=== PATIENT | male | born 1960 | race Caucasian/White ===

== ENCOUNTER 2016-11-22 19:51 | Emergency (ER) | payer MEDICAID ==
[~2016-11-22] VITALS: Ht 182.9 cm; Wt 104.6 kg
[~2016-11-22 19:51] MED LIST: ABILIFY; APIX5TAB PO; TRAMADOL
[2016-11-22 21:09] VITALS: BP 118/76
[2016-11-22] MEDS ORDERED: SODIUM CHLORIDE FLUSH 10ML SYR IVF ONE (22:00)
[2016-11-22 22:17] LABS: ASPARTATE AMINO TRANSFERASE 21 U/L (15-37); BLOOD UREA NITROGEN 23 mg/dL (7-18)
[2016-11-22 22:18] LABS: HEMOGLOBIN 14.5 g/dL (13.7-18.0)
== END 2016-11-23 01:05 | disposition home or self-care (01) ==
LOC: ED 22:05
DX: R60.0 Localized edema (principal); I82.532 Chronic embolism and thrombosis of left popliteal vein; I10 Essential (primary) hypertension; J44.9 Chronic obstructive pulmonary disease, unspecified; F17.210 Nicotine dependence, cigarettes, uncomplicated
CPT/HCPCS: 36415; 71020; 80053; 85025; 93005

== ENCOUNTER 2017-01-23 04:18 | Emergency (ER) | payer MEDICAID ==
[~2017-01-23] VITALS: Ht 182.9 cm; Wt 99.8 kg
[2017-01-23] MEDS ORDERED: HYDROcodone/APAP 5/325 TABLET ONE (05:20)
[2017-01-23] MEDS ORDERED: HYDROcodone/APAP 5/325 TABLET PO ONE (05:30)
[2017-01-23 05:50] LABS: BLOOD UREA NITROGEN 17 mg/dL (7-18)
[2017-01-23 07:17] VITALS: BP 124/80
== END 2017-01-23 07:20 | disposition home or self-care (01) ==
LOC: ED 05:44
DX: M79.661 Pain in right lower leg (principal); M79.662 Pain in left lower leg; I10 Essential (primary) hypertension; J44.9 Chronic obstructive pulmonary disease, unspecified; Z79.01 Long term (current) use of anticoagulants; Z86.718 Personal history of other venous thrombosis and embolism
CPT/HCPCS: 36415; 80048; 82040; 85025; 93970; 99284

== ENCOUNTER 2017-02-09 09:25 | Emergency (ER) | payer MEDICAID ==
[~2017-02-09] VITALS: Ht 182.9 cm; Wt 98.7 kg
[2017-02-09 09:32] VITALS: BP 136/91
== END 2017-02-09 10:32 | disposition home or self-care (01) ==
LOC: ED 10:29
DX: Z76.0 Encounter for issue of repeat prescription (principal); J44.9 Chronic obstructive pulmonary disease, unspecified; I10 Essential (primary) hypertension; Z86.718 Personal history of other venous thrombosis and embolism; Z86.73 Personal history of transient ischemic attack (TIA), and cerebral infarction without residual deficits; Z86.711 Personal history of pulmonary embolism; F17.210 Nicotine dependence, cigarettes, uncomplicated
CPT/HCPCS: 99283

== ENCOUNTER 2017-04-06 13:41 | Emergency (ER) | payer MEDICAID ==
[~2017-04-06] VITALS: Ht 182.9 cm; Wt 101.7 kg
[2017-04-06 13:55] VITALS: BP 131/68
== END 2017-04-06 16:34 | disposition home or self-care (01) ==
LOC: ED 16:15
DX: G89.29 Other chronic pain (principal); Z76.0 Encounter for issue of repeat prescription; M79.672 Pain in left foot; I10 Essential (primary) hypertension; I25.2 Old myocardial infarction; J44.9 Chronic obstructive pulmonary disease, unspecified; Z86.73 Personal history of transient ischemic attack (TIA), and cerebral infarction without residual deficits; Z86.711 Personal history of pulmonary embolism

== ENCOUNTER 2017-05-27 12:28 | Emergency (ER) | payer MEDICAID ==
[~2017-05-27] VITALS: Ht 182.9 cm; Wt 100.0 kg
[2017-05-27] MEDS ORDERED: SODIUM CHLORIDE FLUSH 10ML SYR IVF ONE (14:00)
[2017-05-27] MEDS ORDERED: ONDANSETRON 2MG/ML, 2ML IVPush ONE (14:00)
[2017-05-27] MEDS ORDERED: FAMOTIDINE 20 MG/2 ML IVP ONE (14:00)
[2017-05-27] MEDS ORDERED: SODIUM CHLORIDE 0.9% 1,000ML IVBOLUS ONE (14:00)
[2017-05-27 14:25] LABS: HEMATOCRIT 47.9 % (39.2-51.8); HEMOGLOBIN 16.2 g/dL (13.7-18.0); WHITE BLOOD COUNT 7.1 x10^3/uL (3.4-10)
[2017-05-27 14:37] LABS: ASPARTATE AMINO TRANSFERASE 13 U/L (15-37); BLOOD UREA NITROGEN 20 mg/dL (7-18)
[2017-05-27 14:43] LABS: IS PT STATUS REG ER OR PRE ER? YES
[2017-05-27] MEDS ORDERED: FAMOTIDINE 20 MG/2 ML ONE (15:24)
[2017-05-27] MEDS ORDERED: ONDANSETRON 2MG/ML, 2ML ONE (15:24)
[2017-05-27 18:16] VITALS: BP 117/60
== END 2017-05-27 18:22 | disposition home or self-care (01) ==
LOC: ED 17:50
DX: R19.7 Diarrhea, unspecified (principal); R11.2 Nausea with vomiting, unspecified; I10 Essential (primary) hypertension; I25.2 Old myocardial infarction; Z86.718 Personal history of other venous thrombosis and embolism; Z86.73 Personal history of transient ischemic attack (TIA), and cerebral infarction without residual deficits
CPT/HCPCS: 36415; 71010; 80053; 83690; 84484; 85025; 93005; 96361; 96374; 96375; 99285; J2405; J7030; S0028

== ENCOUNTER 2017-09-04 18:33 | Emergency (ER) | payer MEDICAID ==
[~2017-09-04] VITALS: Ht 182.9 cm; Wt 102.7 kg
[2017-09-04 18:55] VITALS: BP 144/84
== END 2017-09-04 19:54 | disposition home or self-care (01) ==
LOC: ED 19:43
DX: S62.626A Displaced fracture of middle phalanx of right little finger, initial encounter for closed fracture (principal); I10 Essential (primary) hypertension; F17.200 Nicotine dependence, unspecified, uncomplicated; J44.9 Chronic obstructive pulmonary disease, unspecified; I25.2 Old myocardial infarction; X58.XXXA Exposure to other specified factors, initial encounter; Y93.89 Activity, other specified; Y92.89 Other specified places as the place of occurrence of the external cause; Y99.8 Other external cause status
CPT/HCPCS: 99281

== ENCOUNTER 2017-09-21 00:11 | Inpatient (IN) | payer MEDICAID ==
[~2017-09-21] VITALS: Ht 182.9 cm; Wt 103.5 kg
[~2017-09-21 00:11] MED LIST changes: +AZIT500T2 PO; +CYCL25PO20 PO; +CYCL5TAB PO; +LEVO25TA2 PO
[2017-09-21] MEDS ORDERED: SODIUM CHLORIDE FLUSH 10ML SYR IVF ONE (01:00)
[2017-09-21] MEDS ORDERED: ALBUTEROL SULFATE 2.5 MG/3 ML NPPB ONE ×2 (01:00→02:30)
[2017-09-21 01:01] LABS: BASOPHILS # (AUTO) 0.03 x10^3/uL (0-0.1); BASOPHILS % (AUTO) 0 % (0-1); EOSINOPHILS % (AUTO) 0 % (1-7); LYMPHOCYTES # (AUTO) 1.59 x10^3/uL (1-3.4); LYMPHOCYTES % (AUTO) 13 % (22-44); MD NO; MEAN CORPUSCULAR HEMOGLOBIN 30.8 pg (27.5-34.5); MEAN CORPUSCULAR HGB CONC 32.6 g/dL (33.2-36.2); MEAN CORPUSCULAR VOLUME 94.5 fL (81-97); MEAN PLATELET VOLUME 7.3 fL (7.4-10.4); MONOCYTES # (AUTO) 1.42 x10^3/uL (0.2-0.8); MONOCYTES % (AUTO) 12 % (2-9); NEUTROPHILS # (AUTO) 9.26 x10^3/uL (1.8-6.8); NEUTROPHILS % (AUTO) 75 % (42-75); PLATELET COUNT 191 x10^3/uL (130-400); RED BLOOD COUNT 4.46 x10^6/uL (4.38-5.82); RED CELL DISTRIBUTION WIDTH 15.4 % (9.4-14.8)
[2017-09-21] MEDS ORDERED: ALBUTEROL SULFATE 2.5 MG/3 ML ONE (01:03)
[2017-09-21 01:13] LABS: ALBUMIN 3.2 g/dL (3.4-5.0); ANION GAP 8 mmol/L (5-15); CHLORIDE 113 mmol/L (98-107); CREATININE 1.03 mg/dL (0.7-1.3)
[2017-09-21] MEDS ORDERED: DILTIAZEM 125 MG in DEXTROSE 5% 100 ML IV SCH (02:21)
[2017-09-21] MEDS ORDERED: DILTIAZEM 5 MG/ML, 5ML IVPush STA (02:21)
[2017-09-21] MEDS ORDERED: DILTIAZEM 5 MG/ML, 5ML ONE (02:29)
[2017-09-21] MEDS ORDERED: ALBUTEROL/IPRATROPIUM 2.5MG/0.5MG, 3 ML NPPB ONE (02:30)
[2017-09-21] MEDS ORDERED: ALBUTEROL/IPRATROPIUM 2.5MG/0.5MG, 3 ML ONE (02:30)
[2017-09-21 04:13] VITALS: BP 134/89
[2017-09-21] MEDS ORDERED: NICOTINE 21 MG/24 HR PATCH.TD24 ONE (04:25)
[2017-09-21] MEDS: NICOTINE 21 MG/24 HR PATCH.TD24 TD SCH (04:30)
[2017-09-21] MEDS ORDERED: LABETALOL 5MG/ML, 20ML IVPush PRN (06:00)
[2017-09-21] MEDS ORDERED: TRAZODONE 50MG TABLET PO PRN (06:00)
[2017-09-21] MEDS ORDERED: GUAIFENESIN/DM 200-20MG, 10ML UDC PO PRN (06:00)
[2017-09-21] MEDS ORDERED: NITROGLYCERIN 0.4 MG BOTTLE (25 TABS) SL PRN (06:00)
[2017-09-21] MEDS ORDERED: ACETAMINOPHEN 325 MG TABLET PO PRN (06:00)
[2017-09-21] MEDS ORDERED: ALBUTEROL/IPRATROPIUM 2.5MG/0.5MG, 3 ML NPPB PRN (06:00)
[2017-09-21] MEDS: DILTIAZEM 30 MG TABLET PO SCH ×3 (06:07→17:16)
[2017-09-21 06:58] LABS: TROPONIN I 0.034 ng/mL (0.000-0.045)
[2017-09-21] MEDS: ALBUTEROL/IPRATROPIUM 2.5MG/0.5MG, 3 ML NPPB SCH ×4 (07:00→18:43)
[2017-09-21 07:38] VITALS: BP 148/93
[2017-09-21] MEDS: APIXABAN 5 MG TABLET PO SCH ×2 (08:23→19:37)
[2017-09-21] MEDS: AZITHROMYCIN 250 MG TABLET PO SCH (08:23)
[2017-09-21] MEDS: LISINOPRIL 10 MG TABLET PO SCH (09:58)
[2017-09-21] MEDS: CARVEDILOL 6.25 MG TABLET PO SCH ×2 (09:58→17:16)
[2017-09-21] MEDS: FUROSEMIDE 20 MG TABLET PO SCH (09:58)
[2017-09-21] MEDS ORDERED: FUROSEMIDE 20 MG TABLET PO ONE (10:00)
[2017-09-21 12:57] VITALS: BP 133/83
[2017-09-21 13:09] LABS: TROPONIN I 0.029 ng/mL (0.000-0.045)
[2017-09-21 13:39] LABS: HEMOGLOBIN A1C 6.5 % (4.2-6.3)
[2017-09-21] MEDS: LORazepam 2 MG/ML, 1ML IVPush PRN ×2 (16:24→20:28)
[2017-09-21 18:35] VITALS: BP 150/83
[2017-09-22] MEDS: DILTIAZEM 30 MG TABLET PO SCH ×3 (00:09→09:58)
[2017-09-22 00:12] VITALS: BP 109/65
[2017-09-22] MEDS: LORazepam 2 MG/ML, 1ML IVPush PRN ×3 (02:15→20:17)
[2017-09-22] MEDS ORDERED: DILTIAZEM 125 MG in DEXTROSE 5% 100 ML IV SCH (02:21)
[2017-09-22 05:45] LABS: BASOPHILS # (AUTO) 0.05 x10^3/uL (0-0.1); BASOPHILS % (AUTO) 0 % (0-1); EOSINOPHILS % (AUTO) 0 % (1-7); LYMPHOCYTES # (AUTO) 1.44 x10^3/uL (1-3.4); LYMPHOCYTES % (AUTO) 11 % (22-44); MD NO; MEAN CORPUSCULAR HGB CONC 32.8 g/dL (33.2-36.2); MEAN CORPUSCULAR VOLUME 94.5 fL (81-97); MEAN PLATELET VOLUME 7.5 fL (7.4-10.4); MONOCYTES # (AUTO) 1.12 x10^3/uL (0.2-0.8); MONOCYTES % (AUTO) 8 % (2-9); NEUTROPHILS # (AUTO) 10.73 x10^3/uL (1.8-6.8); NEUTROPHILS % (AUTO) 80 % (42-75); PLATELET COUNT 191 x10^3/uL (130-400); RED BLOOD COUNT 4.74 x10^6/uL (4.38-5.82)
[2017-09-22 05:56] LABS: ANION GAP 6 mmol/L (5-15); CALCIUM 8.5 mg/dL (8.5-10.1); CHLORIDE 103 mmol/L (98-107); CREATININE 1.09 mg/dL (0.7-1.3)
[2017-09-22] MEDS: CARVEDILOL 6.25 MG TABLET PO SCH (06:08)
[2017-09-22] MEDS: ALBUTEROL/IPRATROPIUM 2.5MG/0.5MG, 3 ML NPPB SCH (07:00)
[2017-09-22 07:40] VITALS: BP 130/78
[2017-09-22] MEDS: APIXABAN 5 MG TABLET PO SCH ×2 (08:20→20:15)
[2017-09-22] MEDS: NICOTINE 21 MG/24 HR PATCH.TD24 TD SCH (08:20)
[2017-09-22] MEDS: AZITHROMYCIN 250 MG TABLET PO SCH (08:21)
[2017-09-22] MEDS: LISINOPRIL 10 MG TABLET PO SCH (08:21)
[2017-09-22] MEDS: FUROSEMIDE 20 MG TABLET PO SCH (08:21)
[2017-09-22] MEDS: MULTIVITAMIN 1 TABLET PO SCH (09:58)
[2017-09-22] MEDS ORDERED: ERGOCALCIFEROL 50,000 UNIT CAPSULE PO SCH (10:00)
[2017-09-22 12:31] VITALS: BP 121/80
[2017-09-22] MEDS: METOPROLOL SUCCINATE 25 MG TAB.ER.24H PO SCH (12:44)
[2017-09-22] MEDS: DILTIAZEM 60 MG TABLET PO SCH ×2 (16:32→21:24)
[2017-09-22 18:29] VITALS: BP 106/71
[2017-09-22] MEDS ORDERED: DILTIAZEM 30 MG TABLET ONE (20:11)
[2017-09-22] MEDS: DOXYCYCLINE 100MG TABLET PO SCH (20:15)
[2017-09-23 02:43] VITALS: BP 117/80
[2017-09-23] MEDS: DILTIAZEM 60 MG TABLET PO SCH ×2 (04:00→09:55)
[2017-09-23] MEDS ORDERED: DILTIAZEM 30 MG TABLET ONE ×2 (04:08→09:53)
[2017-09-23] MEDS: METOPROLOL SUCCINATE 25 MG TAB.ER.24H PO SCH (05:45)
[2017-09-23] MEDS: LORazepam 2 MG/ML, 1ML IVPush PRN (05:49)
[2017-09-23 08:25] VITALS: BP 119/87
[2017-09-23] MEDS: LISINOPRIL 10 MG TABLET PO SCH (08:39)
[2017-09-23] MEDS: DOXYCYCLINE 100MG TABLET PO SCH (08:39)
[2017-09-23] MEDS: APIXABAN 5 MG TABLET PO SCH (08:39)
[2017-09-23] MEDS: MULTIVITAMIN 1 TABLET PO SCH (08:39)
[2017-09-23] MEDS: FUROSEMIDE 20 MG TABLET PO SCH (08:40)
[2017-09-23] MEDS: NICOTINE 21 MG/24 HR PATCH.TD24 TD SCH (08:40)
[2017-09-23] MEDS ORDERED: FLUT1AER INH (09:58)
[2017-09-23] MEDS ORDERED: DOXY100T PO (09:58)
[2017-09-23] MEDS ORDERED: MULT1TAB60 PO (09:58)
[2017-09-23] MEDS ORDERED: PRED5TAB PO (09:58)
[2017-09-23] MEDS ORDERED: METO25TA91 PO (09:58)
[2017-09-23] MEDS ORDERED: FURO20TA3 PO (09:58)
[2017-09-23] MEDS ORDERED: ERGO500017 PO (09:58)
[2017-09-23] MEDS ORDERED: DILT180C PO (09:58)
[2017-09-23] MEDS ORDERED: LISI-167 PO (09:58)
== END 2017-09-23 11:20 | disposition home or self-care (01) | DRG 308 ==
LOC: ED 00:24 → EDIP 02:29 → 5SO 04:04 → DCLOUNGE 09-23 11:02
PROVIDERS: ADMIT Hospitalist; ATTEND Hospitalist
DX: I48.0 Paroxysmal atrial fibrillation (principal); I50.23 Acute on chronic systolic (congestive) heart failure; D68.59 Other primary thrombophilia; E87.2 Acidosis; E44.0 Moderate protein-calorie malnutrition; J44.1 Chronic obstructive pulmonary disease with (acute) exacerbation; E03.9 Hypothyroidism, unspecified; I11.0 Hypertensive heart disease with heart failure; E55.9 Vitamin D deficiency, unspecified; F15.10 Other stimulant abuse, uncomplicated; F17.210 Nicotine dependence, cigarettes, uncomplicated; S62.606A Fracture of unspecified phalanx of right little finger, initial encounter for closed fracture; I25.10 Atherosclerotic heart disease of native coronary artery without angina pectoris; I25.2 Old myocardial infarction; Z79.01 Long term (current) use of anticoagulants; Z59.0 Homelessness; Z86.711 Personal history of pulmonary embolism; Z86.718 Personal history of other venous thrombosis and embolism; Z86.73 Personal history of transient ischemic attack (TIA), and cerebral infarction without residual deficits; Z91.14 Patient's other noncompliance with medication regimen
CPT/HCPCS: 36415; 71045; 80048; 82040; 82306; 82607; 83036; 83735; 84484; 85025; 93005; 94640; 96374; J7613; J7620; J2060; J7512

== ENCOUNTER 2017-10-04 01:14 | Emergency (ER) | payer MEDICAID ==
[~2017-10-04] VITALS: Ht 182.9 cm; Wt 101.9 kg
[~2017-10-04 01:14] MED LIST changes: +DILT180C PO; +DOXY100T PO; +ERGO500017 PO; +FLUT1AER INH; +FURO20TA3 PO; +LISI-167 PO; +METO25TA91 PO; +MULT1TAB60 PO; +PRED5TAB PO
[2017-10-04 01:17] VITALS: BP 121/82
== END 2017-10-04 03:09 | disposition home or self-care (01) ==
LOC: ED 01:55
DX: F41.1 Generalized anxiety disorder (principal); F15.10 Other stimulant abuse, uncomplicated; J44.9 Chronic obstructive pulmonary disease, unspecified; I10 Essential (primary) hypertension; I48.91 Unspecified atrial fibrillation; I25.2 Old myocardial infarction
CPT/HCPCS: 93005; 99284

== ENCOUNTER 2017-10-07 11:00 | Inpatient (IN) | payer MEDICAID ==
[~2017-10-07] VITALS: Ht 182.9 cm; Wt 92.9 kg
[2017-10-07 13:12] LABS: BASOPHILS # (AUTO) 0.02 x10^3/uL (0-0.1); BASOPHILS % (AUTO) 0 % (0-1); EOSINOPHILS # (AUTO) 0.13 x10^3/uL (0-0.4); EOSINOPHILS % (AUTO) 2 % (1-7); LYMPHOCYTES # (AUTO) 1.59 x10^3/uL (1-3.4); LYMPHOCYTES % (AUTO) 26 % (22-44); MD NO; MEAN CORPUSCULAR HEMOGLOBIN 30.9 pg (27.5-34.5); MEAN CORPUSCULAR HGB CONC 33.2 g/dL (33.2-36.2); MEAN CORPUSCULAR VOLUME 92.9 fL (81-97); MEAN PLATELET VOLUME 7.6 fL (7.4-10.4); MONOCYTES # (AUTO) 0.48 x10^3/uL (0.2-0.8); MONOCYTES % (AUTO) 8 % (2-9); NEUTROPHILS # (AUTO) 3.85 x10^3/uL (1.8-6.8); NEUTROPHILS % (AUTO) 63 % (42-75); PLATELET COUNT 161 x10^3/uL (130-400); RED BLOOD COUNT 4.64 x10^6/uL (4.38-5.82); RED CELL DISTRIBUTION WIDTH 14.7 % (9.4-14.8)
[2017-10-07 13:24] LABS: ALBUMIN 3.4 g/dL (3.4-5.0); CALCIUM 8.4 mg/dL (8.5-10.1); CHLORIDE 109 mmol/L (98-107); CREATININE 1.11 mg/dL (0.7-1.3)
[2017-10-07 13:26] LABS: ANION GAP 8 mmol/L (5-15); TROPONIN I 0.026 ng/mL (0.000-0.045)
[2017-10-07 14:36] LABS: MICROSCOPIC NOT IND
[2017-10-07 14:40] LABS: CULTURE INDICATED? NO
[2017-10-07] MEDS ORDERED: METOPROLOL TARTRATE 25 MG TABLET ONE (15:28)
[2017-10-07] MEDS ORDERED: METOPROLOL TARTRATE 50 MG TABLET PO ONE (15:30)
[2017-10-07] MEDS ORDERED: LORazepam 2 MG/ML, 1ML IM ONE (15:30)
[2017-10-07] MEDS ORDERED: LORazepam 2 MG/ML, 1ML ONE (15:34)
[2017-10-07] MEDS ORDERED: DILTIAZEM 5 MG/ML, 5ML IV ONE (16:30)
[2017-10-07] MEDS ORDERED: DILTIAZEM 5 MG/ML, 5ML ONE (16:41)
[2017-10-07] MEDS ORDERED: ERGOCALCIFEROL 50,000 UNIT CAPSULE PO SCH (20:00)
[2017-10-07] MEDS ORDERED: ONDANSETRON 2MG/ML, 2ML IVPush PRN (20:00)
[2017-10-07] MEDS ORDERED: CYCLOBENZAPRINE 10 MG TABLET PO PRN (20:00)
[2017-10-07] MEDS ORDERED: POLYETHYLENE GLYCOL 17 GM PACKET PO PRN (20:00)
[2017-10-07] MEDS ORDERED: hydrALAzine 20 MG/ML, 1ML IVPush PRN (20:00)
[2017-10-07] MEDS ORDERED: BISACODYL 10 MG SUPP PR PRN (20:00)
[2017-10-07] MEDS ORDERED: DOCUSATE 100 MG CAPSULE PO PRN (20:00)
[2017-10-07] MEDS ORDERED: ENALAPRILAT 1.25 MG/ML, 2ML IVPush PRN (20:00)
[2017-10-07] MEDS ORDERED: ACETAMINOPHEN 325 MG TABLET PO PRN (20:00)
[2017-10-07 20:27] LABS: FREE T4 (FREE THYROXINE) 0.86 ng/dL (0.76-1.46); THYROID STIMULATING HORMONE 3.28 mIU/L (0.358-3.740)
[2017-10-07 20:37] VITALS: BP 117/79
[2017-10-07 20:43] LABS: HEMOGLOBIN A1C 6.9 % (4.2-6.3)
[2017-10-07] MEDS ORDERED: HEPARIN 5,000 UNITS/ML, 1ML SQ SCH (21:00)
[2017-10-07] MEDS: NICOTINE 14MG/24 HR PATCH.TD24 TD SCH (21:45)
[2017-10-07] MEDS: APIXABAN 5 MG TABLET PO SCH (21:45)
[2017-10-07 23:03] LABS: AMPHETAMINE SCREEN, URINE Negative (Negative); BARBITURATE SCREEN, URINE Negative (Negative); BENZODIAZEPINE SCREEN, URINE Negative (Negative); CANNABINOID SCREEN, URINE Negative (Negative); COCAINE SCREEN, URINE Negative (Negative); METHADONE SCREEN, URINE Negative (Negative); OPIATE SCREEN, URINE Negative (Negative)
[2017-10-08 00:26] LABS: TROPONIN I 0.042 ng/mL (0.000-0.045)
[2017-10-08] MEDS ORDERED: ALBUTEROL/IPRATROPIUM 2.5MG/0.5MG, 3 ML NPPB PRN (00:30)
[2017-10-08 00:56] VITALS: BP 129/80
[2017-10-08 06:17] LABS: BASOPHILS # (AUTO) 0.02 x10^3/uL (0-0.1); BASOPHILS % (AUTO) 0 % (0-1); EOSINOPHILS # (AUTO) 0.15 x10^3/uL (0-0.4); EOSINOPHILS % (AUTO) 2 % (1-7); LYMPHOCYTES # (AUTO) 1.43 x10^3/uL (1-3.4); LYMPHOCYTES % (AUTO) 21 % (22-44); MD NO; MEAN CORPUSCULAR HEMOGLOBIN 31.1 pg (27.5-34.5); MEAN CORPUSCULAR HGB CONC 33.4 g/dL (33.2-36.2); MEAN CORPUSCULAR VOLUME 93.1 fL (81-97); MEAN PLATELET VOLUME 7.5 fL (7.4-10.4); MONOCYTES # (AUTO) 0.52 x10^3/uL (0.2-0.8); MONOCYTES % (AUTO) 8 % (2-9); NEUTROPHILS # (AUTO) 4.64 x10^3/uL (1.8-6.8); NEUTROPHILS % (AUTO) 69 % (42-75); PLATELET COUNT 155 x10^3/uL (130-400); RED BLOOD COUNT 4.85 x10^6/uL (4.38-5.82); RED CELL DISTRIBUTION WIDTH 14.8 % (9.4-14.8)
[2017-10-08] MEDS: LEVOTHYROXINE 25 MCG TABLET PO SCH (06:23)
[2017-10-08] MEDS: METOPROLOL TARTRATE 50 MG TABLET PO SCH ×2 (06:23→16:32)
[2017-10-08 06:30] LABS: ALBUMIN 3.2 g/dL (3.4-5.0); ANION GAP 8 mmol/L (5-15); CALCIUM 8.8 mg/dL (8.5-10.1); CHLORIDE 110 mmol/L (98-107)
[2017-10-08 06:33] LABS: ALANINE AMINOTRANSFERASE 28 U/L (12-78); ALKALINE PHOSPHATASE 53 U/L (45-117); BILIRUBIN,TOTAL 0.3 mg/dL (0.2-1.0); CHOL/HDL RATIO 3.6; CHOLESTEROL, TOTAL 160 mg/dL (140-239); CREATININE 1.16 mg/dL (0.7-1.3); HDL CHOL % 28 % (26-37); HDL CHOLESTEROL (DIRECT) 45 mg/dL (40-60); LDL CHOLESTEROL,CALCULATED 97 mg/dL (54-169); LDL/HDL RATIO 2.2 (0.5-3.0); TOTAL PROTEIN 5.9 g/dL (6.4-8.2); TRIGLYCERIDES 91 mg/dL (50-200); TROPONIN I 0.044 ng/mL (0.000-0.045); VLDL CHOLESTEROL 18 mg/dL (0-25)
[2017-10-08 06:45] VITALS: BP 128/88
[2017-10-08] MEDS ORDERED: REGADENOSON 0.4 MG/5 ML SYRINGE ONE (08:15)
[2017-10-08] MEDS: LISINOPRIL 10 MG TABLET PO SCH (11:26)
[2017-10-08] MEDS: APIXABAN 5 MG TABLET PO SCH ×2 (11:26→21:05)
[2017-10-08] MEDS: FUROSEMIDE 20 MG TABLET PO SCH (11:27)
[2017-10-08] MEDS: MULTIVITAMIN 1 TABLET PO SCH (11:27)
[2017-10-08] MEDS: FLUTICASONE/VILANTEROL 100-25MCG/INH INH SCH (11:29)
[2017-10-08 12:34] VITALS: BP 128/75
[2017-10-08 18:33] VITALS: BP 117/77
[2017-10-08] MEDS: NICOTINE 14MG/24 HR PATCH.TD24 TD SCH (21:05)
[2017-10-09 01:35] VITALS: BP 127/90
[2017-10-09] MEDS: METOPROLOL TARTRATE 50 MG TABLET PO SCH (05:38)
[2017-10-09] MEDS: LEVOTHYROXINE 25 MCG TABLET PO SCH (05:38)
[2017-10-09 07:36] VITALS: BP 123/86
[2017-10-09] MEDS: MULTIVITAMIN 1 TABLET PO SCH (09:07)
[2017-10-09] MEDS: APIXABAN 5 MG TABLET PO SCH ×2 (09:07→20:11)
[2017-10-09] MEDS: FUROSEMIDE 20 MG TABLET PO SCH (09:07)
[2017-10-09] MEDS: LISINOPRIL 10 MG TABLET PO SCH (09:07)
[2017-10-09] MEDS: FLUTICASONE/VILANTEROL 100-25MCG/INH INH SCH (09:27)
[2017-10-09] MEDS ORDERED: METO50TA82 PO (09:48)
[2017-10-09] MEDS ORDERED: DIGO125T PO (09:48)
[2017-10-09] MEDS: DIGOXIN 0.125 MG TABLET PO SCH (10:41)
[2017-10-09] MEDS ORDERED: METO-264 PO (10:57)
[2017-10-09] MEDS ORDERED: DIGOXIN 0.25 MG/ML, 2ML ONE (14:35)
[2017-10-09] MEDS ORDERED: DIGOXIN 0.25 MG/ML, 2ML IVPush SCH (15:00)
[2017-10-09] MEDS ORDERED: DIGOXIN 0.25 MG/ML, 2ML IVPush ONE (15:00)
[2017-10-09] MEDS ORDERED: DIPHENHYDRAMINE 25 MG CAPSULE PO PRN (15:00)
[2017-10-09] MEDS ORDERED: METOPROLOL SUCCINATE 50 MG TAB.ER.24H ONE (17:57)
[2017-10-09 17:59] VITALS: BP 118/75
[2017-10-09 18:00] VITALS: BP 118/75
[2017-10-09] MEDS: METOPROLOL SUCCINATE 50 MG TAB.ER.24H PO SCH (18:01)
[2017-10-09 19:17] VITALS: BP 107/65
[2017-10-09] MEDS: NICOTINE 14MG/24 HR PATCH.TD24 TD SCH (20:11)
[2017-10-10 01:11] VITALS: BP 102/74
[2017-10-10 07:17] VITALS: BP 115/82
[2017-10-10] MEDS: DIGOXIN 0.125 MG TABLET PO SCH (08:50)
[2017-10-10] MEDS: FUROSEMIDE 20 MG TABLET PO SCH (08:50)
[2017-10-10] MEDS: LEVOTHYROXINE 25 MCG TABLET PO SCH (08:50)
[2017-10-10] MEDS: LISINOPRIL 10 MG TABLET PO SCH (08:51)
[2017-10-10] MEDS: MULTIVITAMIN 1 TABLET PO SCH (08:51)
[2017-10-10] MEDS: APIXABAN 5 MG TABLET PO SCH (08:51)
[2017-10-10] MEDS: METOPROLOL SUCCINATE 50 MG TAB.ER.24H PO SCH (08:53)
[2017-10-10] MEDS: FLUTICASONE/VILANTEROL 100-25MCG/INH INH SCH (08:53)
[2017-10-10] MEDS ORDERED: LISI-167 PO (12:36)
[2017-10-10 13:15] VITALS: BP 102/68
== END 2017-10-10 15:52 | disposition home or self-care (01) | DRG 309 ==
LOC: ED 12:12 → EDIP 16:19 → 5SO 19:45
PROVIDERS: ADMIT Internal Medicine; ATTEND Internal Medicine
DX: I48.91 Unspecified atrial fibrillation (principal); D68.59 Other primary thrombophilia; I42.9 Cardiomyopathy, unspecified; E44.0 Moderate protein-calorie malnutrition; I11.0 Hypertensive heart disease with heart failure; I50.22 Chronic systolic (congestive) heart failure; E03.9 Hypothyroidism, unspecified; E55.9 Vitamin D deficiency, unspecified; F15.10 Other stimulant abuse, uncomplicated; F17.210 Nicotine dependence, cigarettes, uncomplicated; F41.1 Generalized anxiety disorder; I25.10 Atherosclerotic heart disease of native coronary artery without angina pectoris; I25.2 Old myocardial infarction; L30.9 Dermatitis, unspecified; Z79.01 Long term (current) use of anticoagulants; Z79.899 Other long term (current) drug therapy; Z86.711 Personal history of pulmonary embolism; Z86.718 Personal history of other venous thrombosis and embolism; Z86.73 Personal history of transient ischemic attack (TIA), and cerebral infarction without residual deficits; J44.9 Chronic obstructive pulmonary disease, unspecified; Z68.27 Body mass index [BMI] 27.0-27.9, adult
CPT/HCPCS: 36415; 71045; 78452; 80048; 80053; 80061; 80307; 81003; 82040; 83036; 83735; 83880; 84439; 84443; 84484; 85025; 93005; 93017; 96372; 96374; J2785; A9502; C9898; J1160; J2060; Q0163

== ENCOUNTER 2017-10-11 06:44 | Emergency (ER) | payer MEDICAID ==
[~2017-10-11] VITALS: Ht 182.9 cm; Wt 98.0 kg
[~2017-10-11 06:44] MED LIST changes: +DIGO125T PO; +METO-264 PO; +METO50TA82 PO
[2017-10-11] MEDS ORDERED: SODIUM CHLORIDE 0.9% 1,000ML IVBOLUS ONE (07:30)
[2017-10-11] MEDS ORDERED: METOPROLOL 1 MG/ML, 5ML IVPush PRN (07:30)
[2017-10-11 07:55] LABS: BASOPHILS # (AUTO) 0.02 x10^3/uL (0-0.1); BASOPHILS % (AUTO) 0 % (0-1); EOSINOPHILS # (AUTO) 0.13 x10^3/uL (0-0.4); EOSINOPHILS % (AUTO) 2 % (1-7); LYMPHOCYTES # (AUTO) 1.87 x10^3/uL (1-3.4); LYMPHOCYTES % (AUTO) 24 % (22-44); MD NO; MEAN CORPUSCULAR HEMOGLOBIN 30.9 pg (27.5-34.5); MEAN CORPUSCULAR HGB CONC 33.6 g/dL (33.2-36.2); MEAN PLATELET VOLUME 7.1 fL (7.4-10.4); MONOCYTES # (AUTO) 1.01 x10^3/uL (0.2-0.8); MONOCYTES % (AUTO) 13 % (2-9); NEUTROPHILS # (AUTO) 4.86 x10^3/uL (1.8-6.8); NEUTROPHILS % (AUTO) 62 % (42-75); PLATELET COUNT 187 x10^3/uL (130-400); RED BLOOD COUNT 5.44 x10^6/uL (4.38-5.82); RED CELL DISTRIBUTION WIDTH 14.4 % (9.4-14.8)
[2017-10-11 07:56] LABS: ALANINE AMINOTRANSFERASE 27 U/L (12-78); ALBUMIN 3.5 g/dL (3.4-5.0); ANION GAP 7 mmol/L (5-15); CALCIUM 9.3 mg/dL (8.5-10.1); CHLORIDE 107 mmol/L (98-107)
[2017-10-11 08:07] VITALS: BP 109/81
[2017-10-11 08:14] LABS: ALKALINE PHOSPHATASE 59 U/L (45-117); BILIRUBIN,TOTAL 0.4 mg/dL (0.2-1.0); CREATININE 1.32 mg/dL (0.7-1.3); TOTAL PROTEIN 6.6 g/dL (6.4-8.2)
[2017-10-11] MEDS ORDERED: DIGOXIN 0.125 MG TABLET PO SCH (08:30)
[2017-10-11] MEDS ORDERED: APIXABAN 5 MG TABLET PO ONE (09:00)
[2017-10-11] MEDS ORDERED: LORazepam 1MG TABLET ONE (09:41)
[2017-10-11] MEDS ORDERED: LORazepam 1MG TABLET PO ONE (10:00)
== END 2017-10-11 10:53 | disposition home or self-care (01) ==
LOC: ED 08:02
DX: I48.2 Chronic atrial fibrillation (principal); Z72.89 Other problems related to lifestyle; J44.9 Chronic obstructive pulmonary disease, unspecified; I11.0 Hypertensive heart disease with heart failure; I50.9 Heart failure, unspecified; E03.9 Hypothyroidism, unspecified; Z86.718 Personal history of other venous thrombosis and embolism; Z86.73 Personal history of transient ischemic attack (TIA), and cerebral infarction without residual deficits; Z86.711 Personal history of pulmonary embolism; Z79.899 Other long term (current) drug therapy
CPT/HCPCS: 36415; 71045; 80053; 80162; 80307; 85025; 93005; 96361; 96374; 99285; J7030

== ENCOUNTER 2017-10-16 22:29 | Emergency (ER) | payer MEDICAID ==
[~2017-10-16] VITALS: Ht 182.9 cm; Wt 100.1 kg
[2017-10-16 22:31] VITALS: BP 127/88
[2017-10-17] MEDS ORDERED: INDOMETHACIN 50 MG CAPSULE PO ONE
[2017-10-17] MEDS ORDERED: INDOMETHACIN 50 MG CAPSULE ONE (00:03)
== END 2017-10-17 00:13 | disposition home or self-care (01) ==
LOC: ED 23:58
DX: M1A.9XX1 Chronic gout, unspecified, with tophus (tophi) (principal); M10.00 Idiopathic gout, unspecified site; M79.672 Pain in left foot; E03.9 Hypothyroidism, unspecified; J44.9 Chronic obstructive pulmonary disease, unspecified; I25.2 Old myocardial infarction; Z86.718 Personal history of other venous thrombosis and embolism; Z59.0 Homelessness
CPT/HCPCS: 99283

== ENCOUNTER 2017-10-22 03:15 | Inpatient (IN) | payer MEDICAID ==
[~2017-10-22] VITALS: Ht 182.9 cm; Wt 95.0 kg
[2017-10-22] MEDS ORDERED: SODIUM CHLORIDE 0.9% 1,000ML IVBOLUS ONE (04:00)
[2017-10-22] MEDS ORDERED: DILTIAZEM 5 MG/ML, 5ML IVPush ONE (04:00)
[2017-10-22 04:19] LABS: BASOPHILS # (AUTO) 0.02 x10^3/uL (0-0.1); BASOPHILS % (AUTO) 0 % (0-1); EOSINOPHILS # (AUTO) 0.04 x10^3/uL (0-0.4); EOSINOPHILS % (AUTO) 0 % (1-7); LYMPHOCYTES # (AUTO) 1.84 x10^3/uL (1-3.4); LYMPHOCYTES % (AUTO) 19 % (22-44); MD NO; MEAN CORPUSCULAR HEMOGLOBIN 30.7 pg (27.5-34.5); MEAN CORPUSCULAR VOLUME 93.3 fL (81-97); MEAN PLATELET VOLUME 7.7 fL (7.4-10.4); MONOCYTES # (AUTO) 1.07 x10^3/uL (0.2-0.8); MONOCYTES % (AUTO) 11 % (2-9); NEUTROPHILS # (AUTO) 6.74 x10^3/uL (1.8-6.8); NEUTROPHILS % (AUTO) 69 % (42-75); PLATELET COUNT 212 x10^3/uL (130-400); RED BLOOD COUNT 4.66 x10^6/uL (4.38-5.82); RED CELL DISTRIBUTION WIDTH 14.8 % (9.4-14.8)
[2017-10-22 04:29] LABS: ALANINE AMINOTRANSFERASE 22 U/L (12-78); ALBUMIN 3.2 g/dL (3.4-5.0); ANION GAP 4 mmol/L (5-15); CALCIUM 8.6 mg/dL (8.5-10.1); CHLORIDE 112 mmol/L (98-107); CREATININE 1.12 mg/dL (0.7-1.3)
[2017-10-22 04:31] LABS: ALKALINE PHOSPHATASE 59 U/L (45-117); BILIRUBIN,TOTAL 0.3 mg/dL (0.2-1.0); TOTAL PROTEIN 6.3 g/dL (6.4-8.2)
[2017-10-22] MEDS ORDERED: DILTIAZEM 5 MG/ML, 5ML ONE (04:45)
[2017-10-22 06:09] VITALS: BP 142/97
[2017-10-22 06:20] LABS: TROPONIN I 0.043 ng/mL (0.000-0.045)
[2017-10-22] MEDS ORDERED: hydrALAzine 20 MG/ML, 1ML IVPush PRN (07:00)
[2017-10-22] MEDS ORDERED: ONDANSETRON 2MG/ML, 2ML IVPush PRN (07:00)
[2017-10-22] MEDS ORDERED: FUROSEMIDE 20 MG/2 ML IV ONE (07:00)
[2017-10-22] MEDS ORDERED: ERGOCALCIFEROL 50,000 UNIT CAPSULE PO SCH (07:00)
[2017-10-22] MEDS ORDERED: ENALAPRILAT 1.25 MG/ML, 2ML IVPush PRN (07:00)
[2017-10-22] MEDS ORDERED: ACETAMINOPHEN 325 MG TABLET PO PRN (07:00)
[2017-10-22] MEDS ORDERED: morphine SULFATE 10 MG/ML, 1ML IVPush PRN (07:00)
[2017-10-22] MEDS ORDERED: BISACODYL 10 MG SUPP PR PRN (07:00)
[2017-10-22] MEDS ORDERED: OXYcodone IR 5MG TABLET PO PRN (07:00)
[2017-10-22] MEDS ORDERED: CYCLOBENZAPRINE 10 MG TABLET PO PRN (07:00)
[2017-10-22] MEDS ORDERED: POLYETHYLENE GLYCOL 17 GM PACKET PO PRN (07:00)
[2017-10-22 07:23] VITALS: BP 149/95
[2017-10-22 07:32] LABS: FREE T4 (FREE THYROXINE) 0.97 ng/dL (0.76-1.46); THYROID STIMULATING HORMONE 3.46 mIU/L (0.358-3.740)
[2017-10-22] MEDS: ALBUTEROL/IPRATROPIUM 2.5MG/0.5MG, 3 ML NPPB SCH ×4 (07:34→21:00)
[2017-10-22] MEDS: FUROSEMIDE 20 MG/2 ML IV SCH (09:30)
[2017-10-22] MEDS: SENNA/DOCUSATE TABLET PO SCH (09:30)
[2017-10-22] MEDS: MULTIVITAMIN 1 TABLET PO SCH (09:31)
[2017-10-22] MEDS: LISINOPRIL 5 MG TABLET PO SCH (09:31)
[2017-10-22] MEDS: APIXABAN 5 MG TABLET PO SCH ×2 (09:31→21:59)
[2017-10-22] MEDS: NICOTINE 7 MG/24 HR PATCH.TD24 TD SCH (09:32)
[2017-10-22] MEDS: FLUTICASONE/VILANTEROL 100-25MCG/INH INH SCH (10:20)
[2017-10-22] MEDS: DILTIAZEM 125 MG in SODIUM CHLORIDE 0.9% 100 ML IV PRN (10:21)
[2017-10-22 11:11] LABS: AMPHETAMINE SCREEN, URINE Positive (Negative); BARBITURATE SCREEN, URINE Negative (Negative); BENZODIAZEPINE SCREEN, URINE Negative (Negative); CANNABINOID SCREEN, URINE Negative (Negative); COCAINE SCREEN, URINE Negative (Negative); METHADONE SCREEN, URINE Negative (Negative); OPIATE SCREEN, URINE Negative (Negative)
[2017-10-22 14:22] VITALS: BP 131/74
[2017-10-22 19:10] VITALS: BP 101/67
[2017-10-23 01:09] VITALS: BP 127/83
[2017-10-23 05:46] LABS: ALBUMIN 2.9 g/dL (3.4-5.0); ANION GAP 6 mmol/L (5-15); CALCIUM 8.9 mg/dL (8.5-10.1); CHLORIDE 108 mmol/L (98-107)
[2017-10-23 05:49] LABS: ALANINE AMINOTRANSFERASE 22 U/L (12-78); ALKALINE PHOSPHATASE 60 U/L (45-117); BILIRUBIN,TOTAL 0.3 mg/dL (0.2-1.0); CREATININE 1.11 mg/dL (0.7-1.3); TOTAL PROTEIN 5.8 g/dL (6.4-8.2)
[2017-10-23 05:53] LABS: BASOPHILS # (AUTO) 0.02 x10^3/uL (0-0.1); BASOPHILS % (AUTO) 0 % (0-1); EOSINOPHILS # (AUTO) 0.07 x10^3/uL (0-0.4); EOSINOPHILS % (AUTO) 1 % (1-7); LYMPHOCYTES # (AUTO) 1.77 x10^3/uL (1-3.4); LYMPHOCYTES % (AUTO) 25 % (22-44); MD NO; MEAN CORPUSCULAR HEMOGLOBIN 31.3 pg (27.5-34.5); MEAN CORPUSCULAR HGB CONC 33.6 g/dL (33.2-36.2); MEAN CORPUSCULAR VOLUME 93.1 fL (81-97); MEAN PLATELET VOLUME 7.1 fL (7.4-10.4); MONOCYTES # (AUTO) 0.82 x10^3/uL (0.2-0.8); MONOCYTES % (AUTO) 11 % (2-9); NEUTROPHILS # (AUTO) 4.52 x10^3/uL (1.8-6.8); NEUTROPHILS % (AUTO) 63 % (42-75); PLATELET COUNT 224 x10^3/uL (130-400); RED BLOOD COUNT 4.48 x10^6/uL (4.38-5.82); RED CELL DISTRIBUTION WIDTH 14.4 % (9.4-14.8)
[2017-10-23] MEDS: ALBUTEROL/IPRATROPIUM 2.5MG/0.5MG, 3 ML NPPB SCH ×4 (06:00→19:17)
[2017-10-23] MEDS ORDERED: ALBUTEROL SULFATE 2.5 MG/3 ML NPPB PRN (06:00)
[2017-10-23] MEDS: DILTIAZEM 125 MG in SODIUM CHLORIDE 0.9% 100 ML IV PRN (06:20)
[2017-10-23 07:16] VITALS: BP 109/58
[2017-10-23] MEDS: APIXABAN 5 MG TABLET PO SCH ×2 (08:33→21:17)
[2017-10-23] MEDS: MULTIVITAMIN 1 TABLET PO SCH (08:34)
[2017-10-23] MEDS: LISINOPRIL 5 MG TABLET PO SCH (08:34)
[2017-10-23] MEDS: NICOTINE 7 MG/24 HR PATCH.TD24 TD SCH (08:34)
[2017-10-23] MEDS: SENNA/DOCUSATE TABLET PO SCH (08:34)
[2017-10-23] MEDS: FUROSEMIDE 20 MG/2 ML IV SCH (08:36)
[2017-10-23] MEDS: FLUTICASONE/VILANTEROL 100-25MCG/INH INH SCH (08:40)
[2017-10-23 14:36] VITALS: BP 112/72
[2017-10-23] MEDS: DILTIAZEM 240 MG CAP.ER.24H PO SCH (17:39)
[2017-10-23 19:39] VITALS: BP 102/54
[2017-10-24 02:02] VITALS: BP 108/64
[2017-10-24 06:53] VITALS: BP 122/79
[2017-10-24] MEDS: ALBUTEROL/IPRATROPIUM 2.5MG/0.5MG, 3 ML NPPB SCH (07:15)
[2017-10-24] MEDS: FLUTICASONE/VILANTEROL 100-25MCG/INH INH SCH (08:29)
[2017-10-24] MEDS: NICOTINE 7 MG/24 HR PATCH.TD24 TD SCH (08:30)
[2017-10-24] MEDS: MULTIVITAMIN 1 TABLET PO SCH (08:30)
[2017-10-24] MEDS: LISINOPRIL 5 MG TABLET PO SCH (08:30)
[2017-10-24] MEDS: SENNA/DOCUSATE TABLET PO SCH (08:30)
[2017-10-24] MEDS: APIXABAN 5 MG TABLET PO SCH (08:30)
[2017-10-24] MEDS: DILTIAZEM 240 MG CAP.ER.24H PO SCH (08:30)
[2017-10-24] MEDS ORDERED: BUSP10TA PO (08:43)
[2017-10-24] MEDS ORDERED: ALLO300T PO (08:43)
[2017-10-24] MEDS ORDERED: INDO25CA PO (08:43)
[2017-10-24] MEDS ORDERED: FUROSEMIDE 20 MG TABLET PO SCH (09:00)
[2017-10-24 13:17] VITALS: BP 108/68
[2017-10-24] MEDS ORDERED: DILT240C55 PO (15:16)
[2017-10-24] MEDS ORDERED: METO25TA91 PO (15:17)
== END 2017-10-24 17:50 | disposition home or self-care (01) | DRG 308 ==
LOC: ED 04:59 → EDIP 05:29 → 5SO 06:05
PROVIDERS: ADMIT Internal Medicine; ATTEND Internal Medicine
DX: I48.91 Unspecified atrial fibrillation (principal); I50.23 Acute on chronic systolic (congestive) heart failure; E44.0 Moderate protein-calorie malnutrition; D68.69 Other thrombophilia; I11.0 Hypertensive heart disease with heart failure; I48.2 Chronic atrial fibrillation; E03.9 Hypothyroidism, unspecified; E55.9 Vitamin D deficiency, unspecified; F41.1 Generalized anxiety disorder; F17.210 Nicotine dependence, cigarettes, uncomplicated; F41.9 Anxiety disorder, unspecified; F15.10 Other stimulant abuse, uncomplicated; J44.9 Chronic obstructive pulmonary disease, unspecified; Z86.718 Personal history of other venous thrombosis and embolism; Z86.73 Personal history of transient ischemic attack (TIA), and cerebral infarction without residual deficits; Z86.711 Personal history of pulmonary embolism; I25.2 Old myocardial infarction; Z91.14 Patient's other noncompliance with medication regimen; Z68.28 Body mass index [BMI] 28.0-28.9, adult; Z59.0 Homelessness
CPT/HCPCS: 36415; 71045; 80053; 80307; 83735; 83880; 84439; 84443; 84484; 85025; 93005; 94640; 96361; 96374; J7613; J7620; J1940; J7030

== ENCOUNTER 2017-11-11 08:15 | Inpatient (IN) | payer MEDICAID ==
[~2017-11-11] VITALS: Ht 182.9 cm; Wt 96.8 kg
[~2017-11-11 08:15] MED LIST changes: +ALLO300T PO; +BUSP10TA PO; +DILT240C55 PO; +INDO25CA PO
[2017-11-11] MEDS ORDERED: SODIUM CHLORIDE FLUSH 10ML SYR IVF ONE (09:00)
[2017-11-11] MEDS ORDERED: morphine SULFATE 10 MG/ML, 1ML IVPush ONE (09:00)
[2017-11-11] MEDS ORDERED: ESMOLOL/NS PMX 250 ML IV PRN (09:00)
[2017-11-11 09:04] LABS: BASOPHILS # (AUTO) 0.03 x10^3/uL (0-0.1); BASOPHILS % (AUTO) 0 % (0-1); EOSINOPHILS # (AUTO) 0.16 x10^3/uL (0-0.4); EOSINOPHILS % (AUTO) 2 % (1-7); LYMPHOCYTES # (AUTO) 1.55 x10^3/uL (1-3.4); LYMPHOCYTES % (AUTO) 23 % (22-44); MD NO; MEAN CORPUSCULAR HEMOGLOBIN 30.2 pg (27.5-34.5); MEAN CORPUSCULAR HGB CONC 32.3 g/dL (33.2-36.2); MEAN CORPUSCULAR VOLUME 93.4 fL (81-97); MEAN PLATELET VOLUME 6.8 fL (7.4-10.4); MONOCYTES # (AUTO) 0.79 x10^3/uL (0.2-0.8); MONOCYTES % (AUTO) 12 % (2-9); NEUTROPHILS # (AUTO) 4.22 x10^3/uL (1.8-6.8); NEUTROPHILS % (AUTO) 63 % (42-75); PLATELET COUNT 209 x10^3/uL (130-400); RED BLOOD COUNT 4.35 x10^6/uL (4.38-5.82); RED CELL DISTRIBUTION WIDTH 15.3 % (9.4-14.8)
[2017-11-11] MEDS ORDERED: MORPHINE SULFATE 4 MG/ML, 1ML ONE (09:05)
[2017-11-11] MEDS ORDERED: morphine SULFATE 10 MG/ML, 1ML ONE (09:12)
[2017-11-11 09:16] LABS: ALANINE AMINOTRANSFERASE 41 U/L (12-78); ALBUMIN 3.2 g/dL (3.4-5.0); ANION GAP 9 mmol/L (5-15); CALCIUM 8.4 mg/dL (8.5-10.1); CHLORIDE 109 mmol/L (98-107); CREATININE 1.18 mg/dL (0.7-1.3)
[2017-11-11 09:20] LABS: ALKALINE PHOSPHATASE 63 U/L (45-117); BILIRUBIN,TOTAL 0.5 mg/dL (0.2-1.0); INTERNATIONAL NORMALIZED RATIO 1.03 (0.93-1.1); PROTHROMBIN TIME 10.6 Seconds (9.6-11.5); TOTAL PROTEIN 6.2 g/dL (6.4-8.2)
[2017-11-11] MEDS: LISINOPRIL 5 MG TABLET PO SCH (13:00)
[2017-11-11] MEDS ORDERED: ACETAMINOPHEN 325 MG TABLET PO PRN (13:00)
[2017-11-11] MEDS ORDERED: DILTIAZEM 5 MG/ML, 5ML IVPush PRN (13:00)
[2017-11-11] MEDS ORDERED: ONDANSETRON ODT 4 MG PO PRN (13:00)
[2017-11-11] MEDS ORDERED: VERAPAMIL 2.5 MG/ML, 4ML IVPush PRN (13:00)
[2017-11-11 13:29] VITALS: BP 118/78
[2017-11-11] MEDS: METOPROLOL TARTRATE 25 MG TABLET PO SCH ×2 (13:32→22:20)
[2017-11-11] MEDS: DILTIAZEM 60 MG TABLET PO SCH ×3 (13:32→19:49)
[2017-11-11] MEDS: NICOTINE 14MG/24 HR PATCH.TD24 TD SCH (13:43)
[2017-11-11 16:21] LABS: TROPONIN I 0.061 ng/mL (0.000-0.045)
[2017-11-11] MEDS: POTASSIUM CHLORIDE 20 MEQ TAB.ER.PRT PO SCH (16:38)
[2017-11-11] MEDS: FUROSEMIDE 40 MG/4 ML IV SCH (16:38)
[2017-11-11 17:09] LABS: MICROSCOPIC NOT IND
[2017-11-11 17:13] LABS: CULTURE INDICATED? NO
[2017-11-11 17:22] LABS: AMPHETAMINE SCREEN, URINE Positive (Negative); BARBITURATE SCREEN, URINE Negative (Negative); BENZODIAZEPINE SCREEN, URINE Negative (Negative); CANNABINOID SCREEN, URINE Negative (Negative); COCAINE SCREEN, URINE Negative (Negative); METHADONE SCREEN, URINE Negative (Negative); OPIATE SCREEN, URINE Positive (Negative)
[2017-11-11] MEDS ORDERED: LORazepam 1MG TABLET ONE (17:36)
[2017-11-11] MEDS ORDERED: LORazepam 1MG TABLET PO ONE (18:00)
[2017-11-11 19:43] VITALS: BP 104/74
[2017-11-11] MEDS: BUPROPION 100 MG TABLET PO SCH (19:48)
[2017-11-11] MEDS: APIXABAN 5 MG TABLET PO SCH (19:49)
[2017-11-11 22:18] VITALS: BP 101/70
[2017-11-11 22:35] LABS: TROPONIN I 0.052 ng/mL (0.000-0.045)
[2017-11-12 00:46] VITALS: BP 109/74
[2017-11-12] MEDS ORDERED: LORazepam 1MG TABLET ONE (02:20)
[2017-11-12] MEDS ORDERED: LORazepam 1MG TABLET PO ONE (02:30)
[2017-11-12 05:01] LABS: BASOPHILS # (AUTO) 0.03 x10^3/uL (0-0.1); BASOPHILS % (AUTO) 0 % (0-1); EOSINOPHILS # (AUTO) 0.19 x10^3/uL (0-0.4); EOSINOPHILS % (AUTO) 2 % (1-7); LYMPHOCYTES # (AUTO) 1.49 x10^3/uL (1-3.4); LYMPHOCYTES % (AUTO) 19 % (22-44); MD NO; MEAN CORPUSCULAR HEMOGLOBIN 30.8 pg (27.5-34.5); MEAN CORPUSCULAR HGB CONC 32.7 g/dL (33.2-36.2); MEAN PLATELET VOLUME 7.6 fL (7.4-10.4); MONOCYTES # (AUTO) 0.76 x10^3/uL (0.2-0.8); MONOCYTES % (AUTO) 10 % (2-9); NEUTROPHILS # (AUTO) 5.44 x10^3/uL (1.8-6.8); NEUTROPHILS % (AUTO) 69 % (42-75); PLATELET COUNT 195 x10^3/uL (130-400); RED BLOOD COUNT 4.42 x10^6/uL (4.38-5.82); RED CELL DISTRIBUTION WIDTH 15.3 % (9.4-14.8)
[2017-11-12 05:10] LABS: ALBUMIN 3.2 g/dL (3.4-5.0); ANION GAP 6 mmol/L (5-15); CALCIUM 8.5 mg/dL (8.5-10.1); CHLORIDE 108 mmol/L (98-107)
[2017-11-12 05:13] LABS: ALANINE AMINOTRANSFERASE 36 U/L (12-78); ALKALINE PHOSPHATASE 60 U/L (45-117); BILIRUBIN,TOTAL 0.7 mg/dL (0.2-1.0); CREATININE 1.18 mg/dL (0.7-1.3); TOTAL PROTEIN 6.1 g/dL (6.4-8.2)
[2017-11-12] MEDS: ASPIRIN 81 MG TABLET EC PO SCH (05:46)
[2017-11-12] MEDS: METOPROLOL TARTRATE 25 MG TABLET PO SCH (05:47)
[2017-11-12] MEDS: DILTIAZEM 60 MG TABLET PO SCH ×4 (05:47→21:09)
[2017-11-12 08:14] VITALS: BP 102/71
[2017-11-12] MEDS: APIXABAN 5 MG TABLET PO SCH ×2 (08:22→21:09)
[2017-11-12] MEDS: POTASSIUM CHLORIDE 20 MEQ TAB.ER.PRT PO SCH ×2 (08:22→16:36)
[2017-11-12] MEDS: FUROSEMIDE 40 MG/4 ML IV SCH ×2 (08:23→16:37)
[2017-11-12] MEDS: BUPROPION 100 MG TABLET PO SCH ×2 (08:23→21:09)
[2017-11-12] MEDS: LISINOPRIL 5 MG TABLET PO SCH ×2 (08:27→21:14)
[2017-11-12] MEDS: NICOTINE 14MG/24 HR PATCH.TD24 TD SCH (12:39)
[2017-11-12 14:42] VITALS: BP 97/66
[2017-11-12 19:35] VITALS: BP 100/62
[2017-11-12] MEDS ORDERED: LISINOPRIL 5 MG TABLET PO SCH (21:00)
[2017-11-12] MEDS: DOXYCYCLINE 100MG TABLET PO SCH (21:09)
[2017-11-13 02:07] VITALS: BP 112/66
[2017-11-13 04:55] LABS: ANION GAP 10 mmol/L (5-15); CALCIUM 8.8 mg/dL (8.5-10.1); CHLORIDE 102 mmol/L (98-107); CREATININE 1.29 mg/dL (0.7-1.3)
[2017-11-13] MEDS: ASPIRIN 81 MG TABLET EC PO SCH (06:02)
[2017-11-13] MEDS: DILTIAZEM 60 MG TABLET PO SCH ×2 (06:02→11:41)
[2017-11-13 06:03] VITALS: BP 100/64
[2017-11-13] MEDS: DOXYCYCLINE 100MG TABLET PO SCH ×2 (08:11→19:45)
[2017-11-13] MEDS: METOPROLOL SUCCINATE 25 MG TAB.ER.24H PO SCH (08:11)
[2017-11-13] MEDS: POTASSIUM CHLORIDE 20 MEQ TAB.ER.PRT PO SCH ×2 (08:11→17:02)
[2017-11-13] MEDS: BUPROPION 100 MG TABLET PO SCH ×2 (08:11→19:45)
[2017-11-13] MEDS: LISINOPRIL 5 MG TABLET PO SCH (08:13)
[2017-11-13] MEDS: FUROSEMIDE 40 MG/4 ML IV SCH ×2 (08:13→17:03)
[2017-11-13] MEDS: APIXABAN 5 MG TABLET PO SCH ×2 (08:13→19:45)
[2017-11-13 08:19] VITALS: BP 104/69
[2017-11-13] MEDS: NICOTINE 14MG/24 HR PATCH.TD24 TD SCH (11:41)
[2017-11-13 11:42] VITALS: BP 105/63
[2017-11-13 14:00] VITALS: BP 97/62
[2017-11-13] MEDS ORDERED: DILTIAZEM 60 MG TABLET PO SCH (16:00)
[2017-11-13 19:43] VITALS: BP 105/67
[2017-11-13] MEDS ORDERED: TEMAZEPAM 15 MG CAPSULE PO ONE (20:30)
[2017-11-14 04:31] VITALS: BP 106/72
[2017-11-14] MEDS: METOPROLOL SUCCINATE 25 MG TAB.ER.24H PO SCH (04:35)
[2017-11-14] MEDS: ASPIRIN 81 MG TABLET EC PO SCH (04:36)
[2017-11-14 05:35] LABS: ANION GAP 8 mmol/L (5-15); CALCIUM 9.2 mg/dL (8.5-10.1); CHLORIDE 101 mmol/L (98-107); CREATININE 1.26 mg/dL (0.7-1.3)
[2017-11-14 07:32] VITALS: BP 108/74
[2017-11-14] MEDS: NICOTINE 14MG/24 HR PATCH.TD24 TD SCH (08:38)
[2017-11-14] MEDS: APIXABAN 5 MG TABLET PO SCH ×2 (08:38→22:08)
[2017-11-14] MEDS: DOXYCYCLINE 100MG TABLET PO SCH ×2 (08:39→22:08)
[2017-11-14] MEDS: POTASSIUM CHLORIDE 20 MEQ TAB.ER.PRT PO SCH ×2 (08:39→17:27)
[2017-11-14] MEDS: LISINOPRIL 5 MG TABLET PO SCH (08:39)
[2017-11-14] MEDS: BUPROPION 100 MG TABLET PO SCH ×2 (08:39→22:08)
[2017-11-14] MEDS: FUROSEMIDE 40 MG/4 ML IV SCH ×2 (08:40→17:27)
[2017-11-14] MEDS: DILTIAZEM 240 MG CAP.ER.24H PO SCH (09:02)
[2017-11-14 13:06] VITALS: BP 105/73
[2017-11-14 13:24] VITALS: BP 130/82
[2017-11-14] MEDS: ALPRazolam 1MG TABLET PO PRN (16:07)
[2017-11-14 17:24] VITALS: BP 108/72
[2017-11-14 19:00] VITALS: BP 100/66
[2017-11-15 00:13] VITALS: BP 108/68
[2017-11-15] MEDS: ALPRazolam 1MG TABLET PO PRN (00:16)
[2017-11-15] MEDS: ASPIRIN 81 MG TABLET EC PO SCH (05:34)
[2017-11-15] MEDS ORDERED: METOPROLOL SUCCINATE 50 MG TAB.ER.24H PO SCH (06:00)
[2017-11-15 07:31] VITALS: BP 114/76
[2017-11-15] MEDS ORDERED: LISI5TAB7 PO (08:08)
[2017-11-15] MEDS ORDERED: DILT240C55 PO (08:08)
[2017-11-15] MEDS ORDERED: FURO20TA3 PO (08:08)
[2017-11-15] MEDS ORDERED: METO-93 PO (08:08)
[2017-11-15] MEDS ORDERED: ASPI-621 PO (08:08)
[2017-11-15] MEDS ORDERED: POTA20TA6 PO (08:08)
[2017-11-15] MEDS: LISINOPRIL 5 MG TABLET PO SCH (08:39)
[2017-11-15] MEDS: DOXYCYCLINE 100MG TABLET PO SCH (08:39)
[2017-11-15] MEDS: APIXABAN 5 MG TABLET PO SCH (08:44)
[2017-11-15] MEDS: BUPROPION 100 MG TABLET PO SCH (08:44)
[2017-11-15] MEDS ORDERED: FUROSEMIDE 20 MG TABLET PO SCH (09:00)
[2017-11-15] MEDS ORDERED: POTASSIUM CHLORIDE 10 MEQ TABLET.ER PO SCH (09:00)
[2017-11-15] MEDS: DILTIAZEM 240 MG CAP.ER.24H PO SCH (09:50)
[2017-11-15 12:04] VITALS: BP 97/60
== END 2017-11-15 12:28 | disposition home or self-care (01) | DRG 308 ==
LOC: ED 08:57 → EDIP 11:33 → 5SO 12:51
PROVIDERS: ADMIT Hospitalist; ATTEND Hospitalist
DX: I48.91 Unspecified atrial fibrillation (principal); I50.43 Acute on chronic combined systolic (congestive) and diastolic (congestive) heart failure; I24.8 Other forms of acute ischemic heart disease; D68.59 Other primary thrombophilia; I11.0 Hypertensive heart disease with heart failure; F15.10 Other stimulant abuse, uncomplicated; F17.210 Nicotine dependence, cigarettes, uncomplicated; Z59.0 Homelessness; Z79.01 Long term (current) use of anticoagulants; Z79.899 Other long term (current) drug therapy; Z86.711 Personal history of pulmonary embolism; Z86.718 Personal history of other venous thrombosis and embolism; Z86.73 Personal history of transient ischemic attack (TIA), and cerebral infarction without residual deficits; Z91.14 Patient's other noncompliance with medication regimen; Z91.19 Patient's noncompliance with other medical treatment and regimen
CPT/HCPCS: 36415; 71045; 80048; 80053; 80307; 81003; 83880; 84484; 85025; 85610; 87070; 87205; 93005; 93970; 96374; J1940; J2270; J7512

== ENCOUNTER 2017-11-28 00:26 | Inpatient (IN) | payer MEDICAID ==
[~2017-11-28] VITALS: Ht 182.9 cm; Wt 86.9 kg
[~2017-11-28 00:26] MED LIST changes: +ASPI-621 PO; +LISI5TAB7 PO; +METO-93 PO; +POTA20TA6 PO
[2017-11-28] MEDS ORDERED: METOPROLOL 1 MG/ML, 5ML ONE (00:58)
[2017-11-28] MEDS: METOPROLOL 1 MG/ML, 5ML IVPush PRN ×2 (01:10→01:15)
[2017-11-28 01:12] LABS: BASOPHILS # (AUTO) 0.03 x10^3/uL (0-0.1); BASOPHILS % (AUTO) 0 % (0-1); EOSINOPHILS # (AUTO) 0.13 x10^3/uL (0-0.4); EOSINOPHILS % (AUTO) 1 % (1-7); LYMPHOCYTES % (AUTO) 20 % (22-44); MD NO; MEAN CORPUSCULAR HEMOGLOBIN 30.5 pg (27.5-34.5); MEAN CORPUSCULAR HGB CONC 32.7 g/dL (33.2-36.2); MEAN CORPUSCULAR VOLUME 93.3 fL (81-97); MONOCYTES # (AUTO) 0.72 x10^3/uL (0.2-0.8); MONOCYTES % (AUTO) 7 % (2-9); NEUTROPHILS # (AUTO) 7.76 x10^3/uL (1.8-6.8); NEUTROPHILS % (AUTO) 72 % (42-75); PLATELET COUNT 200 x10^3/uL (130-400); RED CELL DISTRIBUTION WIDTH 15.5 % (9.4-14.8)
[2017-11-28 01:25] LABS: ALBUMIN 3.4 g/dL (3.4-5.0); ANION GAP 6 mmol/L (5-15); CHLORIDE 114 mmol/L (98-107); CREATININE 1.36 mg/dL (0.7-1.3)
[2017-11-28 01:28] LABS: TROPONIN I 0.073 ng/mL (0.000-0.045)
[2017-11-28] MEDS ORDERED: ASPIRIN 81 MG TABLET CHEW ONE (01:35)
[2017-11-28] MEDS ORDERED: MORPHINE SULFATE 4 MG/ML, 1ML ONE (01:51)
[2017-11-28] MEDS ORDERED: ONDANSETRON 2MG/ML, 2ML IVPush PRN ×2 (02:00→02:30)
[2017-11-28] MEDS ORDERED: ASPIRIN 81 MG TABLET CHEW PO ONE (02:00)
[2017-11-28] MEDS ORDERED: MORPHINE SULFATE 4 MG/ML, 1ML IVPush PRN (02:00)
[2017-11-28] MEDS ORDERED: ENALAPRILAT 1.25 MG/ML, 2ML IVPush PRN (02:30)
[2017-11-28] MEDS ORDERED: BISACODYL 10 MG SUPP PR PRN (02:30)
[2017-11-28] MEDS ORDERED: POLYETHYLENE GLYCOL 17 GM PACKET PO PRN (02:30)
[2017-11-28] MEDS ORDERED: morphine SULFATE 10 MG/ML, 1ML IVPush PRN (02:30)
[2017-11-28] MEDS ORDERED: OXYcodone IR 5MG TABLET PO PRN (02:30)
[2017-11-28] MEDS ORDERED: hydrALAzine 20 MG/ML, 1ML IVPush PRN (02:30)
[2017-11-28] MEDS ORDERED: DOCUSATE 100 MG CAPSULE PO PRN (02:30)
[2017-11-28] MEDS ORDERED: LABETALOL 5MG/ML, 20ML IVPush PRN (02:30)
[2017-11-28] MEDS ORDERED: ACETAMINOPHEN 325 MG TABLET PO PRN (02:30)
[2017-11-28 02:58] VITALS: BP 130/99
[2017-11-28] MEDS: METOPROLOL SUCCINATE 50 MG TAB.ER.24H PO SCH (06:24)
[2017-11-28] MEDS: ASPIRIN 81 MG TABLET EC PO SCH (06:25)
[2017-11-28 06:44] VITALS: BP 124/86
[2017-11-28 07:32] LABS: TROPONIN I 0.063 ng/mL (0.000-0.045)
[2017-11-28] MEDS ORDERED: AMOXICILLIN/CLAV 875-125MG TABLET PO SCH (09:00)
[2017-11-28] MEDS: FUROSEMIDE 20 MG TABLET PO SCH (10:23)
[2017-11-28] MEDS: APIXABAN 5 MG TABLET PO SCH ×2 (10:23→20:48)
[2017-11-28] MEDS: LISINOPRIL 5 MG TABLET PO SCH (10:23)
[2017-11-28] MEDS: POTASSIUM CHLORIDE 20 MEQ TAB.ER.PRT PO SCH (10:24)
[2017-11-28] MEDS: DILTIAZEM 240 MG CAP.ER.24H PO SCH (10:28)
[2017-11-28 12:35] VITALS: BP 125/84
[2017-11-28 13:07] LABS: TROPONIN I 0.056 ng/mL (0.000-0.045)
[2017-11-28 14:52] LABS: AMPHETAMINE SCREEN, URINE Positive (Negative); BARBITURATE SCREEN, URINE Negative (Negative); BENZODIAZEPINE SCREEN, URINE Negative (Negative); CANNABINOID SCREEN, URINE Negative (Negative); COCAINE SCREEN, URINE Negative (Negative); METHADONE SCREEN, URINE Negative (Negative); OPIATE SCREEN, URINE Negative (Negative)
[2017-11-28 18:40] VITALS: BP 127/84
[2017-11-29 01:21] VITALS: BP 95/59
[2017-11-29] MEDS: ASPIRIN 81 MG TABLET EC PO SCH (05:45)
[2017-11-29] MEDS: METOPROLOL SUCCINATE 50 MG TAB.ER.24H PO SCH (05:45)
[2017-11-29 05:46] VITALS: BP 116/84
[2017-11-29 05:49] LABS: BASOPHILS # (AUTO) 0.03 x10^3/uL (0-0.1); BASOPHILS % (AUTO) 0 % (0-1); EOSINOPHILS # (AUTO) 0.18 x10^3/uL (0-0.4); EOSINOPHILS % (AUTO) 2 % (1-7); LYMPHOCYTES # (AUTO) 1.45 x10^3/uL (1-3.4); LYMPHOCYTES % (AUTO) 14 % (22-44); MD NO; MEAN CORPUSCULAR HEMOGLOBIN 30.6 pg (27.5-34.5); MEAN CORPUSCULAR HGB CONC 33.1 g/dL (33.2-36.2); MEAN CORPUSCULAR VOLUME 92.7 fL (81-97); MEAN PLATELET VOLUME 7.9 fL (7.4-10.4); MONOCYTES # (AUTO) 0.71 x10^3/uL (0.2-0.8); MONOCYTES % (AUTO) 7 % (2-9); NEUTROPHILS # (AUTO) 8.17 x10^3/uL (1.8-6.8); NEUTROPHILS % (AUTO) 78 % (42-75); PLATELET COUNT 170 x10^3/uL (130-400); RED BLOOD COUNT 4.46 x10^6/uL (4.38-5.82); RED CELL DISTRIBUTION WIDTH 14.7 % (9.4-14.8)
[2017-11-29 05:59] LABS: CHLORIDE 112 mmol/L (98-107)
[2017-11-29 06:19] LABS: ALANINE AMINOTRANSFERASE 46 U/L (12-78); ALBUMIN 3.1 g/dL (3.4-5.0); ALKALINE PHOSPHATASE 54 U/L (45-117); ANION GAP 9 mmol/L (5-15); BILIRUBIN,TOTAL 0.8 mg/dL (0.2-1.0); CALCIUM 8.6 mg/dL (8.5-10.1); TOTAL PROTEIN 5.6 g/dL (6.4-8.2)
[2017-11-29 06:50] VITALS: BP 118/77
[2017-11-29] MEDS: POTASSIUM CHLORIDE 20 MEQ TAB.ER.PRT PO SCH (08:42)
[2017-11-29] MEDS: FUROSEMIDE 20 MG TABLET PO SCH (08:43)
[2017-11-29] MEDS: LISINOPRIL 5 MG TABLET PO SCH (08:43)
[2017-11-29] MEDS: DILTIAZEM 240 MG CAP.ER.24H PO SCH (08:43)
[2017-11-29] MEDS: APIXABAN 5 MG TABLET PO SCH (08:44)
== END 2017-11-29 13:02 | disposition home or self-care (01) | DRG 280 ==
LOC: ED 00:53 → EDIP 02:06 → 4WST 03:00
PROVIDERS: ADMIT Internal Medicine; ATTEND Internal Medicine
DX: I21.4 Non-ST elevation (NSTEMI) myocardial infarction (principal); I50.43 Acute on chronic combined systolic (congestive) and diastolic (congestive) heart failure; D68.69 Other thrombophilia; J44.1 Chronic obstructive pulmonary disease with (acute) exacerbation; I48.91 Unspecified atrial fibrillation; I24.8 Other forms of acute ischemic heart disease; I48.2 Chronic atrial fibrillation; I11.0 Hypertensive heart disease with heart failure; E03.9 Hypothyroidism, unspecified; M10.9 Gout, unspecified; F17.210 Nicotine dependence, cigarettes, uncomplicated; I25.10 Atherosclerotic heart disease of native coronary artery without angina pectoris; I34.0 Nonrheumatic mitral (valve) insufficiency; E55.9 Vitamin D deficiency, unspecified; F15.10 Other stimulant abuse, uncomplicated; Z91.14 Patient's other noncompliance with medication regimen; Z71.6 Tobacco abuse counseling; I25.2 Old myocardial infarction; Z59.0 Homelessness; Z79.82 Long term (current) use of aspirin; Z79.899 Other long term (current) drug therapy; Z86.711 Personal history of pulmonary embolism; Z86.718 Personal history of other venous thrombosis and embolism; Z86.73 Personal history of transient ischemic attack (TIA), and cerebral infarction without residual deficits; Z71.51 Drug abuse counseling and surveillance of drug abuser
CPT/HCPCS: 36415; 80048; 80053; 80307; 82040; 83735; 83880; 84484; 85025; 93005; 96374; 96375

== ENCOUNTER 2018-01-14 07:05 | Inpatient (IN) | payer MEDICAID ==
[~2018-01-14] VITALS: Ht 182.9 cm; Wt 94.0 kg
[2018-01-14] MEDS ORDERED: LEVO25TA2 PO (07:27)
[2018-01-14] MEDS ORDERED: ZOLP5TAB6 PO (07:27)
[2018-01-14] MEDS ORDERED: ALLO300T PO (07:27)
[2018-01-14] MEDS ORDERED: TRAZ100T15 PO (07:27)
[2018-01-14] MEDS ORDERED: SODIUM CHLORIDE FLUSH 10ML SYR IVF ONE (07:30)
[2018-01-14] MEDS ORDERED: DILTIAZEM 5 MG/ML, 5ML IV ONE (07:30)
[2018-01-14 08:02] LABS: BASOPHILS # (AUTO) 0.05 x10^3/uL (0-0.1); BASOPHILS % (AUTO) 1 % (0-1); EOSINOPHILS # (AUTO) 0.12 x10^3/uL (0-0.4); EOSINOPHILS % (AUTO) 2 % (1-7); LYMPHOCYTES # (AUTO) 1.42 x10^3/uL (1-3.4); LYMPHOCYTES % (AUTO) 18 % (22-44); MD NO; MEAN CORPUSCULAR HEMOGLOBIN 30.6 pg (27.5-34.5); MEAN CORPUSCULAR HGB CONC 32.9 g/dL (33.2-36.2); MEAN CORPUSCULAR VOLUME 93.1 fL (81-97); MEAN PLATELET VOLUME 7.5 fL (7.4-10.4); MONOCYTES # (AUTO) 0.69 x10^3/uL (0.2-0.8); MONOCYTES % (AUTO) 9 % (2-9); NEUTROPHILS # (AUTO) 5.73 x10^3/uL (1.8-6.8); NEUTROPHILS % (AUTO) 72 % (42-75); PLATELET COUNT 219 x10^3/uL (130-400); RED BLOOD COUNT 4.45 x10^6/uL (4.38-5.82); RED CELL DISTRIBUTION WIDTH 15.4 % (9.4-14.8)
[2018-01-14] MEDS ORDERED: METOPROLOL TARTRATE 25 MG TABLET ONE (08:05)
[2018-01-14 08:16] LABS: ALBUMIN 3.6 g/dL (3.4-5.0); ANION GAP 6 mmol/L (5-15); CALCIUM 8.7 mg/dL (8.5-10.1); CHLORIDE 113 mmol/L (98-107)
[2018-01-14 08:22] LABS: CREATININE 1.31 mg/dL (0.7-1.3); TROPONIN I 0.032 ng/mL (0.000-0.045)
[2018-01-14] MEDS ORDERED: METOPROLOL TARTRATE 50 MG TABLET PO ONE (08:30)
[2018-01-14] MEDS ORDERED: FUROSEMIDE 40 MG/4 ML ONE (09:28)
[2018-01-14] MEDS ORDERED: FUROSEMIDE 40 MG/4 ML IVPush ONE (09:30)
[2018-01-14] MEDS ORDERED: POTASSIUM CHLORIDE 20 MEQ TAB.ER.PRT PO SCH (10:30)
[2018-01-14] MEDS ORDERED: HYDROcodone/APAP 5/325 TABLET PO PRN (11:00)
[2018-01-14] MEDS ORDERED: hydrALAzine 20 MG/ML, 1ML IVPush PRN (11:00)
[2018-01-14] MEDS ORDERED: morphine SULFATE 10 MG/ML, 1ML IVPush PRN (11:00)
[2018-01-14] MEDS ORDERED: ACETAMINOPHEN 325 MG TABLET PO PRN (11:00)
[2018-01-14] MEDS ORDERED: ONDANSETRON 2MG/ML, 2ML IVPush PRN (11:00)
[2018-01-14 11:31] LABS: FREE T4 (FREE THYROXINE) 1.04 ng/dL (0.76-1.46); THYROID STIMULATING HORMONE 2.19 mIU/L (0.358-3.740)
[2018-01-14] MEDS: DILTIAZEM 90 MG TABLET PO SCH ×3 (11:41→21:32)
[2018-01-14] MEDS: ALLOPURINOL 300 MG TABLET PO SCH (11:41)
[2018-01-14] MEDS: APIXABAN 5 MG TABLET PO SCH ×2 (11:42→21:32)
[2018-01-14] MEDS: LISINOPRIL 5 MG TABLET PO SCH (11:42)
[2018-01-14] MEDS: NICOTINE 21 MG/24 HR PATCH.TD24 TD SCH (11:42)
[2018-01-14 11:46] LABS: MICROSCOPIC NOT IND
[2018-01-14 11:54] LABS: CULTURE INDICATED? NO
[2018-01-14 11:58] LABS: AMPHETAMINE SCREEN, URINE Negative (Negative); BARBITURATE SCREEN, URINE Negative (Negative); BENZODIAZEPINE SCREEN, URINE Negative (Negative); CANNABINOID SCREEN, URINE Negative (Negative); COCAINE SCREEN, URINE Negative (Negative); METHADONE SCREEN, URINE Negative (Negative); OPIATE SCREEN, URINE Negative (Negative)
[2018-01-14] MEDS ORDERED: ALBUTEROL/IPRATROPIUM 2.5MG/0.5MG, 3 ML ONE (12:14)
[2018-01-14] MEDS ORDERED: MELA5TAB19 PO (15:53)
[2018-01-14] MEDS ORDERED: TRAZ150T62 PO (15:53)
[2018-01-14] MEDS ORDERED: SERT50TA PO (15:53)
[2018-01-14] MEDS ORDERED: ARIP20TA5 PO (15:53)
[2018-01-14 16:43] VITALS: BP 105/60
[2018-01-14] MEDS ORDERED: FUROSEMIDE 20 MG/2 ML IV SCH (17:00)
[2018-01-14] MEDS ORDERED: ALBUTEROL/IPRATROPIUM 2.5MG/0.5MG, 3 ML NPPB PRN (18:30)
[2018-01-14 20:38] VITALS: BP 115/83
[2018-01-14] MEDS ORDERED: DILTIAZEM 30 MG TABLET ONE (21:25)
[2018-01-14] MEDS: TRAZODONE 100MG TABLET PO SCH (21:32)
[2018-01-15] VITALS (8 sets, daily range): BP systolic 88–114; BP diastolic 57–79
[2018-01-15] MEDS ORDERED: DILTIAZEM 30 MG TABLET ONE ×2 (05:05→11:53)
[2018-01-15] MEDS: DILTIAZEM 90 MG TABLET PO SCH ×4 (05:14→20:32)
[2018-01-15] MEDS: LEVOTHYROXINE 25 MCG TABLET PO SCH (05:14)
[2018-01-15] MEDS: ASPIRIN 81 MG TABLET EC PO SCH (05:14)
[2018-01-15] MEDS: METOPROLOL SUCCINATE 50 MG TAB.ER.24H PO SCH (05:15)
[2018-01-15 05:38] LABS: BASOPHILS # (AUTO) 0.02 x10^3/uL (0-0.1); BASOPHILS % (AUTO) 0 % (0-1); EOSINOPHILS # (AUTO) 0.15 x10^3/uL (0-0.4); EOSINOPHILS % (AUTO) 2 % (1-7); LYMPHOCYTES # (AUTO) 1.66 x10^3/uL (1-3.4); LYMPHOCYTES % (AUTO) 22 % (22-44); MD NO; MEAN CORPUSCULAR HEMOGLOBIN 30.9 pg (27.5-34.5); MEAN CORPUSCULAR HGB CONC 33.2 g/dL (33.2-36.2); MEAN CORPUSCULAR VOLUME 93.2 fL (81-97); MEAN PLATELET VOLUME 7.6 fL (7.4-10.4); MONOCYTES % (AUTO) 10 % (2-9); NEUTROPHILS # (AUTO) 5.11 x10^3/uL (1.8-6.8); NEUTROPHILS % (AUTO) 66 % (42-75); PLATELET COUNT 210 x10^3/uL (130-400); RED BLOOD COUNT 4.66 x10^6/uL (4.38-5.82); RED CELL DISTRIBUTION WIDTH 15.5 % (9.4-14.8)
[2018-01-15 05:50] LABS: CHLORIDE 107 mmol/L (98-107)
[2018-01-15 06:30] LABS: ALANINE AMINOTRANSFERASE 25 U/L (12-78); ALBUMIN 3.4 g/dL (3.4-5.0); ALKALINE PHOSPHATASE 52 U/L (45-117); ANION GAP 10 mmol/L (5-15); BILIRUBIN,TOTAL 0.4 mg/dL (0.2-1.0); CREATININE 1.22 mg/dL (0.7-1.3); TOTAL PROTEIN 6.2 g/dL (6.4-8.2)
[2018-01-15] MEDS: ALLOPURINOL 300 MG TABLET PO SCH (09:27)
[2018-01-15] MEDS: APIXABAN 5 MG TABLET PO SCH ×2 (09:27→20:31)
[2018-01-15] MEDS: LISINOPRIL 5 MG TABLET PO SCH (09:27)
[2018-01-15] MEDS: POTASSIUM CHLORIDE 20 MEQ TAB.ER.PRT PO SCH (09:27)
[2018-01-15] MEDS: FUROSEMIDE 40 MG TABLET PO SCH (09:27)
[2018-01-15] MEDS: NICOTINE 21 MG/24 HR PATCH.TD24 TD SCH (12:05)
[2018-01-15] MEDS: TRAZODONE 100MG TABLET PO SCH (20:32)
[2018-01-15] MEDS ORDERED: TRAZODONE 150MG TABLET PO SCH (21:00)
[2018-01-15] MEDS ORDERED: MAGNESIUM SULFATE PMX 2GM/50ML 50 ML IV ONE (21:30)
[2018-01-16 00:28] VITALS: BP 106/58
[2018-01-16] MEDS: LEVOTHYROXINE 25 MCG TABLET PO SCH (05:21)
[2018-01-16] MEDS: ASPIRIN 81 MG TABLET EC PO SCH (05:21)
[2018-01-16] MEDS: DILTIAZEM 90 MG TABLET PO SCH (05:34)
[2018-01-16 05:43] LABS: CHLORIDE 105 mmol/L (98-107)
[2018-01-16 05:49] LABS: ANION GAP 7 mmol/L (5-15); CALCIUM 9.4 mg/dL (8.5-10.1); CHOL/HDL RATIO 3.6; CHOLESTEROL, TOTAL 140 mg/dL (140-239); CREATININE 1.22 mg/dL (0.7-1.3); HDL CHOL % 28 % (26-37); HDL CHOLESTEROL (DIRECT) 39 mg/dL (40-60); TRIGLYCERIDES 141 mg/dL (50-200); VLDL CHOLESTEROL 28 mg/dL (0-25)
[2018-01-16 05:50] LABS: LDL CHOLESTEROL,CALCULATED 73 mg/dL (54-169); LDL/HDL RATIO 1.9 (0.5-3.0)
[2018-01-16] MEDS: METOPROLOL SUCCINATE 50 MG TAB.ER.24H PO SCH (06:58)
[2018-01-16 07:00] VITALS: BP 119/62
[2018-01-16] MEDS ORDERED: ARIPIPRAZOLE 20 MG PO SCH (09:00)
[2018-01-16] MEDS ORDERED: SERTRALINE 50MG TABLET PO SCH (09:00)
[2018-01-16] MEDS: LISINOPRIL 5 MG TABLET PO SCH (09:01)
[2018-01-16] MEDS: POTASSIUM CHLORIDE 20 MEQ TAB.ER.PRT PO SCH (09:02)
[2018-01-16] MEDS: APIXABAN 5 MG TABLET PO SCH (09:03)
[2018-01-16] MEDS: ALLOPURINOL 300 MG TABLET PO SCH (09:03)
[2018-01-16] MEDS: FUROSEMIDE 40 MG TABLET PO SCH (09:03)
[2018-01-16] MEDS ORDERED: DIGOXIN 0.125 MG TABLET PO SCH (09:30)
[2018-01-16] MEDS ORDERED: DILT60TA27 PO (20:30)
[2018-01-16] MEDS ORDERED: SIMV5TAB5 PO (20:30)
[2018-01-16] MEDS ORDERED: DIGO125T PO (20:30)
[2018-01-16] MEDS ORDERED: SIMVASTATIN 10 MG TABLET PO SCH (21:00)
== END 2018-01-16 10:07 | disposition left against medical advice (07) | DRG 291 ==
LOC: ED 09:00 → EDIP 09:14 → 5SO 11:05
PROVIDERS: ADMIT Hospitalist; ATTEND Internal Medicine
DX: I13.0 Hypertensive heart and chronic kidney disease with heart failure and stage 1 through stage 4 chronic kidney disease, or unspecified chronic kidney disease (principal); I50.21 Acute systolic (congestive) heart failure; N17.9 Acute kidney failure, unspecified; D68.69 Other thrombophilia; Z53.21 Procedure and treatment not carried out due to patient leaving prior to being seen by health care provider; E03.9 Hypothyroidism, unspecified; I48.2 Chronic atrial fibrillation; M10.9 Gout, unspecified; N18.9 Chronic kidney disease, unspecified; E11.22 Type 2 diabetes mellitus with diabetic chronic kidney disease; E78.5 Hyperlipidemia, unspecified; F17.210 Nicotine dependence, cigarettes, uncomplicated; J44.9 Chronic obstructive pulmonary disease, unspecified; Z79.01 Long term (current) use of anticoagulants; Z86.711 Personal history of pulmonary embolism; Z86.718 Personal history of other venous thrombosis and embolism; Z86.73 Personal history of transient ischemic attack (TIA), and cerebral infarction without residual deficits; Z79.899 Other long term (current) drug therapy
CPT/HCPCS: 36415; 71045; 80048; 80053; 80061; 80307; 81003; 82040; 83735; 83880; 84100; 84439; 84443; 84484; 85025; 93005; 94640; 96374; J1940; J3475

== ENCOUNTER 2018-01-16 19:43 | Emergency (ER) | payer MEDICAID ==
[~2018-01-16] VITALS: Ht 182.9 cm; Wt 99.0 kg
[~2018-01-16 19:43] MED LIST changes: +ARIP20TA5 PO; +MELA5TAB19 PO; +SERT50TA PO; +TRAZ100T15 PO; +TRAZ150T62 PO; +ZOLP5TAB6 PO
[2018-01-16] MEDS ORDERED: DIGO125T PO (20:30)
[2018-01-16] MEDS ORDERED: SIMV5TAB5 PO (20:30)
[2018-01-16] MEDS ORDERED: DILT60TA27 PO (20:30)
[2018-01-16] MEDS ORDERED: DIGOXIN 0.25 MG/ML, 2ML IVPush ONE (21:00)
[2018-01-16] MEDS ORDERED: DIGOXIN 0.25 MG TABLET PO ONE (21:30)
[2018-01-16 21:53] VITALS: BP 90/56
== END 2018-01-16 21:57 | disposition home or self-care (01) ==
LOC: ED 20:29
DX: J43.9 Emphysema, unspecified (principal); I48.2 Chronic atrial fibrillation; I11.0 Hypertensive heart disease with heart failure; I50.9 Heart failure, unspecified; E11.9 Type 2 diabetes mellitus without complications; I48.91 Unspecified atrial fibrillation; E03.9 Hypothyroidism, unspecified; Z86.718 Personal history of other venous thrombosis and embolism; Z86.73 Personal history of transient ischemic attack (TIA), and cerebral infarction without residual deficits; F17.200 Nicotine dependence, unspecified, uncomplicated
CPT/HCPCS: 93005; 99283

== ENCOUNTER 2019-07-13 11:57 | Inpatient (IN) | payer MEDICAID, MEDICARE ==
[~2019-07-13] VITALS: Ht 182.9 cm; Wt 114.6 kg
[~2019-07-13 11:57] MED LIST changes: -ASPI-621 PO; +ASPI81TA45 PO; -DILT180C PO; +DILT180C76 PO; +DILT60TA27 PO; -INDO25CA PO; +INDO25CA22 PO; +MELA5TAB14 PO; -MELA5TAB19 PO; +SIMV5TAB14 PO; +TRAZ-137 PO; -TRAZ100T15 PO
--- NOTE | 2019-07-13 12:10 | NUR ---
TASK RN: ELFEGO FLORES FOR C/O SOB STARTED AT 0600 TODAY. PT WAS DC'D FROM [facility] YESTERDAY FOR SAME SX. WAS THERE FOR 2 DAYS. HX COPD. PT NOTED TO BE 86-87% RA. PLACED ON 2L NC NOW SATING 95%. PT RESTING ON GURNEY. NADN. MONITORS APPLIED.
[2019-07-13] MEDS ORDERED: methylPREDNISolone SOD SUCC 125 MG/2 ML ONE (12:16)
--- NOTE | 2019-07-13 12:20 | NUR ---
requested records from [facility]. rt called for treatment.
[2019-07-13] MEDS ORDERED: SODIUM CHLORIDE FLUSH 10ML SYR IVF ONE ×2 (12:30)
[2019-07-13] MEDS ORDERED: methylPREDNISolone SOD SUCC 125 MG/2 ML IV ONE (12:30)
[2019-07-13 12:34] LABS: BASOPHILS # (AUTO) 0.02 x10^3/uL (0-0.1); BASOPHILS % (AUTO) 0 % (0-1); EOSINOPHILS # (AUTO) 0.04 x10^3/uL (0-0.4); EOSINOPHILS % (AUTO) 1 % (1-7); LYMPHOCYTES # (AUTO) 1.83 x10^3/uL (1-3.4); LYMPHOCYTES % (AUTO) 20 % (22-44); MD NO; MEAN CORPUSCULAR HEMOGLOBIN 30.7 pg (27.5-34.5); MEAN CORPUSCULAR HGB CONC 33.2 g/dL (33.2-36.2); MEAN CORPUSCULAR VOLUME 92.7 fL (81-97); MEAN PLATELET VOLUME 8.6 fL (7.4-10.4); MONOCYTES # (AUTO) 0.61 x10^3/uL (0.2-0.8); MONOCYTES % (AUTO) 7 % (2-9); NEUTROPHILS # (AUTO) 6.52 x10^3/uL (1.8-6.8); NEUTROPHILS % (AUTO) 72 % (42-75); PLATELET COUNT 152 x10^3/uL (130-400)
--- NOTE | 2019-07-13 12:36 | NUR ---
TASK RN: REPORT GIVEN TO LEIGH CRAVEN.
[2019-07-13] MEDS ORDERED: ALBUTEROL/IPRATROPIUM 2.5MG/0.5MG, 3 ML ONE (12:40)
[2019-07-13] MEDS: ALBUTEROL/IPRATROPIUM 2.5MG/0.5MG, 3 ML NPPB SCH ×2 (12:44→20:32)
[2019-07-13 12:46] LABS: ALANINE AMINOTRANSFERASE 41 U/L (12-78); ALBUMIN 3.5 g/dL (3.4-5.0); ANION GAP 6 mmol/L (5-15); CHLORIDE 108 mmol/L (98-107); CREATININE 1.06 mg/dL (0.7-1.3); INTERNATIONAL NORMALIZED RATIO 1.02 (0.93-1.1); PROTHROMBIN TIME 10.7 Seconds (9.6-11.5)
[2019-07-13 12:50] LABS: ALKALINE PHOSPHATASE 70 U/L (45-117); BILIRUBIN,TOTAL 0.4 mg/dL (0.2-1.0); TOTAL PROTEIN 6.3 g/dL (6.4-8.2); TROPONIN I < 0.015 ng/mL (0.000-0.045)
--- NOTE | 2019-07-13 12:58 | NUR ---
PT RESTING ON GURBENJAMIN, VSS, NAD NOTED AT THIS TIME
--- NOTE | 2019-07-13 13:14 | NUR ---
PT TO IMAGING
--- NOTE | 2019-07-13 13:23 | NUR ---
2nd request to [facility] for records
--- NOTE | 2019-07-13 14:20 | NUR ---
ADMITTING MD IN TO EVAL PT. VSS AT THIS TIME, AWAITING BED PLACEMENT
[2019-07-13] MEDS ORDERED: FLUT1DIS3 INH (14:24)
[2019-07-13] MEDS ORDERED: DIVA250T PO (14:24)
[2019-07-13] MEDS ORDERED: HYDR-826 PO (14:24)
--- NOTE | 2019-07-13 14:29 | NUR ---
REPORT TO RECIEVING RN
[2019-07-13] MEDS ORDERED: ACETAMINOPHEN 325 MG TABLET PO PRN (14:30)
[2019-07-13] MEDS ORDERED: morphine SULFATE 10 MG/ML, 1ML IVPush PRN (14:30)
[2019-07-13] MEDS ORDERED: ONDANSETRON 2MG/ML, 2ML IVPush PRN (14:30)
[2019-07-13] MEDS ORDERED: ONDANSETRON ODT 4 MG PO PRN (14:30)
[2019-07-13] MEDS ORDERED: hydrALAzine 20 MG/ML, 1ML IVPush PRN (14:30)
[2019-07-13] MEDS ORDERED: SODIUM CHLORIDE FLUSH 10ML SYR IVF PRN (14:30)
[2019-07-13] MEDS: NICOTINE 14MG/24 HR PATCH.TD24 TD SCH (15:15)
[2019-07-13 15:17] VITALS: BP 116/88
[2019-07-13] MEDS ORDERED: OMNIPAQUE 350 MG/ML, 100ML BOTTLE ONE (15:18)
[2019-07-13] MEDS ORDERED: HEPARIN 5,000 UNITS/ML, 1ML IV ONE (16:00)
[2019-07-13] MEDS ORDERED: HEPARIN 5,000 UNITS/ML, 1ML IV PRN (16:00)
[2019-07-13] MEDS: CARVEDILOL 3.125 MG TABLET PO SCH (17:06)
[2019-07-13 18:31] VITALS: BP 97/61
[2019-07-13] MEDS: methylPREDNISolone SOD SUCC 125 MG/2 ML IVPush SCH (18:36)
[2019-07-13] MEDS: BUDESONIDE 0.5 MG/2 ML INHA INH SCH (20:33)
[2019-07-13] MEDS ORDERED: APIXABAN 5 MG TABLET PO SCH (21:00)
[2019-07-13] MEDS: ATORVASTATIN 20 MG TABLET PO SCH (22:17)
[2019-07-13] MEDS: DIVALPROEX 250 MG TABLET.DR PO SCH (22:17)
[2019-07-13] MEDS: HEPARIN 25,000 UNITS/500ML PMX 500 ML IV PRN (22:52)
[2019-07-14 00:30] VITALS: BP 92/60
[2019-07-14] MEDS: ALBUTEROL/IPRATROPIUM 2.5MG/0.5MG, 3 ML NPPB SCH ×4 (02:29→21:11)
[2019-07-14] MEDS: methylPREDNISolone SOD SUCC 125 MG/2 ML IVPush SCH ×2 (03:14→11:31)
[2019-07-14 05:13] LABS: ANION GAP 9 mmol/L (5-15); CALCIUM 8.8 mg/dL (8.5-10.1); CHLORIDE 103 mmol/L (98-107); CREATININE 1.39 mg/dL (0.7-1.3)
[2019-07-14 05:14] LABS: BASOPHILS # (AUTO) 0.01 x10^3/uL (0-0.1); BASOPHILS % (AUTO) 0 % (0-1); EOSINOPHILS % (AUTO) 0 % (1-7); LYMPHOCYTES # (AUTO) 0.85 x10^3/uL (1-3.4); LYMPHOCYTES % (AUTO) 8 % (22-44); MD NO; MEAN CORPUSCULAR HEMOGLOBIN 30.9 pg (27.5-34.5); MEAN CORPUSCULAR HGB CONC 32.6 g/dL (33.2-36.2); MEAN CORPUSCULAR VOLUME 94.8 fL (81-97); MEAN PLATELET VOLUME 8.9 fL (7.4-10.4); MONOCYTES # (AUTO) 0.06 x10^3/uL (0.2-0.8); MONOCYTES % (AUTO) 1 % (2-9); NEUTROPHILS # (AUTO) 9.84 x10^3/uL (1.8-6.8); NEUTROPHILS % (AUTO) 92 % (42-75); PLATELET COUNT 168 x10^3/uL (130-400); RED BLOOD COUNT 4.54 x10^6/uL (4.38-5.82); RED CELL DISTRIBUTION WIDTH 14.2 % (9.4-14.8)
[2019-07-14 05:46] VITALS: BP 116/80
[2019-07-14] MEDS: CARVEDILOL 3.125 MG TABLET PO SCH ×2 (05:47→17:25)
[2019-07-14 08:45] VITALS: BP 112/76
[2019-07-14] MEDS: BUDESONIDE 0.5 MG/2 ML INHA INH SCH ×2 (09:00→21:11)
[2019-07-14 10:05] VITALS: BP 114/78
[2019-07-14] MEDS: DIVALPROEX 250 MG TABLET.DR PO SCH ×2 (10:08→19:54)
[2019-07-14] MEDS: SERTRALINE 50MG TABLET PO SCH (10:08)
[2019-07-14] MEDS: ALLOPURINOL 100 MG TABLET PO SCH (10:08)
[2019-07-14] MEDS: ARIPIPRAZOLE 10 MG TABLET PO SCH (10:08)
[2019-07-14 17:00] VITALS: BP 118/73
[2019-07-14] MEDS: NICOTINE 14MG/24 HR PATCH.TD24 TD SCH (17:25)
[2019-07-14 19:14] LABS: AMPHETAMINE SCREEN, URINE Negative (Negative); BARBITURATE SCREEN, URINE Negative (Negative); BENZODIAZEPINE SCREEN, URINE Negative (Negative); CANNABINOID SCREEN, URINE Negative (Negative); COCAINE SCREEN, URINE Negative (Negative); METHADONE SCREEN, URINE Negative (Negative); OPIATE SCREEN, URINE Negative (Negative)
[2019-07-14] MEDS: ATORVASTATIN 20 MG TABLET PO SCH (19:54)
[2019-07-14] MEDS ORDERED: LORazepam 0.5MG TABLET PO ONE (20:00)
[2019-07-14 20:12] VITALS: BP 111/71
[2019-07-14] MEDS: HEPARIN 25,000 UNITS/500ML PMX 500 ML IV PRN (23:38)
[2019-07-14] MEDS: methylPREDNISolone SOD SUCC 40 MG/ML IVPush SCH (23:44)
[2019-07-15] VITALS (7 sets, daily range): BP systolic 98–141; BP diastolic 62–93
[2019-07-15] MEDS: ALBUTEROL/IPRATROPIUM 2.5MG/0.5MG, 3 ML NPPB SCH ×4 (02:40→21:00)
[2019-07-15 05:46] LABS: MEAN CORPUSCULAR HEMOGLOBIN 30.5 pg (27.5-34.5); MEAN CORPUSCULAR HGB CONC 32.4 g/dL (33.2-36.2); MEAN CORPUSCULAR VOLUME 94.1 fL (81-97); MEAN PLATELET VOLUME 8.5 fL (7.4-10.4); PLATELET COUNT 144 x10^3/uL (130-400); RED BLOOD COUNT 4.08 x10^6/uL (4.38-5.82); RED CELL DISTRIBUTION WIDTH 14.3 % (9.4-14.8)
[2019-07-15] MEDS: CARVEDILOL 3.125 MG TABLET PO SCH ×2 (05:50→17:09)
[2019-07-15 05:56] LABS: ANION GAP 6 mmol/L (5-15); CALCIUM 8.7 mg/dL (8.5-10.1); CHLORIDE 105 mmol/L (98-107); CREATININE 1.04 mg/dL (0.7-1.3)
[2019-07-15 06:04] LABS: BASOPHILS # (AUTO) 0.01 x10^3/uL (0-0.1); BASOPHILS % (AUTO) 0 % (0-1); EOSINOPHILS % (AUTO) 0 % (1-7); LYMPHOCYTES # (AUTO) 0.77 x10^3/uL (1-3.4); LYMPHOCYTES % (AUTO) 6 % (22-44); MD SCAN; MONOCYTES # (AUTO) 0.21 x10^3/uL (0.2-0.8); MONOCYTES % (AUTO) 2 % (2-9); NEUTROPHILS # (AUTO) 13.18 x10^3/uL (1.8-6.8); NEUTROPHILS % (AUTO) 93 % (42-75)
[2019-07-15] MEDS: ARIPIPRAZOLE 10 MG TABLET PO SCH (08:57)
[2019-07-15] MEDS: SERTRALINE 50MG TABLET PO SCH (08:57)
[2019-07-15] MEDS: ALLOPURINOL 100 MG TABLET PO SCH (08:58)
[2019-07-15] MEDS: DIVALPROEX 250 MG TABLET.DR PO SCH ×2 (08:58→21:51)
[2019-07-15] MEDS ORDERED: DILTIAZEM 90 MG TABLET PO SCH (09:00)
[2019-07-15] MEDS ORDERED: LISINOPRIL 5 MG TABLET PO SCH (09:00)
[2019-07-15] MEDS ORDERED: METOPROLOL SUCCINATE 50 MG TAB.ER.24H PO SCH (09:00)
[2019-07-15] MEDS: BUDESONIDE 0.5 MG/2 ML INHA INH SCH ×2 (09:00→21:00)
[2019-07-15] MEDS ORDERED: DIGOXIN 0.125 MG TABLET PO SCH (09:00)
[2019-07-15] MEDS: methylPREDNISolone SOD SUCC 40 MG/ML IVPush SCH ×2 (11:50→23:54)
[2019-07-15] MEDS: NICOTINE 14MG/24 HR PATCH.TD24 TD SCH (17:09)
[2019-07-15] MEDS: ATORVASTATIN 20 MG TABLET PO SCH (21:50)
[2019-07-15] MEDS: DILTIAZEM 90 MG TABLET PO SCH (21:51)
[2019-07-16] VITALS (9 sets, daily range): BP systolic 89–129; BP diastolic 54–88
[2019-07-16] MEDS: HEPARIN 25,000 UNITS/500ML PMX 500 ML IV PRN (01:23)
[2019-07-16] MEDS: ALBUTEROL/IPRATROPIUM 2.5MG/0.5MG, 3 ML NPPB SCH ×4 (03:00→20:34)
[2019-07-16] MEDS: DILTIAZEM 90 MG TABLET PO SCH ×3 (04:00→08:01)
[2019-07-16 05:57] LABS: BASOPHILS # (AUTO) 0.06 x10^3/uL (0-0.1); BASOPHILS % (AUTO) 1 % (0-1); EOSINOPHILS # (AUTO) 0.13 x10^3/uL (0-0.4); EOSINOPHILS % (AUTO) 1 % (1-7); LYMPHOCYTES # (AUTO) 0.74 x10^3/uL (1-3.4); LYMPHOCYTES % (AUTO) 6 % (22-44); MD NO; MEAN CORPUSCULAR HGB CONC 32.3 g/dL (33.2-36.2); MEAN CORPUSCULAR VOLUME 96.1 fL (81-97); MEAN PLATELET VOLUME 8.7 fL (7.4-10.4); MONOCYTES # (AUTO) 0.34 x10^3/uL (0.2-0.8); MONOCYTES % (AUTO) 3 % (2-9); NEUTROPHILS # (AUTO) 10.45 x10^3/uL (1.8-6.8); NEUTROPHILS % (AUTO) 89 % (42-75); PLATELET COUNT 139 x10^3/uL (130-400); RED BLOOD COUNT 4.08 x10^6/uL (4.38-5.82); RED CELL DISTRIBUTION WIDTH 14.5 % (9.4-14.8)
[2019-07-16] MEDS: CARVEDILOL 3.125 MG TABLET PO SCH ×2 (06:00→08:00)
[2019-07-16 06:09] LABS: ANION GAP 8 mmol/L (5-15); CALCIUM 8.6 mg/dL (8.5-10.1); CHLORIDE 104 mmol/L (98-107); CREATININE 1.07 mg/dL (0.7-1.3)
[2019-07-16] MEDS: LEVOTHYROXINE 25 MCG TABLET PO SCH (06:22)
[2019-07-16] MEDS: LISINOPRIL 5 MG TABLET PO SCH (07:59)
[2019-07-16] MEDS ORDERED: SODIUM CHLORIDE 0.9% 1,000ML IVBOLUS ONE (08:30)
[2019-07-16] MEDS: ARIPIPRAZOLE 10 MG TABLET PO SCH (09:35)
[2019-07-16] MEDS: ALLOPURINOL 100 MG TABLET PO SCH (09:35)
[2019-07-16] MEDS: SERTRALINE 50MG TABLET PO SCH (09:35)
[2019-07-16] MEDS: DIVALPROEX 250 MG TABLET.DR PO SCH ×2 (09:35→20:51)
[2019-07-16] MEDS: BUDESONIDE 0.5 MG/2 ML INHA INH SCH ×2 (09:45→20:34)
[2019-07-16 11:05] LABS: TROPONIN I < 0.015 ng/mL (0.000-0.045)
[2019-07-16] MEDS: methylPREDNISolone SOD SUCC 40 MG/ML IVPush SCH (13:24)
[2019-07-16] MEDS: NICOTINE 14MG/24 HR PATCH.TD24 TD SCH (16:46)
[2019-07-16 18:32] LABS: TROPONIN I < 0.015 ng/mL (0.000-0.045)
[2019-07-16] MEDS: ATORVASTATIN 20 MG TABLET PO SCH (20:51)
[2019-07-17] MEDS: HEPARIN 25,000 UNITS/500ML PMX 500 ML IV PRN ×2 (00:38→22:03)
[2019-07-17] MEDS: methylPREDNISolone SOD SUCC 40 MG/ML IVPush SCH (01:19)
[2019-07-17 02:41] VITALS: BP 121/79
[2019-07-17] MEDS: ALBUTEROL/IPRATROPIUM 2.5MG/0.5MG, 3 ML NPPB SCH ×4 (03:00→20:27)
[2019-07-17] MEDS: LEVOTHYROXINE 25 MCG TABLET PO SCH (05:33)
[2019-07-17 06:48] LABS: BASOPHILS % (AUTO) 0 % (0-1); EOSINOPHILS # (AUTO) 0.08 x10^3/uL (0-0.4); EOSINOPHILS % (AUTO) 1 % (1-7); LYMPHOCYTES # (AUTO) 0.73 x10^3/uL (1-3.4); LYMPHOCYTES % (AUTO) 7 % (22-44); MD NO; MEAN CORPUSCULAR HGB CONC 32.5 g/dL (33.2-36.2); MEAN CORPUSCULAR VOLUME 95.3 fL (81-97); MEAN PLATELET VOLUME 9.2 fL (7.4-10.4); MONOCYTES # (AUTO) 0.38 x10^3/uL (0.2-0.8); MONOCYTES % (AUTO) 4 % (2-9); NEUTROPHILS # (AUTO) 9.16 x10^3/uL (1.8-6.8); NEUTROPHILS % (AUTO) 89 % (42-75); PLATELET COUNT 135 x10^3/uL (130-400); RED BLOOD COUNT 4.23 x10^6/uL (4.38-5.82); RED CELL DISTRIBUTION WIDTH 14.4 % (9.4-14.8)
[2019-07-17 07:02] LABS: ANION GAP 5 mmol/L (5-15); CHLORIDE 103 mmol/L (98-107)
[2019-07-17 07:05] LABS: CREATININE 0.91 mg/dL (0.7-1.3)
[2019-07-17 07:31] VITALS: BP 135/89
[2019-07-17] MEDS: SERTRALINE 50MG TABLET PO SCH (08:34)
[2019-07-17] MEDS: DIVALPROEX 250 MG TABLET.DR PO SCH ×2 (08:34→21:07)
[2019-07-17] MEDS: LISINOPRIL 5 MG TABLET PO SCH (08:34)
[2019-07-17] MEDS: ALLOPURINOL 100 MG TABLET PO SCH (08:34)
[2019-07-17] MEDS: ARIPIPRAZOLE 10 MG TABLET PO SCH (08:35)
[2019-07-17] MEDS ORDERED: ACETAMINOPHEN 325 MG TABLET PO PRN (09:00)
[2019-07-17] MEDS ORDERED: SODIUM CHLORIDE 0.9% 1,000 ML IV SCH (09:00)
[2019-07-17] MEDS: BUDESONIDE 0.5 MG/2 ML INHA INH SCH ×2 (09:30→20:27)
[2019-07-17] MEDS: CARVEDILOL 3.125 MG TABLET PO SCH ×2 (09:44→17:59)
[2019-07-17] MEDS: INSULIN LISPRO 100 UNITS/ML, PEN SQ-INSULIN SCH ×3 (11:48→21:08)
[2019-07-17 15:32] VITALS: BP 98/66
[2019-07-17] MEDS: metFORMIN 850 MG TABLET PO SCH (16:24)
[2019-07-17] MEDS: NICOTINE 14MG/24 HR PATCH.TD24 TD SCH (17:59)
[2019-07-17 19:27] VITALS: BP 115/76
[2019-07-17] MEDS: ATORVASTATIN 20 MG TABLET PO SCH (21:07)
[2019-07-18 02:21] VITALS: BP 114/78
[2019-07-18] MEDS: ALBUTEROL/IPRATROPIUM 2.5MG/0.5MG, 3 ML NPPB SCH ×4 (03:00→21:00)
[2019-07-18] MEDS: CARVEDILOL 3.125 MG TABLET PO SCH ×2 (06:02→17:42)
[2019-07-18] MEDS: LEVOTHYROXINE 25 MCG TABLET PO SCH (06:02)
[2019-07-18 06:37] LABS: ANION GAP 5 mmol/L (5-15); CHLORIDE 105 mmol/L (98-107); CREATININE 0.99 mg/dL (0.7-1.3)
[2019-07-18] MEDS: INSULIN LISPRO 100 UNITS/ML, PEN SQ-INSULIN SCH ×4 (07:00→20:10)
[2019-07-18 07:42] VITALS: BP 147/98
[2019-07-18] MEDS: BUDESONIDE 0.5 MG/2 ML INHA INH SCH ×2 (07:50→21:00)
[2019-07-18] MEDS: APIXABAN 5 MG TABLET PO SCH ×2 (08:50→20:32)
[2019-07-18] MEDS: SERTRALINE 50MG TABLET PO SCH (08:50)
[2019-07-18] MEDS: ALLOPURINOL 100 MG TABLET PO SCH (08:51)
[2019-07-18] MEDS: LISINOPRIL 5 MG TABLET PO SCH (08:51)
[2019-07-18] MEDS: ARIPIPRAZOLE 10 MG TABLET PO SCH (08:51)
[2019-07-18] MEDS: DIVALPROEX 250 MG TABLET.DR PO SCH ×2 (08:51→20:32)
[2019-07-18] MEDS: metFORMIN 850 MG TABLET PO SCH ×2 (08:51→16:21)
[2019-07-18] MEDS: SODIUM CHLORIDE 0.9% 1,000 ML IV SCH ×2 (08:52→14:00)
[2019-07-18 12:24] VITALS: BP 129/87
[2019-07-18] MEDS: NICOTINE 14MG/24 HR PATCH.TD24 TD SCH (17:42)
[2019-07-18] MEDS: ATORVASTATIN 20 MG TABLET PO SCH (20:32)
[2019-07-18 20:54] VITALS: BP 99/65
[2019-07-19 02:22] VITALS: BP 120/87
[2019-07-19] MEDS: CARVEDILOL 3.125 MG TABLET PO SCH ×2 (05:38→19:36)
[2019-07-19] MEDS: LEVOTHYROXINE 25 MCG TABLET PO SCH (05:38)
[2019-07-19 06:54] VITALS: BP 100/64
[2019-07-19] MEDS: BUDESONIDE 0.5 MG/2 ML INHA INH SCH ×2 (09:00→14:40)
[2019-07-19] MEDS: LACTOBACILLUS CHEW TABLET PO SCH ×3 (09:14→21:18)
[2019-07-19] MEDS: ALLOPURINOL 100 MG TABLET PO SCH (09:14)
[2019-07-19] MEDS: ARIPIPRAZOLE 10 MG TABLET PO SCH (09:14)
[2019-07-19] MEDS: DIVALPROEX 250 MG TABLET.DR PO SCH ×2 (09:15→21:18)
[2019-07-19] MEDS: APIXABAN 5 MG TABLET PO SCH ×2 (09:15→21:18)
[2019-07-19] MEDS: metFORMIN 850 MG TABLET PO SCH (09:15)
[2019-07-19] MEDS: SERTRALINE 50MG TABLET PO SCH (09:15)
[2019-07-19] MEDS: INSULIN LISPRO 100 UNITS/ML, PEN SQ-INSULIN SCH ×4 (09:15→21:00)
[2019-07-19] MEDS: LISINOPRIL 5 MG TABLET PO SCH (09:16)
[2019-07-19] MEDS: SODIUM CHLORIDE 0.9% 1,000 ML IV SCH ×2 (09:30→22:06)
[2019-07-19] MEDS: ALBUTEROL/IPRATROPIUM 2.5MG/0.5MG, 3 ML NPPB SCH ×4 (10:00→20:40)
[2019-07-19 12:27] VITALS: BP 115/84
[2019-07-19 18:53] VITALS: BP 107/71
[2019-07-19] MEDS: NICOTINE 14MG/24 HR PATCH.TD24 TD SCH (19:36)
[2019-07-19] MEDS: ATORVASTATIN 20 MG TABLET PO SCH (21:18)
[2019-07-20 00:24] VITALS: BP 134/86
[2019-07-20 01:21] VITALS: BP 118/80
[2019-07-20] MEDS: ALBUTEROL/IPRATROPIUM 2.5MG/0.5MG, 3 ML NPPB SCH (02:50)
[2019-07-20 06:00] VITALS: BP 107/69
[2019-07-20] MEDS: LEVOTHYROXINE 25 MCG TABLET PO SCH (06:09)
[2019-07-20] MEDS: CARVEDILOL 3.125 MG TABLET PO SCH ×2 (06:09→18:44)
[2019-07-20 06:38] LABS: BASOPHILS # (AUTO) 0.01 x10^3/uL (0-0.1); BASOPHILS % (AUTO) 0 % (0-1); EOSINOPHILS # (AUTO) 0.09 x10^3/uL (0-0.4); EOSINOPHILS % (AUTO) 1 % (1-7); LYMPHOCYTES # (AUTO) 2.17 x10^3/uL (1-3.4); LYMPHOCYTES % (AUTO) 26 % (22-44); MD NO; MEAN CORPUSCULAR HEMOGLOBIN 31.1 pg (27.5-34.5); MEAN CORPUSCULAR HGB CONC 32.7 g/dL (33.2-36.2); MEAN CORPUSCULAR VOLUME 95.1 fL (81-97); MEAN PLATELET VOLUME 8.7 fL (7.4-10.4); MONOCYTES % (AUTO) 6 % (2-9); NEUTROPHILS # (AUTO) 5.53 x10^3/uL (1.8-6.8); NEUTROPHILS % (AUTO) 67 % (42-75); PLATELET COUNT 107 x10^3/uL (130-400); RED BLOOD COUNT 4.51 x10^6/uL (4.38-5.82); RED CELL DISTRIBUTION WIDTH 14.2 % (9.4-14.8)
[2019-07-20 06:43] LABS: ANION GAP 4 mmol/L (5-15); CALCIUM 8.4 mg/dL (8.5-10.1); CHLORIDE 107 mmol/L (98-107); CREATININE 0.98 mg/dL (0.7-1.3)
[2019-07-20 06:57] VITALS: BP 115/76
[2019-07-20] MEDS ORDERED: ALBUTEROL/IPRATROPIUM 2.5MG/0.5MG, 3 ML NPPB SCH (08:00)
[2019-07-20] MEDS ORDERED: BUDESONIDE 0.5 MG/2 ML INHA INH PRN (08:00)
[2019-07-20] MEDS: INSULIN LISPRO 100 UNITS/ML, PEN SQ-INSULIN SCH ×4 (08:06→20:59)
[2019-07-20] MEDS ORDERED: POTASSIUM CHLORIDE 20 MEQ TAB.ER.PRT PO ONE (08:30)
[2019-07-20] MEDS: SERTRALINE 50MG TABLET PO SCH (08:48)
[2019-07-20] MEDS: LACTOBACILLUS CHEW TABLET PO SCH ×3 (08:48→20:58)
[2019-07-20] MEDS: DIVALPROEX 250 MG TABLET.DR PO SCH ×2 (08:48→20:58)
[2019-07-20] MEDS: ARIPIPRAZOLE 10 MG TABLET PO SCH (08:48)
[2019-07-20] MEDS: ALLOPURINOL 100 MG TABLET PO SCH (08:48)
[2019-07-20] MEDS: APIXABAN 5 MG TABLET PO SCH ×2 (08:48→20:59)
[2019-07-20] MEDS: LISINOPRIL 5 MG TABLET PO SCH (08:51)
[2019-07-20] MEDS ORDERED: metFORMIN 850 MG TABLET PO SCH (09:00)
[2019-07-20] MEDS: SODIUM CHLORIDE 0.9% 1,000 ML IV SCH (11:09)
[2019-07-20 12:09] VITALS: BP 119/75
[2019-07-20 18:34] VITALS: BP 106/76
[2019-07-20] MEDS: NICOTINE 14MG/24 HR PATCH.TD24 TD SCH (18:44)
[2019-07-20] MEDS: ATORVASTATIN 20 MG TABLET PO SCH (20:58)
[2019-07-21] MEDS: SODIUM CHLORIDE 0.9% 1,000 ML IV SCH (00:32)
[2019-07-21 00:40] VITALS: BP 115/81
[2019-07-21 05:44] VITALS: BP 101/75
[2019-07-21] MEDS: LEVOTHYROXINE 25 MCG TABLET PO SCH (05:45)
[2019-07-21] MEDS: CARVEDILOL 3.125 MG TABLET PO SCH (05:45)
[2019-07-21 06:44] LABS: ANION GAP 5 mmol/L (5-15); CALCIUM 8.9 mg/dL (8.5-10.1); CHLORIDE 106 mmol/L (98-107)
[2019-07-21 06:45] LABS: CREATININE 0.96 mg/dL (0.7-1.3)
[2019-07-21 07:41] VITALS: BP 95/71
[2019-07-21] MEDS: ARIPIPRAZOLE 10 MG TABLET PO SCH (09:22)
[2019-07-21] MEDS: APIXABAN 5 MG TABLET PO SCH (09:22)
[2019-07-21] MEDS: SERTRALINE 50MG TABLET PO SCH (09:22)
[2019-07-21] MEDS: DIVALPROEX 250 MG TABLET.DR PO SCH (09:23)
[2019-07-21] MEDS: ALLOPURINOL 100 MG TABLET PO SCH (09:23)
[2019-07-21] MEDS: LISINOPRIL 5 MG TABLET PO SCH (09:23)
[2019-07-21] MEDS: LACTOBACILLUS CHEW TABLET PO SCH (09:23)
[2019-07-21] MEDS: INSULIN LISPRO 100 UNITS/ML, PEN SQ-INSULIN SCH ×2 (09:23→11:56)
[2019-07-21] MEDS ORDERED: NICO-486 TD (10:36)
[2019-07-21] MEDS ORDERED: ACID1TAB7 PO (10:36)
[2019-07-21] MEDS ORDERED: CARV3.1212 PO (10:36)
[2019-07-21 13:23] VITALS: BP 121/78
[2019-07-25] MEDS ORDERED: APIXABAN 5 MG TABLET PO SCH (09:00)
== END 2019-07-21 16:03 | disposition home health service (06) | DRG 720 ==
LOC: ED 14:29 → 3N 14:47 → 4EST 21:02 → DCLOUNGE 07-21 15:20
PROVIDERS: ADMIT Hospitalist; ATTEND Internal Medicine
DX: A41.9 Sepsis, unspecified organism (principal); J96.01 Acute respiratory failure with hypoxia; I26.99 Other pulmonary embolism without acute cor pulmonale; N17.9 Acute kidney failure, unspecified; D68.69 Other thrombophilia; E11.65 Type 2 diabetes mellitus with hyperglycemia; I50.22 Chronic systolic (congestive) heart failure; I11.0 Hypertensive heart disease with heart failure; I27.20 Pulmonary hypertension, unspecified; I48.91 Unspecified atrial fibrillation; E03.9 Hypothyroidism, unspecified; E66.9 Obesity, unspecified; Z68.34 Body mass index [BMI] 34.0-34.9, adult; G47.33 Obstructive sleep apnea (adult) (pediatric); J43.9 Emphysema, unspecified; J98.11 Atelectasis; M10.9 Gout, unspecified; F17.210 Nicotine dependence, cigarettes, uncomplicated; Z79.01 Long term (current) use of anticoagulants; Z86.718 Personal history of other venous thrombosis and embolism; Z86.73 Personal history of transient ischemic attack (TIA), and cerebral infarction without residual deficits; Z91.14 Patient's other noncompliance with medication regimen
CPT/HCPCS: 36415; 36600; 71045; 71046; 71275; 80048; 80053; 80162; 80307; 82803; 82962; 83036; 83605; 83735; 83880; 84484; 85025; 85520; 85610; 85730; 87040; 93005; 93306; 93970; 94640; 99291; G0378; J1644; J2405; J7620; J7626; Q0162; Q9967; 92523-GN; J1815; J2270; J2920; J2930; J7030; Q0177

== ENCOUNTER 2019-07-22 12:10 | Inpatient (IN) | payer MEDICAID ==
[~2019-07-22] VITALS: Ht 182.9 cm; Wt 115.2 kg
[~2019-07-22 12:10] MED LIST changes: +ACID1TAB7 PO; +CARV3.1212 PO; +DIVA250T PO; +FLUT1DIS3 INH; +HYDR-826 PO; +NICO-486 TD
--- NOTE | 2019-07-22 12:29 | NUR ---
PT PLACED ON ALL ROOM MONITORING. WARM BLANKET PROVIDED, CALL LIGHT WITHIN REACH. PT STATES SOB RESOLVED AT THIS TIME FOLLOWING NEB TX AND MEDS GIVEN BY EMS.
[2019-07-22 12:49] LABS: BASOPHILS # (AUTO) 0.02 x10^3/uL (0-0.1); BASOPHILS % (AUTO) 0 % (0-1); EOSINOPHILS # (AUTO) 0.09 x10^3/uL (0-0.4); EOSINOPHILS % (AUTO) 1 % (1-7); LYMPHOCYTES # (AUTO) 1.56 x10^3/uL (1-3.4); LYMPHOCYTES % (AUTO) 22 % (22-44); MD NO; MEAN CORPUSCULAR HEMOGLOBIN 30.9 pg (27.5-34.5); MEAN CORPUSCULAR HGB CONC 32.9 g/dL (33.2-36.2); MEAN PLATELET VOLUME 8.8 fL (7.4-10.4); MONOCYTES # (AUTO) 0.38 x10^3/uL (0.2-0.8); MONOCYTES % (AUTO) 6 % (2-9); NEUTROPHILS # (AUTO) 4.96 x10^3/uL (1.8-6.8); NEUTROPHILS % (AUTO) 71 % (42-75); PLATELET COUNT 111 x10^3/uL (130-400); RED BLOOD COUNT 4.67 x10^6/uL (4.38-5.82); RED CELL DISTRIBUTION WIDTH 14.4 % (9.4-14.8)
[2019-07-22 13:01] LABS: ALBUMIN 3.1 g/dL (3.4-5.0); ANION GAP 4 mmol/L (5-15); CALCIUM 8.8 mg/dL (8.5-10.1); CHLORIDE 107 mmol/L (98-107); CREATININE 0.94 mg/dL (0.7-1.3)
[2019-07-22 13:04] LABS: TROPONIN I < 0.015 ng/mL (0.000-0.045)
--- NOTE | 2019-07-22 13:12 | NUR ---
TASK RN: EKG OBTAINED. PT RESTING ON GURNEY CONNECTED TO NIBP CUFF, CONTINOUS PULSE OX, AND DEPILATORY PAINTER. BEDRAILS UP X 2 AND CALL LIGHT WITHIN REACH. NADN. NO NEEDS EXPRESSED.
--- NOTE | 2019-07-22 13:52 | NUR ---
PT SLEEPING, NAD, VSS/UPDATED IN COMPUTER.
--- NOTE | 2019-07-22 15:21 | NUR ---
ATTEMPT TO AMBULATE PT UNSUCCESSFUL. PT DIZZY AND NEAR SYNCOPE WHILE STANDING. ORTHOSTATIC VS OBTAINED AND REPORTED TO ERP. 500 CC NS BOLUS INFUSING. CALL LIGHT WITHIN REACH.
[2019-07-22] MEDS ORDERED: SODIUM CHLORIDE 0.9%, 500ML IVBOLUS ONE ×2 (15:30→17:00)
--- NOTE | 2019-07-22 15:34 | NUR ---
NS BOLUS INFUSING, MEAL TRAY ORDERED FOR PT AFTER VERIFICATION FROM ERP THAT IT'S OK. CALL LIGHT WITHIN REACH.
--- NOTE | 2019-07-22 16:29 | NUR ---
MEAL TRAY PROVIDED. IVF BOLUS INFUSING SLOWLY, IV FLUSHED AND BAG HUNG HIGHER. PT STATES NO DIZZINESS WHILE SITTING ON GURNEY.
--- NOTE | 2019-07-22 18:24 | NUR ---
MED REQUEST FOR [facility] GTT SENT TO PHARMACY. HOSPITAL BED ORDERED.
--- NOTE | 2019-07-22 18:50 | NUR ---
IV RETAPED. [facility] IN TO SEE PT. HOSPITAL BED AT ROOM DOOR.
--- NOTE | 2019-07-22 19:12 | NUR ---
REPORT TO NORA ABRAHAM.
[2019-07-22] MEDS: DILTIAZEM 125 MG in SODIUM CHLORIDE 0.9% 100 ML IV SCH ×2 (19:13→19:30)
[2019-07-22] MEDS ORDERED: ONDANSETRON 2MG/ML, 2ML IVPush PRN (19:30)
[2019-07-22] MEDS ORDERED: ZOLPIDEM 5MG TABLET PO SCH (19:30)
[2019-07-22] MEDS ORDERED: ENALAPRILAT 1.25 MG/ML, 2ML IVPush PRN (19:30)
[2019-07-22] MEDS: NICOTINE 14MG/24 HR PATCH.TD24 TD SCH (19:30)
[2019-07-22] MEDS ORDERED: ALBUTEROL SULFATE 2.5 MG/3 ML ONE (19:56)
[2019-07-22] MEDS ORDERED: BUDESONIDE 0.5 MG/2 ML INHA ONE (19:56)
--- NOTE | 2019-07-22 20:00 | NUR ---
PT GIVEN SNACK. NO OTHER NEEDS.
[2019-07-22 20:05] LABS: FREE T4 (FREE THYROXINE) 1.24 ng/dL (0.76-1.46)
[2019-07-22] MEDS: ALBUTEROL SULFATE 2.5 MG/3 ML NPPB SCH (20:13)
[2019-07-22] MEDS: BUDESONIDE 0.5 MG/2 ML INHA NPPB SCH (20:13)
--- NOTE | 2019-07-22 20:30 | NUR ---
STETCHER REMOVED AND HOSPITAL BED PLACED.
[2019-07-22] MEDS ORDERED: APIXABAN 5 MG TABLET PO SCH (21:00)
--- NOTE | 2019-07-22 22:00 | NUR ---
PT RESTING WITH EYES CLOSED. MONITOR IN PLACE.
--- NOTE | 2019-07-22 23:00 | NUR ---
PT RESTING WITH EYES CLOSED. MONITOR IN PLACE.
[2019-07-22] MEDS ORDERED: MAGNESIUM SULFATE 1 GM in SODIUM CHLORIDE 0.9% 50 ML IV ONE (23:30)
[2019-07-23] MEDS: SIMVASTATIN 10 MG TABLET PO SCH ×2 (00:35→21:04)
[2019-07-23] MEDS: DIVALPROEX 250 MG TAB.ER.24H PO SCH ×3 (00:35→21:04)
[2019-07-23] MEDS: TRAZODONE 150MG TABLET PO SCH ×2 (00:35→21:03)
--- NOTE | 2019-07-23 02:08 | NUR ---
DR. GUADARRAMA NOTIFIED OF LOW BP. ORDERS TO STOP CARDIZEM DRIP AND NOTIFY IN 1 HOUR IF BP STILL LOW. PATIENT PLACED ON 2L O2 SATS 87-89%.
[2019-07-23] MEDS: DILTIAZEM 125 MG in SODIUM CHLORIDE 0.9% 100 ML IV SCH ×2 (02:10→19:18)
[2019-07-23] MEDS: ALBUTEROL SULFATE 2.5 MG/3 ML NPPB SCH ×5 (02:30→19:40)
[2019-07-23] MEDS ORDERED: ALBUTEROL SULFATE 2.5 MG/3 ML ONE ×2 (02:36→10:01)
--- NOTE | 2019-07-23 04:00 | NUR ---
PT RESTING WITH EYES CLOSED. VITALS WNL.
[2019-07-23] MEDS: LEVOTHYROXINE 25 MCG TABLET PO SCH (05:15)
--- NOTE | 2019-07-23 06:15 | NUR ---
PT RESTING WITH EYES CLOSED. MONITOR IN PLACE.
[2019-07-23] MEDS: INSULIN LISPRO 100 UNITS/ML, PEN SQ-INSULIN SCH ×4 (07:53→23:04)
--- NOTE | 2019-07-23 07:54 | NUR ---
Insulin not provided per [facility] performed with hospital glucometer per [facility] sliding scale. Please see charting.
--- NOTE | 2019-07-23 07:57 | NUR ---
Pt's daily weight obtained from built in bed scale of 116.6 kg.
[2019-07-23] MEDS ORDERED: LISINOPRIL 5 MG TABLET ONE (08:00)
[2019-07-23] MEDS ORDERED: ARIPIPRAZOLE 10 MG TABLET ONE (08:00)
[2019-07-23] MEDS ORDERED: SERTRALINE 50MG TABLET ONE (08:01)
[2019-07-23] MEDS ORDERED: APIXABAN 5 MG TABLET ONE (08:01)
[2019-07-23] MEDS: ARIPIPRAZOLE 10 MG TABLET PO SCH (08:10)
[2019-07-23] MEDS: SERTRALINE 50MG TABLET PO SCH (08:11)
[2019-07-23] MEDS: LISINOPRIL 5 MG TABLET PO SCH (08:12)
[2019-07-23] MEDS: POTASSIUM CHLORIDE 10 MEQ TABLET.ER PO SCH (08:40)
[2019-07-23] MEDS: APIXABAN 5 MG TABLET PO SCH ×2 (08:40→21:04)
[2019-07-23] MEDS: BUDESONIDE 0.5 MG/2 ML INHA NPPB SCH ×2 (09:00→19:40)
[2019-07-23 09:27] LABS: AMPHETAMINE SCREEN, URINE Negative (Negative); BARBITURATE SCREEN, URINE Negative (Negative); BENZODIAZEPINE SCREEN, URINE Negative (Negative); CANNABINOID SCREEN, URINE Negative (Negative); COCAINE SCREEN, URINE Negative (Negative); METHADONE SCREEN, URINE Negative (Negative); OPIATE SCREEN, URINE Negative (Negative)
[2019-07-23] MEDS ORDERED: BUDESONIDE 0.5 MG/2 ML INHA ONE (10:01)
--- NOTE | 2019-07-23 10:13 | NUR ---
Pt sleeping with eyes shut on hospital bed with unlabored respirations with even chest rise and fall. NADN. No needs expressed. Lunch tray ordered for pt.
--- NOTE | 2019-07-23 11:43 | NUR ---
Pt resting on hospital bed on right lateral side with eyes closed. Pt has unlabored respirations with even chest rise and fall. NADN. No needs expressed at this time.
--- NOTE | 2019-07-23 11:49 | NUR ---
Per pt's sliding scale, pt does not require insulin for [facility] on hospital glucometer of 140. Please see EMAR.
--- NOTE | 2019-07-23 11:57 | NUR ---
Pt provided lunch tray. Pt appreciative. NADN. No other needs expressed.
--- NOTE | 2019-07-23 12:27 | NUR ---
IS provided. Pt educated on use. Pt states verbal understanding. Pt states, "I have used one before".
--- NOTE | 2019-07-23 13:03 | NUR ---
RECEIVED REPORT FROM YOHAN. PT SLEEPING ON BED COMFORTABLEY, RESPONDS APPROP TO STAFF, NAD, NO NEEDS AT THIS TIME, CALL LIGHT WITHIN REACH.
--- NOTE | 2019-07-23 13:04 | NUR ---
Provided report to LEIGH Leary. All questions answered. LEIGH Leary to assume care of pt at this time. NADN. No needs expressed at this time.
--- NOTE | 2019-07-23 14:00 | NUR ---
PT CONTINUES SLEEPING ON BED COMFORTABLEY, RESPONDS APPROP TO STAFF, NAD, NO NEEDS AT THIS TIME, CALL LIGHT WITHIN REACH.
--- NOTE | 2019-07-23 15:02 | NUR ---
PT SLEEPING ON BED COMFORTABLEY, RESPONDS APPROP TO STAFF, NAD, NO NEEDS AT THIS TIME, CALL LIGHT WITHIN REACH.
--- NOTE | 2019-07-23 15:11 | NUR ---
Pt to be admitted to card-tele, room 504. Report called to Katya.
[2019-07-23 16:13] VITALS: BP 103/70
[2019-07-23] MEDS ORDERED: CARVEDILOL 3.125 MG TABLET PO SCH (18:00)
[2019-07-23 18:04] VITALS: BP 103/70
[2019-07-23] MEDS: LACTOBACILLUS CHEW TABLET PO SCH ×2 (18:22→21:03)
[2019-07-23] MEDS: BUDESONIDE 0.5 MG/2 ML INHA INH SCH (19:41)
[2019-07-23 20:58] VITALS: BP 103/68
[2019-07-23] MEDS: NICOTINE 14MG/24 HR PATCH.TD24 TD SCH (21:03)
[2019-07-24 02:14] VITALS: BP 103/68
[2019-07-24] MEDS: ALBUTEROL SULFATE 2.5 MG/3 ML NPPB SCH ×5 (02:30→20:57)
[2019-07-24 05:23] LABS: BASOPHILS # (AUTO) 0.02 x10^3/uL (0-0.1); BASOPHILS % (AUTO) 0 % (0-1); EOSINOPHILS % (AUTO) 1 % (1-7); LYMPHOCYTES % (AUTO) 28 % (22-44); MD NO; MEAN CORPUSCULAR HEMOGLOBIN 31.2 pg (27.5-34.5); MEAN CORPUSCULAR VOLUME 94.5 fL (81-97); MEAN PLATELET VOLUME 9.3 fL (7.4-10.4); MONOCYTES # (AUTO) 0.66 x10^3/uL (0.2-0.8); MONOCYTES % (AUTO) 7 % (2-9); NEUTROPHILS # (AUTO) 5.59 x10^3/uL (1.8-6.8); NEUTROPHILS % (AUTO) 63 % (42-75); PLATELET COUNT 111 x10^3/uL (130-400); RED BLOOD COUNT 4.18 x10^6/uL (4.38-5.82); RED CELL DISTRIBUTION WIDTH 14.4 % (9.4-14.8)
[2019-07-24 05:33] LABS: ANION GAP 7 mmol/L (5-15); CALCIUM 8.3 mg/dL (8.5-10.1); CHLORIDE 108 mmol/L (98-107)
[2019-07-24] MEDS: LEVOTHYROXINE 25 MCG TABLET PO SCH (06:08)
[2019-07-24] MEDS: ASPIRIN 81 MG TABLET EC PO SCH (06:08)
[2019-07-24 06:55] VITALS: BP 95/61
[2019-07-24] MEDS: INSULIN LISPRO 100 UNITS/ML, PEN SQ-INSULIN SCH ×4 (07:00→21:06)
[2019-07-24] MEDS: BUDESONIDE 0.5 MG/2 ML INHA INH SCH ×2 (08:22→20:57)
[2019-07-24] MEDS ORDERED: TEMPLATE NON-FORMULARY MED. (Fluticasone/Salmeterol** (Advair 250-50 Diskus**) 1 PUFF) INH SCH (09:00)
[2019-07-24] MEDS: DIVALPROEX 250 MG TAB.ER.24H PO SCH ×2 (09:56→21:05)
[2019-07-24] MEDS: ARIPIPRAZOLE 10 MG TABLET PO SCH (09:56)
[2019-07-24] MEDS: LISINOPRIL 5 MG TABLET PO SCH (09:56)
[2019-07-24] MEDS: ALLOPURINOL 300 MG TABLET PO SCH (09:56)
[2019-07-24] MEDS: POTASSIUM CHLORIDE 10 MEQ TABLET.ER PO SCH (09:56)
[2019-07-24] MEDS: APIXABAN 5 MG TABLET PO SCH ×2 (09:57→21:05)
[2019-07-24] MEDS: SERTRALINE 50MG TABLET PO SCH (09:57)
[2019-07-24] MEDS: LACTOBACILLUS CHEW TABLET PO SCH ×3 (09:57→21:05)
[2019-07-24 14:07] VITALS: BP 91/58
[2019-07-24] MEDS ORDERED: SODIUM CHLORIDE 0.9% 1,000ML IVBOLUS ONE (14:30)
[2019-07-24] MEDS ORDERED: LEVOTHYROXINE 100 MCG TABLET PO ONE (15:00)
[2019-07-24 19:26] VITALS: BP 97/65
[2019-07-24] MEDS: NICOTINE 14MG/24 HR PATCH.TD24 TD SCH (21:05)
[2019-07-24] MEDS: SIMVASTATIN 10 MG TABLET PO SCH (21:06)
[2019-07-24] MEDS: TRAZODONE 150MG TABLET PO SCH (21:06)
[2019-07-24] MEDS: MELATONIN 5 MG TABLET PO SCH (21:06)
[2019-07-25 00:16] VITALS: BP 100/67
[2019-07-25] MEDS: ALBUTEROL SULFATE 2.5 MG/3 ML NPPB SCH ×4 (03:00→21:00)
[2019-07-25 05:10] LABS: BASOPHILS # (AUTO) 0.02 x10^3/uL (0-0.1); BASOPHILS % (AUTO) 0 % (0-1); EOSINOPHILS # (AUTO) 0.09 x10^3/uL (0-0.4); EOSINOPHILS % (AUTO) 1 % (1-7); LYMPHOCYTES # (AUTO) 2.43 x10^3/uL (1-3.4); LYMPHOCYTES % (AUTO) 34 % (22-44); MD NO; MEAN CORPUSCULAR HEMOGLOBIN 30.9 pg (27.5-34.5); MEAN CORPUSCULAR HGB CONC 32.2 g/dL (33.2-36.2); MEAN CORPUSCULAR VOLUME 95.9 fL (81-97); MEAN PLATELET VOLUME 9.3 fL (7.4-10.4); MONOCYTES % (AUTO) 8 % (2-9); NEUTROPHILS % (AUTO) 56 % (42-75); PLATELET COUNT 102 x10^3/uL (130-400); RED BLOOD COUNT 4.11 x10^6/uL (4.38-5.82); RED CELL DISTRIBUTION WIDTH 14.6 % (9.4-14.8)
[2019-07-25 05:15] LABS: ALBUMIN 2.8 g/dL (3.4-5.0); CHLORIDE 109 mmol/L (98-107)
[2019-07-25 05:18] LABS: ANION GAP 5 mmol/L (5-15); CALCIUM 7.9 mg/dL (8.5-10.1); CREATININE 1.01 mg/dL (0.7-1.3)
[2019-07-25] MEDS: ASPIRIN 81 MG TABLET EC PO SCH (05:25)
[2019-07-25] MEDS: LEVOTHYROXINE 100 MCG TABLET PO SCH (05:25)
[2019-07-25] MEDS: INSULIN LISPRO 100 UNITS/ML, PEN SQ-INSULIN SCH ×4 (07:00→20:55)
[2019-07-25 07:18] VITALS: BP 109/73
[2019-07-25] MEDS: POTASSIUM CHLORIDE 10 MEQ TABLET.ER PO SCH (08:25)
[2019-07-25] MEDS: DIVALPROEX 250 MG TAB.ER.24H PO SCH ×2 (08:25→20:14)
[2019-07-25] MEDS: ARIPIPRAZOLE 10 MG TABLET PO SCH (08:25)
[2019-07-25] MEDS: LACTOBACILLUS CHEW TABLET PO SCH ×3 (08:25→20:15)
[2019-07-25] MEDS: SERTRALINE 50MG TABLET PO SCH (08:26)
[2019-07-25] MEDS: APIXABAN 5 MG TABLET PO SCH ×2 (08:26→20:14)
[2019-07-25] MEDS: ALLOPURINOL 300 MG TABLET PO SCH (08:34)
[2019-07-25] MEDS: BUDESONIDE 0.5 MG/2 ML INHA INH SCH ×2 (08:50→21:00)
[2019-07-25] MEDS ORDERED: LEVO100T PO (12:36)
[2019-07-25] MEDS: ACETAMINOPHEN 325 MG TABLET PO PRN ×2 (13:37→20:14)
[2019-07-25 14:00] VITALS: BP 121/85
[2019-07-25] MEDS: DILTIAZEM 30 MG TABLET PO SCH ×3 (14:06→20:14)
[2019-07-25 15:22] VITALS: BP 102/61
[2019-07-25 19:18] VITALS: BP 94/66
[2019-07-25] MEDS: NICOTINE 14MG/24 HR PATCH.TD24 TD SCH (20:13)
[2019-07-25] MEDS: MELATONIN 5 MG TABLET PO SCH (20:14)
[2019-07-25] MEDS: SIMVASTATIN 10 MG TABLET PO SCH (20:15)
[2019-07-25] MEDS: TRAZODONE 150MG TABLET PO SCH (20:15)
[2019-07-26 00:16] VITALS: BP 92/64
[2019-07-26] MEDS: ALBUTEROL SULFATE 2.5 MG/3 ML NPPB SCH ×5 (03:00→19:55)
[2019-07-26] MEDS: LEVOTHYROXINE 100 MCG TABLET PO SCH (05:55)
[2019-07-26] MEDS: ASPIRIN 81 MG TABLET EC PO SCH (05:55)
[2019-07-26] MEDS: INSULIN LISPRO 100 UNITS/ML, PEN SQ-INSULIN SCH ×4 (07:00→20:36)
[2019-07-26 07:23] LABS: ANION GAP 4 mmol/L (5-15); CALCIUM 8.6 mg/dL (8.5-10.1); CHLORIDE 110 mmol/L (98-107); CREATININE 1.06 mg/dL (0.7-1.3)
[2019-07-26 07:24] LABS: BASOPHILS # (AUTO) 0.02 x10^3/uL (0-0.1); BASOPHILS % (AUTO) 0 % (0-1); EOSINOPHILS # (AUTO) 0.11 x10^3/uL (0-0.4); EOSINOPHILS % (AUTO) 2 % (1-7); LYMPHOCYTES # (AUTO) 2.21 x10^3/uL (1-3.4); LYMPHOCYTES % (AUTO) 31 % (22-44); MD NO; MEAN CORPUSCULAR VOLUME 93.8 fL (81-97); MEAN PLATELET VOLUME 9.3 fL (7.4-10.4); MONOCYTES # (AUTO) 0.56 x10^3/uL (0.2-0.8); MONOCYTES % (AUTO) 8 % (2-9); NEUTROPHILS # (AUTO) 4.25 x10^3/uL (1.8-6.8); NEUTROPHILS % (AUTO) 59 % (42-75); PLATELET COUNT 107 x10^3/uL (130-400); RED BLOOD COUNT 4.44 x10^6/uL (4.38-5.82); RED CELL DISTRIBUTION WIDTH 14.4 % (9.4-14.8)
[2019-07-26 07:56] VITALS: BP 90/61
[2019-07-26] MEDS: BUDESONIDE 0.5 MG/2 ML INHA INH SCH ×3 (08:10→19:55)
[2019-07-26] MEDS: DILTIAZEM 30 MG TABLET PO SCH ×3 (08:32→20:35)
[2019-07-26] MEDS: APIXABAN 5 MG TABLET PO SCH ×2 (08:32→20:35)
[2019-07-26] MEDS: SERTRALINE 50MG TABLET PO SCH (08:33)
[2019-07-26] MEDS: LACTOBACILLUS CHEW TABLET PO SCH ×3 (08:33→20:35)
[2019-07-26] MEDS: ALLOPURINOL 300 MG TABLET PO SCH (08:33)
[2019-07-26] MEDS: ARIPIPRAZOLE 10 MG TABLET PO SCH (08:33)
[2019-07-26] MEDS: DIVALPROEX 250 MG TAB.ER.24H PO SCH ×2 (08:33→20:36)
[2019-07-26] MEDS: POTASSIUM CHLORIDE 10 MEQ TABLET.ER PO SCH (08:33)
[2019-07-26] MEDS: ACETAMINOPHEN 325 MG TABLET PO PRN (09:47)
[2019-07-26] MEDS: CARVEDILOL 3.125 MG TABLET PO SCH ×2 (12:11→16:58)
[2019-07-26 13:51] VITALS: BP 94/57
[2019-07-26 18:33] VITALS: BP 115/82
[2019-07-26] MEDS: NICOTINE 14MG/24 HR PATCH.TD24 TD SCH (20:35)
[2019-07-26] MEDS: SIMVASTATIN 10 MG TABLET PO SCH (20:35)
[2019-07-26] MEDS: TRAZODONE 150MG TABLET PO SCH (20:35)
[2019-07-26] MEDS: MELATONIN 5 MG TABLET PO SCH (20:35)
[2019-07-27] VITALS (8 sets, daily range): BP systolic 85–121; BP diastolic 50–83
[2019-07-27] MEDS: ALBUTEROL SULFATE 2.5 MG/3 ML NPPB SCH ×4 (03:00→21:20)
[2019-07-27 05:27] LABS: ALBUMIN 3.1 g/dL (3.4-5.0); ANION GAP 6 mmol/L (5-15); CALCIUM 8.8 mg/dL (8.5-10.1); CHLORIDE 109 mmol/L (98-107)
[2019-07-27 05:40] LABS: CREATININE 1.06 mg/dL (0.7-1.3)
[2019-07-27] MEDS: ASPIRIN 81 MG TABLET EC PO SCH (06:18)
[2019-07-27] MEDS: LEVOTHYROXINE 100 MCG TABLET PO SCH (06:18)
[2019-07-27] MEDS: CARVEDILOL 3.125 MG TABLET PO SCH ×2 (06:18→18:00)
[2019-07-27 06:20] LABS: MD YES; MEAN CORPUSCULAR HEMOGLOBIN 30.7 pg (27.5-34.5); MEAN CORPUSCULAR HGB CONC 32.7 g/dL (33.2-36.2); MEAN CORPUSCULAR VOLUME 93.7 fL (81-97); PLATELET COUNT 122 x10^3/uL (130-400); RED BLOOD COUNT 4.47 x10^6/uL (4.38-5.82); RED CELL DISTRIBUTION WIDTH 14.2 % (9.4-14.8)
[2019-07-27 06:47] LABS: LYMPH#(MANUAL) 4.09 x10^3/uL (1-3.4); LYMPHS% (MANUAL) 46 % (22-44); MONOS#(MANUAL) 0.53 x10^3/uL (0.3-2.7); MONOS% (MANUAL) 6 % (2-9); SEG#(MANUAL) 4.27 x10^3/uL (1.8-6.8); SEGS% (MANUAL) 48 % (42-75)
[2019-07-27 06:50] LABS: <PLATELET ESTIMATE> DECREASED; <PLT MORPHOLOGY> NORMAL PLT MORPH; <RBC MORPHOLOGY> NORMAL
[2019-07-27] MEDS: INSULIN LISPRO 100 UNITS/ML, PEN SQ-INSULIN SCH ×4 (07:00→21:17)
[2019-07-27] MEDS: DILTIAZEM 30 MG TABLET PO SCH ×3 (09:00→21:16)
[2019-07-27] MEDS: BUDESONIDE 0.5 MG/2 ML INHA INH SCH ×2 (09:00→21:20)
[2019-07-27] MEDS: DIVALPROEX 250 MG TAB.ER.24H PO SCH ×2 (09:36→21:16)
[2019-07-27] MEDS: ALLOPURINOL 300 MG TABLET PO SCH (09:37)
[2019-07-27] MEDS: LACTOBACILLUS CHEW TABLET PO SCH ×3 (09:37→21:16)
[2019-07-27] MEDS: POTASSIUM CHLORIDE 10 MEQ TABLET.ER PO SCH (09:37)
[2019-07-27] MEDS: ARIPIPRAZOLE 10 MG TABLET PO SCH (09:37)
[2019-07-27] MEDS: APIXABAN 5 MG TABLET PO SCH ×2 (09:37→21:16)
[2019-07-27] MEDS ORDERED: SODIUM CHLORIDE 0.9% 1,000ML IVBOLUS ONE (14:00)
[2019-07-27] MEDS: SERTRALINE 50MG TABLET PO SCH (16:52)
[2019-07-27] MEDS ORDERED: SODIUM CHLORIDE 0.9% 1,000ML IV ONE (19:00)
[2019-07-27] MEDS: NICOTINE 14MG/24 HR PATCH.TD24 TD SCH (21:16)
[2019-07-27] MEDS: SIMVASTATIN 10 MG TABLET PO SCH (21:16)
[2019-07-27] MEDS: TRAZODONE 150MG TABLET PO SCH (21:17)
[2019-07-27] MEDS: MELATONIN 5 MG TABLET PO SCH (21:17)
[2019-07-27] MEDS: ACETAMINOPHEN 325 MG TABLET PO PRN (21:17)
[2019-07-28 01:54] VITALS: BP 94/65
[2019-07-28] MEDS: ALBUTEROL SULFATE 2.5 MG/3 ML NPPB SCH ×2 (02:56→06:59)
[2019-07-28 05:48] VITALS: BP 99/68
[2019-07-28] MEDS: ASPIRIN 81 MG TABLET EC PO SCH (05:49)
[2019-07-28] MEDS: CARVEDILOL 3.125 MG TABLET PO SCH (05:49)
[2019-07-28] MEDS: LEVOTHYROXINE 100 MCG TABLET PO SCH (05:49)
[2019-07-28 06:34] VITALS: BP 100/67
[2019-07-28 06:48] LABS: MD NO
[2019-07-28 06:51] LABS: CALCIUM 8.4 mg/dL (8.5-10.1); CHLORIDE 109 mmol/L (98-107)
[2019-07-28 06:54] LABS: ANION GAP 6 mmol/L (5-15); CREATININE 1.09 mg/dL (0.7-1.3)
[2019-07-28] MEDS: BUDESONIDE 0.5 MG/2 ML INHA INH SCH (06:59)
[2019-07-28] MEDS: INSULIN LISPRO 100 UNITS/ML, PEN SQ-INSULIN SCH ×3 (07:07→15:51)
[2019-07-28 08:06] LABS: BASOPHILS # (AUTO) 0.02 x10^3/uL (0-0.1); BASOPHILS % (AUTO) 0 % (0-1); EOSINOPHILS # (AUTO) 0.12 x10^3/uL (0-0.4); EOSINOPHILS % (AUTO) 2 % (1-7); LYMPHOCYTES # (AUTO) 1.84 x10^3/uL (1-3.4); LYMPHOCYTES % (AUTO) 32 % (22-44); MEAN CORPUSCULAR HEMOGLOBIN 31.3 pg (27.5-34.5); MEAN CORPUSCULAR HGB CONC 33.1 g/dL (33.2-36.2); MEAN CORPUSCULAR VOLUME 94.6 fL (81-97); MEAN PLATELET VOLUME 8.3 fL (7.4-10.4); MONOCYTES # (AUTO) 0.41 x10^3/uL (0.2-0.8); MONOCYTES % (AUTO) 7 % (2-9); NEUTROPHILS # (AUTO) 3.32 x10^3/uL (1.8-6.8); NEUTROPHILS % (AUTO) 58 % (42-75); PLATELET COUNT 111 x10^3/uL (130-400); RED CELL DISTRIBUTION WIDTH 14.2 % (9.4-14.8)
[2019-07-28] MEDS ORDERED: SERTRALINE 100MG TABLET ONE (08:55)
[2019-07-28] MEDS: DILTIAZEM 30 MG TABLET PO SCH (08:58)
[2019-07-28] MEDS: ALLOPURINOL 300 MG TABLET PO SCH (08:58)
[2019-07-28] MEDS: ARIPIPRAZOLE 10 MG TABLET PO SCH (08:58)
[2019-07-28] MEDS: POTASSIUM CHLORIDE 10 MEQ TABLET.ER PO SCH (08:58)
[2019-07-28] MEDS: SERTRALINE 50MG TABLET PO SCH (09:00)
[2019-07-28] MEDS: DIVALPROEX 250 MG TAB.ER.24H PO SCH (09:01)
[2019-07-28] MEDS: APIXABAN 5 MG TABLET PO SCH (09:01)
[2019-07-28] MEDS: LACTOBACILLUS CHEW TABLET PO SCH (09:01)
[2019-07-28 13:00] VITALS: BP 109/77
== END 2019-07-28 17:22 | disposition home or self-care (01) | DRG 201 ==
LOC: ED 18:11 → EDIP 18:13 → 5SO 07-23 15:53 → DCLOUNGE 07-28 15:15
PROVIDERS: ADMIT Family Medicine; ATTEND Family Medicine
PROC: 5A09357 Assistance with Respiratory Ventilation, Less than 24 Consecutive Hours, Continuous Positive Airway Pressure (ICD-10-PCS; principal; 2019-07-24)
DX: I48.19 Other persistent atrial fibrillation (principal); D68.69 Other thrombophilia; D69.6 Thrombocytopenia, unspecified; I11.0 Hypertensive heart disease with heart failure; E11.65 Type 2 diabetes mellitus with hyperglycemia; I50.22 Chronic systolic (congestive) heart failure; E03.9 Hypothyroidism, unspecified; E86.0 Dehydration; F17.200 Nicotine dependence, unspecified, uncomplicated; E66.9 Obesity, unspecified; J43.9 Emphysema, unspecified; M10.9 Gout, unspecified; R00.0 Tachycardia, unspecified; F41.1 Generalized anxiety disorder; G47.30 Sleep apnea, unspecified; I25.2 Old myocardial infarction; Z79.01 Long term (current) use of anticoagulants; Z79.890 Hormone replacement therapy; Z86.711 Personal history of pulmonary embolism; Z86.718 Personal history of other venous thrombosis and embolism; Z86.73 Personal history of transient ischemic attack (TIA), and cerebral infarction without residual deficits; Z91.14 Patient's other noncompliance with medication regimen; Z91.19 Patient's noncompliance with other medical treatment and regimen
CPT/HCPCS: 36415; 71045; 80048; 80069; 80307; 82040; 82962; 83735; 83880; 84439; 84443; 84481; 84484; 85025; 93005; 94640; 99285; G0378; J3475; J7613; J7626; J1815; J7030; J7040; Q0177

== ENCOUNTER 2019-07-30 11:03 | Emergency (ER) | payer MEDICAID ==
[~2019-07-30] VITALS: Ht 182.9 cm; Wt 105.0 kg
[~2019-07-30 11:03] MED LIST changes: +LEVO100T PO
--- NOTE | 2019-07-30 11:10 | NUR ---
THIS IS A 59 YO M W/ C/O SOB X2 DAYS. PATIENT STATES HE WAS DISCHARGED FROM THIS FACILITY 2 DAYS AGO. NEW DX OF CHF. PATIENTS RESPIRATIONS ARE EVEN AND UNLABORED. PATIENT IS IN NO ACUTE DISTRESS. RESTING ON GURNEY CONVERSING WITH STAFF. CALL LIGHT IN REACH.
[2019-07-30] MEDS ORDERED: SODIUM CHLORIDE FLUSH 10ML SYR IVF ONE (11:30)
[2019-07-30] MEDS ORDERED: DILTIAZEM 5 MG/ML, 5ML IVPush ONE (11:30)
--- NOTE | 2019-07-30 11:32 | NUR ---
EKG DONE, RADIOLOGY IN ROOM.
[2019-07-30 11:49] LABS: BASOPHILS # (AUTO) 0.01 x10^3/uL (0-0.1); BASOPHILS % (AUTO) 0 % (0-1); EOSINOPHILS # (AUTO) 0.05 x10^3/uL (0-0.4); EOSINOPHILS % (AUTO) 1 % (1-7); LYMPHOCYTES % (AUTO) 24 % (22-44); MD NO; MEAN CORPUSCULAR HEMOGLOBIN 30.6 pg (27.5-34.5); MEAN CORPUSCULAR VOLUME 92.6 fL (81-97); MEAN PLATELET VOLUME 8.4 fL (7.4-10.4); MONOCYTES # (AUTO) 0.39 x10^3/uL (0.2-0.8); MONOCYTES % (AUTO) 7 % (2-9); NEUTROPHILS # (AUTO) 3.61 x10^3/uL (1.8-6.8); NEUTROPHILS % (AUTO) 67 % (42-75); PLATELET COUNT 114 x10^3/uL (130-400); RED BLOOD COUNT 4.58 x10^6/uL (4.38-5.82); RED CELL DISTRIBUTION WIDTH 14.3 % (9.4-14.8)
[2019-07-30] MEDS ORDERED: DILTIAZEM 5 MG/ML, 5ML ONE (11:55)
[2019-07-30] MEDS ORDERED: LORazepam 2 MG/ML, 1ML ONE (11:55)
[2019-07-30] MEDS ORDERED: LORazepam 2 MG/ML, 1ML IVPush ONE (12:00)
[2019-07-30 12:01] LABS: ALANINE AMINOTRANSFERASE 40 U/L (12-78); ALBUMIN 3.5 g/dL (3.4-5.0); ANION GAP 8 mmol/L (5-15); CHLORIDE 108 mmol/L (98-107); CREATININE 1.08 mg/dL (0.7-1.3)
[2019-07-30 12:05] LABS: ALKALINE PHOSPHATASE 59 U/L (45-117); BILIRUBIN,TOTAL 0.4 mg/dL (0.2-1.0); TOTAL PROTEIN 6.2 g/dL (6.4-8.2); TROPONIN I < 0.015 ng/mL (0.000-0.045)
[2019-07-30] MEDS ORDERED: SODIUM CHLORIDE 0.9% 500 ML IV ONE (12:30)
[2019-07-30 12:51] VITALS: BP 100/69
--- NOTE | 2019-07-30 14:02 | NUR ---
CARE FOR DC ONLY PROVIDED. PT DRESSED AMB BACK TO ROOM FROM BR, GAIT SLOW AND STEADY. IV DC'D BY PRIMARY RN. REVIEWED DC INSTRUCTIONS WITH PT. UNDERSTANDING VERBALIZED. PT PROVIDED WITH BUS PASS. PT LEFT AMB.
== END 2019-07-30 14:05 | disposition home or self-care (01) ==
LOC: ED 12:08
DX: I48.91 Unspecified atrial fibrillation (principal); R06.00 Dyspnea, unspecified; I11.0 Hypertensive heart disease with heart failure; I50.9 Heart failure, unspecified; I25.2 Old myocardial infarction; J44.9 Chronic obstructive pulmonary disease, unspecified; E03.9 Hypothyroidism, unspecified
CPT/HCPCS: 36415; 71045; 80053; 83880; 84484; 85025; 93005; 96374; 96375; 99284; J2060; J7040

== ENCOUNTER 2019-08-03 02:02 | Observation (INO) | payer MEDICAID ==
[~2019-08-03] VITALS: Ht 182.9 cm; Wt 112.1 kg
--- NOTE | 2019-08-03 02:55 | NUR ---
PT BIB [facility] WITH SOB AND RATE CONTROLLED AFIB. PT CALLED 911 SAYING HE WAS HAVING AN INCREASING DIFFICULTY OF WOB. PT WITH HISTORY OF CHF. DR ENGLE AT BS FOR PT HISTORY AND ASSESSMENT. PT ATTACHED TO VS MACHINES AND PACKAGE CAR DRIVER. VSS AT THIS TIME. FSBS DONE BY EMS= 140. EKG DONE AT BS. PT CHANGED INTO GOWN WITH CALL LIGHT WITHIN REACH.
[2019-08-03] MEDS ORDERED: SODIUM CHLORIDE FLUSH 10ML SYR IVF ONE (03:00)
[2019-08-03 03:25] LABS: BASOPHILS # (AUTO) 0.02 x10^3/uL (0-0.1); BASOPHILS % (AUTO) 0 % (0-1); EOSINOPHILS # (AUTO) 0.06 x10^3/uL (0-0.4); EOSINOPHILS % (AUTO) 1 % (1-7); INTERNATIONAL NORMALIZED RATIO 0.97 (0.93-1.1); LYMPHOCYTES # (AUTO) 0.61 x10^3/uL (1-3.4); LYMPHOCYTES % (AUTO) 9 % (22-44); MD NO; MEAN CORPUSCULAR HGB CONC 32.7 g/dL (33.2-36.2); MEAN CORPUSCULAR VOLUME 94.7 fL (81-97); MEAN PLATELET VOLUME 8.4 fL (7.4-10.4); MONOCYTES # (AUTO) 0.16 x10^3/uL (0.2-0.8); MONOCYTES % (AUTO) 3 % (2-9); NEUTROPHILS # (AUTO) 5.67 x10^3/uL (1.8-6.8); NEUTROPHILS % (AUTO) 87 % (42-75); PLATELET COUNT 142 x10^3/uL (130-400); PROTHROMBIN TIME 10.2 Seconds (9.6-11.5); RED BLOOD COUNT 4.55 x10^6/uL (4.38-5.82); RED CELL DISTRIBUTION WIDTH 14.8 % (9.4-14.8)
[2019-08-03 03:26] LABS: ALANINE AMINOTRANSFERASE 46 U/L (12-78); ALBUMIN 3.6 g/dL (3.4-5.0); ANION GAP 7 mmol/L (5-15); CALCIUM 8.4 mg/dL (8.5-10.1); CHLORIDE 109 mmol/L (98-107); CREATININE 1.14 mg/dL (0.7-1.3)
[2019-08-03 03:30] LABS: ALKALINE PHOSPHATASE 55 U/L (45-117); BILIRUBIN,TOTAL 0.4 mg/dL (0.2-1.0); TOTAL PROTEIN 6.3 g/dL (6.4-8.2); TROPONIN I 0.019 ng/mL (0.000-0.045)
--- NOTE | 2019-08-03 03:36 | NUR ---
ATTEMPTED IV ACCESS TIMES 2. REQ ASSISTANCE FROM 2ND RN FOR IV PLACEMENT AT THIS TIME.
[2019-08-03] MEDS ORDERED: FUROSEMIDE 40 MG/4 ML IV ONE (04:00)
[2019-08-03] MEDS ORDERED: ALBUTEROL/IPRATROPIUM 2.5MG/0.5MG, 3 ML NPPB ONE (04:00)
[2019-08-03] MEDS ORDERED: methylPREDNISolone SOD SUCC 125 MG/2 ML IV ONE (04:00)
[2019-08-03] MEDS ORDERED: FUROSEMIDE 40 MG/4 ML ONE (04:46)
[2019-08-03] MEDS ORDERED: methylPREDNISolone SOD SUCC 125 MG/2 ML ONE (04:46)
--- NOTE | 2019-08-03 04:52 | NUR ---
PT MEDICATED PER OCT. PT VSS AND UPDATED IN EMR.
--- NOTE | 2019-08-03 05:11 | NUR ---
ATTEMPTED TO CALL REPORT TO LEIGH WAGONER. PER FLOOR, RN NOT AVAILABLE AT THIS TIME AND WILL CALL THIS RN BACK.
--- NOTE | 2019-08-03 05:21 | NUR ---
REPORT OF PT TO LEIGH WAGONER. ALL QUESTIONS ANSWERED. PT UPDATED ON ROOM ASSINGMENT AND POC.
[2019-08-03 05:48] VITALS: BP 112/80
[2019-08-03] MEDS ORDERED: BUTALB/APAP/CAFFEINE 50MG/325MG/40MG PO PRN ×2 (07:30)
[2019-08-03] MEDS ORDERED: GUAIFENESIN/DM 200-20MG, 10ML UDC PO PRN (07:30)
[2019-08-03] MEDS ORDERED: CARVEDILOL 3.125 MG TABLET PO SCH (07:30)
[2019-08-03] MEDS ORDERED: ONDANSETRON ODT 4 MG PO PRN (07:30)
[2019-08-03] MEDS ORDERED: TEMAZEPAM 15 MG CAPSULE PO PRN (07:30)
[2019-08-03] MEDS ORDERED: hydrALAzine 20 MG/ML, 1ML IVPush PRN (07:30)
[2019-08-03] MEDS ORDERED: DOCUSATE 100 MG CAPSULE PO PRN (07:30)
[2019-08-03] MEDS ORDERED: ONDANSETRON 2MG/ML, 2ML IVPush PRN (07:30)
[2019-08-03] MEDS ORDERED: ACETAMINOPHEN 325 MG TABLET PO PRN (07:30)
[2019-08-03 07:38] VITALS: BP 100/67
[2019-08-03] MEDS: LACTOBACILLUS CHEW TABLET PO SCH ×3 (08:16→21:16)
[2019-08-03] MEDS: SERTRALINE 50MG TABLET PO SCH (08:16)
[2019-08-03] MEDS: DIVALPROEX 250 MG TAB.ER.24H PO SCH ×2 (08:16→21:16)
[2019-08-03] MEDS: ALLOPURINOL 300 MG TABLET PO SCH (08:16)
[2019-08-03] MEDS: APIXABAN 5 MG TABLET PO SCH ×2 (08:16→21:16)
[2019-08-03] MEDS: NICOTINE 14MG/24 HR PATCH.TD24 TD SCH (08:16)
[2019-08-03] MEDS: ARIPIPRAZOLE 10 MG TABLET PO SCH (08:17)
[2019-08-03] MEDS: POTASSIUM CHLORIDE 10 MEQ TABLET.ER PO SCH (08:17)
[2019-08-03] MEDS: LISINOPRIL 5 MG TABLET PO SCH (08:18)
[2019-08-03 08:23] VITALS: BP 108/77
[2019-08-03] MEDS: ASPIRIN 81 MG TABLET EC PO SCH (08:23)
[2019-08-03] MEDS: LEVOTHYROXINE 100 MCG TABLET PO SCH (08:23)
[2019-08-03] MEDS ORDERED: ALBUTEROL SULFATE 2.5 MG/3 ML NPPB SCH (11:00)
[2019-08-03] MEDS: INSULIN LISPRO 100 UNITS/ML, PEN SQ-INSULIN SCH ×3 (11:59→21:16)
[2019-08-03 14:24] VITALS: BP 94/61
[2019-08-03] MEDS ORDERED: ALBUTEROL/IPRATROPIUM 2.5MG/0.5MG, 3 ML NPPB SCH (15:00)
[2019-08-03] MEDS: ALBUTEROL SULFATE 2.5 MG/3 ML NPPB SCH ×2 (16:05→19:21)
[2019-08-03 17:05] VITALS: BP 102/68
[2019-08-03] MEDS: CARVEDILOL 3.125 MG TABLET PO SCH (17:36)
[2019-08-03] MEDS: BUDESONIDE 0.5 MG/2 ML INHA INH SCH (19:21)
[2019-08-03] MEDS ORDERED: SIMVASTATIN 10 MG TABLET PO SCH (21:00)
[2019-08-03] MEDS: MELATONIN 5 MG TABLET PO SCH (21:16)
[2019-08-03 22:57] VITALS: BP 97/62
[2019-08-04 00:53] VITALS: BP 92/61
[2019-08-04] MEDS: ALBUTEROL SULFATE 2.5 MG/3 ML NPPB SCH ×2 (02:05→09:00)
[2019-08-04 05:12] LABS: BASOPHILS % (AUTO) 0 % (0-1); EOSINOPHILS % (AUTO) 0 % (1-7); LYMPHOCYTES # (AUTO) 1.52 x10^3/uL (1-3.4); LYMPHOCYTES % (AUTO) 17 % (22-44); MD NO; MEAN CORPUSCULAR HEMOGLOBIN 30.8 pg (27.5-34.5); MEAN CORPUSCULAR HGB CONC 32.4 g/dL (33.2-36.2); MEAN PLATELET VOLUME 8.1 fL (7.4-10.4); MONOCYTES # (AUTO) 0.71 x10^3/uL (0.2-0.8); MONOCYTES % (AUTO) 8 % (2-9); NEUTROPHILS # (AUTO) 6.79 x10^3/uL (1.8-6.8); NEUTROPHILS % (AUTO) 75 % (42-75); PLATELET COUNT 146 x10^3/uL (130-400); RED BLOOD COUNT 3.97 x10^6/uL (4.38-5.82); RED CELL DISTRIBUTION WIDTH 14.4 % (9.4-14.8)
[2019-08-04 05:13] LABS: ANION GAP 5 mmol/L (5-15); CALCIUM 8.1 mg/dL (8.5-10.1); CHLORIDE 106 mmol/L (98-107); CREATININE 1.13 mg/dL (0.7-1.3)
[2019-08-04] MEDS: CARVEDILOL 3.125 MG TABLET PO SCH ×2 (06:00→11:22)
[2019-08-04 06:06] VITALS: BP 92/68
[2019-08-04] MEDS: LEVOTHYROXINE 100 MCG TABLET PO SCH (06:09)
[2019-08-04] MEDS: ASPIRIN 81 MG TABLET EC PO SCH (06:09)
[2019-08-04] MEDS: INSULIN LISPRO 100 UNITS/ML, PEN SQ-INSULIN SCH ×3 (07:00→16:00)
[2019-08-04] MEDS ORDERED: CALCIUM GLUCONATE 4.6 MEQ in SODIUM CHLORIDE 0.9% 50 ML IV ONE (07:30)
[2019-08-04] MEDS: LISINOPRIL 5 MG TABLET PO SCH (08:23)
[2019-08-04] MEDS: ARIPIPRAZOLE 10 MG TABLET PO SCH (08:24)
[2019-08-04] MEDS: POTASSIUM CHLORIDE 10 MEQ TABLET.ER PO SCH (08:24)
[2019-08-04] MEDS: LACTOBACILLUS CHEW TABLET PO SCH ×2 (08:24→16:00)
[2019-08-04] MEDS: NICOTINE 14MG/24 HR PATCH.TD24 TD SCH (08:24)
[2019-08-04] MEDS: DIVALPROEX 250 MG TAB.ER.24H PO SCH (08:24)
[2019-08-04] MEDS: MELATONIN 5 MG TABLET PO SCH (08:25)
[2019-08-04] MEDS: APIXABAN 5 MG TABLET PO SCH (08:25)
[2019-08-04] MEDS: ALLOPURINOL 300 MG TABLET PO SCH (08:25)
[2019-08-04] MEDS: SERTRALINE 50MG TABLET PO SCH (08:25)
[2019-08-04] MEDS: BUDESONIDE 0.5 MG/2 ML INHA INH SCH (09:00)
[2019-08-04 12:35] VITALS: BP 90/58
[2019-08-04] MEDS ORDERED: ALBUTEROL SULFATE 2.5 MG/3 ML NPPB SCH (15:00)
== END 2019-08-04 16:32 | disposition home or self-care (01) ==
LOC: ED 02:19 → INTOOBSV 04:15 → EDIP 04:15 → 4WST 06:12 → DCLOUNGE 08-04 16:22
PROVIDERS: ADMIT Family Medicine; ATTEND Family Medicine
DX: R06.02 Shortness of breath (principal); I48.91 Unspecified atrial fibrillation; J44.1 Chronic obstructive pulmonary disease with (acute) exacerbation; E03.9 Hypothyroidism, unspecified; I11.0 Hypertensive heart disease with heart failure; I50.22 Chronic systolic (congestive) heart failure; E11.65 Type 2 diabetes mellitus with hyperglycemia; F31.9 Bipolar disorder, unspecified; G31.84 Mild cognitive impairment of uncertain or unknown etiology; I25.2 Old myocardial infarction; Z86.711 Personal history of pulmonary embolism; Z79.899 Other long term (current) drug therapy; Z86.73 Personal history of transient ischemic attack (TIA), and cerebral infarction without residual deficits; Z79.01 Long term (current) use of anticoagulants; Z79.82 Long term (current) use of aspirin
CPT/HCPCS: 36415; 71045; 80048; 80053; 82962; 83735; 83880; 84484; 85025; 85610; 85730; 93005; 94640; 96365; 96372; 96375; 99284; G0378; J0610; J1815; J1940; J2930; J7613; J7620; J7626; Q0177

== ENCOUNTER 2019-08-05 10:09 | Inpatient (IN) | payer MEDICAID ==
[~2019-08-05] VITALS: Ht 182.9 cm; Wt 111.0 kg
[2019-08-05] MEDS ORDERED: SODIUM CHLORIDE 0.9% 1,000ML IVBOLUS ONE (11:30)
[2019-08-05] MEDS ORDERED: METOPROLOL 1 MG/ML, 5ML IVPush PRN (11:30)
[2019-08-05] MEDS ORDERED: methylPREDNISolone SOD SUCC 125 MG/2 ML IV ONE (11:30)
[2019-08-05] MEDS ORDERED: ALBUTEROL/IPRATROPIUM 2.5MG/0.5MG, 3 ML NPPB ONE (11:30)
[2019-08-05] MEDS ORDERED: SODIUM CHLORIDE FLUSH 10ML SYR IVF ONE (11:30)
[2019-08-05] MEDS ORDERED: METOPROLOL 1 MG/ML, 5ML ONE (11:42)
[2019-08-05] MEDS ORDERED: methylPREDNISolone SOD SUCC 125 MG/2 ML ONE (11:42)
--- NOTE | 2019-08-05 12:19 | NUR ---
TASK RN: PT RESTING ON GURNEY. NADN. ANS. MASTER GLAZIER MADE AWARE OF NEED FOR US GUIDED PIV.
[2019-08-05 13:26] LABS: BASOPHILS # (AUTO) 0.02 x10^3/uL (0-0.1); BASOPHILS % (AUTO) 0 % (0-1); EOSINOPHILS # (AUTO) 0.02 x10^3/uL (0-0.4); EOSINOPHILS % (AUTO) 0 % (1-7); LYMPHOCYTES # (AUTO) 1.83 x10^3/uL (1-3.4); LYMPHOCYTES % (AUTO) 25 % (22-44); MD NO; MEAN CORPUSCULAR HGB CONC 32.4 g/dL (33.2-36.2); MEAN CORPUSCULAR VOLUME 95.4 fL (81-97); MEAN PLATELET VOLUME 7.8 fL (7.4-10.4); MONOCYTES # (AUTO) 0.47 x10^3/uL (0.2-0.8); MONOCYTES % (AUTO) 6 % (2-9); NEUTROPHILS # (AUTO) 5.02 x10^3/uL (1.8-6.8); NEUTROPHILS % (AUTO) 68 % (42-75); PLATELET COUNT 166 x10^3/uL (130-400); RED BLOOD COUNT 4.64 x10^6/uL (4.38-5.82); RED CELL DISTRIBUTION WIDTH 14.7 % (9.4-14.8)
[2019-08-05 13:35] LABS: INTERNATIONAL NORMALIZED RATIO 0.98 (0.93-1.1); PROTHROMBIN TIME 10.3 Seconds (9.6-11.5)
[2019-08-05 13:36] LABS: ALANINE AMINOTRANSFERASE 49 U/L (12-78); ALBUMIN 3.9 g/dL (3.4-5.0); ANION GAP 5 mmol/L (5-15); CALCIUM 8.8 mg/dL (8.5-10.1); CHLORIDE 106 mmol/L (98-107); CREATININE 1.22 mg/dL (0.7-1.3)
[2019-08-05 13:38] LABS: ALKALINE PHOSPHATASE 57 U/L (45-117); BILIRUBIN,TOTAL 0.5 mg/dL (0.2-1.0); TOTAL PROTEIN 6.5 g/dL (6.4-8.2)
--- NOTE | 2019-08-05 16:00 | NUR ---
REPORT GIVEN TO LEIGH PRESTON. PLAN OF CARE DISCUSSED.
[2019-08-05 16:30] VITALS: BP 121/88
[2019-08-05] MEDS ORDERED: DILTIAZEM 5 MG/ML, 5ML IVPush PRN (18:00)
[2019-08-05] MEDS ORDERED: TRAZODONE 50MG TABLET PO PRN (18:00)
[2019-08-05] MEDS ORDERED: ACETAMINOPHEN 325 MG TABLET PO PRN (18:00)
[2019-08-05] MEDS ORDERED: ONDANSETRON ODT 4 MG PO PRN (18:00)
[2019-08-05] MEDS ORDERED: BUTALB/APAP/CAFFEINE 50MG/325MG/40MG PO PRN ×2 (18:00)
[2019-08-05] MEDS ORDERED: ONDANSETRON 2MG/ML, 2ML IVPush PRN (18:00)
[2019-08-05] MEDS ORDERED: POLYETHYLENE GLYCOL 17 GM PACKET PO PRN (18:00)
[2019-08-05] MEDS ORDERED: GUAIFENESIN/DM 200-20MG, 10ML UDC PO PRN (18:00)
[2019-08-05] MEDS ORDERED: NICOTINE 14MG/24 HR PATCH.TD24 TD SCH (18:00)
[2019-08-05 19:10] VITALS: BP 114/78
[2019-08-05 20:00] VITALS: BP 138/67
[2019-08-05] MEDS: TRAZODONE 150MG TABLET PO SCH (20:56)
[2019-08-05] MEDS: LACTOBACILLUS CHEW TABLET PO SCH (20:56)
[2019-08-05] MEDS: CARVEDILOL 3.125 MG TABLET PO SCH (20:56)
[2019-08-05] MEDS: APIXABAN 5 MG TABLET PO SCH (20:56)
[2019-08-05] MEDS: DIVALPROEX 250 MG TAB.ER.24H PO SCH (20:56)
[2019-08-05] MEDS: SIMVASTATIN 5 MG TABLET PO SCH (20:57)
[2019-08-05] MEDS: NICOTINE 14MG/24 HR PATCH.TD24 TD SCH (20:57)
[2019-08-05] MEDS ORDERED: ALBUTEROL SULFATE 2.5 MG/3 ML NPPB PRN (21:00)
[2019-08-05] MEDS: ALBUTEROL SULFATE 2.5 MG/3 ML NPPB SCH (21:00)
[2019-08-05] MEDS: LACTULOSE 10 GM/15 ML UDC PO SCH (21:00)
[2019-08-05] MEDS: BUDESONIDE 0.5 MG/2 ML INHA INH SCH (21:00)
[2019-08-05 21:09] VITALS: BP 138/67
[2019-08-06] VITALS (7 sets, daily range): BP systolic 85–113; BP diastolic 55–73
[2019-08-06] MEDS: ALBUTEROL SULFATE 2.5 MG/3 ML NPPB SCH ×3 (03:30→22:50)
[2019-08-06 05:24] LABS: BASOPHILS # (AUTO) 0.01 x10^3/uL (0-0.1); BASOPHILS % (AUTO) 0 % (0-1); EOSINOPHILS % (AUTO) 0 % (1-7); LYMPHOCYTES # (AUTO) 0.65 x10^3/uL (1-3.4); LYMPHOCYTES % (AUTO) 10 % (22-44); MD NO; MEAN CORPUSCULAR HGB CONC 32.4 g/dL (33.2-36.2); MEAN CORPUSCULAR VOLUME 95.7 fL (81-97); MEAN PLATELET VOLUME 8.4 fL (7.4-10.4); MONOCYTES # (AUTO) 0.14 x10^3/uL (0.2-0.8); MONOCYTES % (AUTO) 2 % (2-9); NEUTROPHILS # (AUTO) 5.45 x10^3/uL (1.8-6.8); NEUTROPHILS % (AUTO) 87 % (42-75); PLATELET COUNT 158 x10^3/uL (130-400); RED BLOOD COUNT 4.14 x10^6/uL (4.38-5.82); RED CELL DISTRIBUTION WIDTH 14.5 % (9.4-14.8)
[2019-08-06 05:31] LABS: ANION GAP 3 mmol/L (5-15); CALCIUM 8.4 mg/dL (8.5-10.1); CHLORIDE 107 mmol/L (98-107); CREATININE 0.97 mg/dL (0.7-1.3)
[2019-08-06] MEDS: ASPIRIN 81 MG TABLET EC PO SCH (05:58)
[2019-08-06] MEDS: LEVOTHYROXINE 100 MCG TABLET PO SCH (05:59)
[2019-08-06] MEDS: CARVEDILOL 3.125 MG TABLET PO SCH ×2 (05:59→16:47)
[2019-08-06] MEDS: DIVALPROEX 250 MG TAB.ER.24H PO SCH ×2 (08:41→20:31)
[2019-08-06] MEDS: LACTOBACILLUS CHEW TABLET PO SCH ×2 (08:41→16:47)
[2019-08-06] MEDS: LISINOPRIL 5 MG TABLET PO SCH (08:41)
[2019-08-06] MEDS: POTASSIUM CHLORIDE 20 MEQ TAB.ER.PRT PO SCH (08:41)
[2019-08-06] MEDS: SERTRALINE 50MG TABLET PO SCH (08:41)
[2019-08-06] MEDS: APIXABAN 5 MG TABLET PO SCH ×2 (08:41→20:31)
[2019-08-06] MEDS: ALLOPURINOL 300 MG TABLET PO SCH (08:41)
[2019-08-06] MEDS: ARIPIPRAZOLE 10 MG TABLET PO SCH (08:42)
[2019-08-06] MEDS: LACTULOSE 10 GM/15 ML UDC PO SCH ×2 (08:42→20:33)
[2019-08-06] MEDS: BUDESONIDE 0.5 MG/2 ML INHA INH SCH ×2 (09:00→22:50)
[2019-08-06] MEDS ORDERED: MELATONIN 5 MG TABLET PO SCH (09:00)
[2019-08-06] MEDS ORDERED: TEMPLATE NON-FORMULARY MED. (Fluticasone/Salmeterol** (Advair 250-50 Diskus**) 1 PUFF) INH SCH (09:00)
[2019-08-06] MEDS: TRAZODONE 150MG TABLET PO SCH (20:31)
[2019-08-06] MEDS: NICOTINE 14MG/24 HR PATCH.TD24 TD SCH (20:33)
[2019-08-06] MEDS: SIMVASTATIN 5 MG TABLET PO SCH (20:45)
[2019-08-07] MEDS: LACTOBACILLUS CHEW TABLET PO SCH ×4 (00:06→20:51)
[2019-08-07 01:55] VITALS: BP 113/82
[2019-08-07] MEDS: ALBUTEROL SULFATE 2.5 MG/3 ML NPPB SCH ×4 (03:06→20:08)
[2019-08-07 05:44] VITALS: BP 91/64
[2019-08-07] MEDS: ASPIRIN 81 MG TABLET EC PO SCH (05:49)
[2019-08-07] MEDS: LEVOTHYROXINE 100 MCG TABLET PO SCH (05:49)
[2019-08-07] MEDS: BUDESONIDE 0.5 MG/2 ML INHA INH SCH ×2 (08:00→20:08)
[2019-08-07] MEDS: ARIPIPRAZOLE 10 MG TABLET PO SCH (09:07)
[2019-08-07] MEDS: POTASSIUM CHLORIDE 20 MEQ TAB.ER.PRT PO SCH (09:07)
[2019-08-07] MEDS: ALLOPURINOL 300 MG TABLET PO SCH (09:07)
[2019-08-07] MEDS: SERTRALINE 50MG TABLET PO SCH (09:08)
[2019-08-07] MEDS: DIVALPROEX 250 MG TAB.ER.24H PO SCH ×2 (09:08→20:51)
[2019-08-07] MEDS: CARVEDILOL 3.125 MG TABLET PO SCH ×2 (09:08→20:51)
[2019-08-07] MEDS: APIXABAN 5 MG TABLET PO SCH ×2 (09:08→20:51)
[2019-08-07] MEDS: LACTULOSE 10 GM/15 ML UDC PO SCH ×2 (09:08→20:52)
[2019-08-07 09:10] VITALS: BP 92/65
[2019-08-07] MEDS: LISINOPRIL 5 MG TABLET PO SCH (09:12)
[2019-08-07] MEDS ORDERED: DIGOXIN 0.25 MG/ML, 2ML IVPush ONE (10:30)
[2019-08-07 13:54] VITALS: BP 116/78
[2019-08-07] MEDS: DIGOXIN 0.25 MG TABLET PO SCH ×2 (17:01→22:25)
[2019-08-07 20:35] VITALS: BP 104/66
[2019-08-07] MEDS: TRAZODONE 150MG TABLET PO SCH (20:51)
[2019-08-07] MEDS: SIMVASTATIN 5 MG TABLET PO SCH (20:52)
[2019-08-07] MEDS: NICOTINE 14MG/24 HR PATCH.TD24 TD SCH (20:52)
[2019-08-07] MEDS: MELATONIN 5 MG TABLET PO SCH (20:52)
[2019-08-07] MEDS ORDERED: ZOLPIDEM 10MG TABLET PO PRN (21:00)
[2019-08-08 00:51] VITALS: BP 120/77
[2019-08-08] MEDS: ALBUTEROL SULFATE 2.5 MG/3 ML NPPB SCH ×4 (02:50→21:00)
[2019-08-08] MEDS: CARVEDILOL 3.125 MG TABLET PO SCH ×2 (05:42→16:53)
[2019-08-08] MEDS: LEVOTHYROXINE 100 MCG TABLET PO SCH (05:43)
[2019-08-08] MEDS: ASPIRIN 81 MG TABLET EC PO SCH (05:43)
[2019-08-08 07:17] VITALS: BP 100/70
[2019-08-08] MEDS: LACTOBACILLUS CHEW TABLET PO SCH ×3 (09:07→20:36)
[2019-08-08] MEDS: LISINOPRIL 5 MG TABLET PO SCH (09:07)
[2019-08-08] MEDS: SERTRALINE 50MG TABLET PO SCH (09:07)
[2019-08-08] MEDS: APIXABAN 5 MG TABLET PO SCH ×2 (09:07→20:37)
[2019-08-08] MEDS: ARIPIPRAZOLE 10 MG TABLET PO SCH (09:07)
[2019-08-08] MEDS: DIVALPROEX 250 MG TAB.ER.24H PO SCH ×2 (09:07→20:37)
[2019-08-08] MEDS: DIGOXIN 0.125 MG TABLET PO SCH (09:08)
[2019-08-08] MEDS: POTASSIUM CHLORIDE 20 MEQ TAB.ER.PRT PO SCH (09:08)
[2019-08-08] MEDS: LACTULOSE 10 GM/15 ML UDC PO SCH ×2 (09:08→20:35)
[2019-08-08] MEDS: ALLOPURINOL 300 MG TABLET PO SCH (09:08)
[2019-08-08] MEDS: BUDESONIDE 0.5 MG/2 ML INHA INH SCH ×2 (09:08→15:26)
[2019-08-08 12:59] VITALS: BP 95/62
[2019-08-08 19:40] VITALS: BP 104/70
[2019-08-08] MEDS: NICOTINE 14MG/24 HR PATCH.TD24 TD SCH (20:36)
[2019-08-08] MEDS: TRAZODONE 150MG TABLET PO SCH (20:37)
[2019-08-08] MEDS: SIMVASTATIN 5 MG TABLET PO SCH (20:37)
[2019-08-08] MEDS: MELATONIN 5 MG TABLET PO SCH (20:37)
[2019-08-09] VITALS (7 sets, daily range): BP systolic 87–125; BP diastolic 41–88
[2019-08-09] MEDS: ALBUTEROL SULFATE 2.5 MG/3 ML NPPB SCH ×4 (02:44→20:26)
[2019-08-09] MEDS: ASPIRIN 81 MG TABLET EC PO SCH (05:50)
[2019-08-09] MEDS: LEVOTHYROXINE 100 MCG TABLET PO SCH (05:50)
[2019-08-09] MEDS: CARVEDILOL 3.125 MG TABLET PO SCH ×2 (05:51→17:53)
[2019-08-09] MEDS: BUDESONIDE 0.5 MG/2 ML INHA INH SCH ×2 (09:00→20:26)
[2019-08-09] MEDS: DIVALPROEX 250 MG TAB.ER.24H PO SCH ×2 (09:32→22:20)
[2019-08-09] MEDS: SERTRALINE 50MG TABLET PO SCH (09:32)
[2019-08-09] MEDS: DIGOXIN 0.125 MG TABLET PO SCH (09:32)
[2019-08-09] MEDS: ARIPIPRAZOLE 10 MG TABLET PO SCH (09:32)
[2019-08-09] MEDS: LACTULOSE 10 GM/15 ML UDC PO SCH ×4 (09:32→22:21)
[2019-08-09] MEDS: LACTOBACILLUS CHEW TABLET PO SCH ×3 (09:32→22:20)
[2019-08-09] MEDS: APIXABAN 5 MG TABLET PO SCH ×2 (09:33→22:21)
[2019-08-09] MEDS: LISINOPRIL 5 MG TABLET PO SCH (09:33)
[2019-08-09] MEDS: ALLOPURINOL 300 MG TABLET PO SCH (09:33)
[2019-08-09] MEDS: POTASSIUM CHLORIDE 20 MEQ TAB.ER.PRT PO SCH (09:33)
[2019-08-09] MEDS ORDERED: TIOT18CA INH (10:16)
[2019-08-09] MEDS ORDERED: GUAI5SYR PO (10:16)
[2019-08-09] MEDS ORDERED: DIGO125T PO (10:16)
[2019-08-09] MEDS ORDERED: POLY17PO5 PO (10:16)
[2019-08-09] MEDS ORDERED: ONDA4TAB13 PO (10:16)
[2019-08-09] MEDS ORDERED: MELA5TAB14 PO (10:16)
[2019-08-09] MEDS ORDERED: ALBU2.5V NPPB (10:16)
[2019-08-09] MEDS: TRAZODONE 150MG TABLET PO SCH (22:20)
[2019-08-09] MEDS: MELATONIN 5 MG TABLET PO SCH (22:20)
[2019-08-09] MEDS: NICOTINE 14MG/24 HR PATCH.TD24 TD SCH (22:20)
[2019-08-09] MEDS: SIMVASTATIN 5 MG TABLET PO SCH (22:21)
[2019-08-10 02:00] VITALS: BP 99/65
[2019-08-10] MEDS: ALBUTEROL SULFATE 2.5 MG/3 ML NPPB SCH ×3 (03:00→16:00)
[2019-08-10] MEDS: LEVOTHYROXINE 100 MCG TABLET PO SCH (06:19)
[2019-08-10] MEDS: ASPIRIN 81 MG TABLET EC PO SCH (06:19)
[2019-08-10 06:24] VITALS: BP 94/60
[2019-08-10 07:51] VITALS: BP 118/83
[2019-08-10] MEDS: LACTULOSE 10 GM/15 ML UDC PO SCH (08:56)
[2019-08-10] MEDS: APIXABAN 5 MG TABLET PO SCH ×2 (09:08→18:02)
[2019-08-10] MEDS: SERTRALINE 50MG TABLET PO SCH (09:09)
[2019-08-10] MEDS: LACTOBACILLUS CHEW TABLET PO SCH ×2 (09:09→18:02)
[2019-08-10] MEDS: DIGOXIN 0.125 MG TABLET PO SCH (09:09)
[2019-08-10] MEDS: DIVALPROEX 250 MG TAB.ER.24H PO SCH ×2 (09:10→18:03)
[2019-08-10] MEDS: ARIPIPRAZOLE 10 MG TABLET PO SCH (09:10)
[2019-08-10] MEDS: ALLOPURINOL 300 MG TABLET PO SCH (09:10)
[2019-08-10] MEDS: LISINOPRIL 5 MG TABLET PO SCH (09:11)
[2019-08-10] MEDS: POTASSIUM CHLORIDE 20 MEQ TAB.ER.PRT PO SCH (09:11)
[2019-08-10] MEDS: CARVEDILOL 3.125 MG TABLET PO SCH ×2 (09:25→18:01)
[2019-08-10] MEDS: BUDESONIDE 0.5 MG/2 ML INHA INH SCH (09:56)
[2019-08-10 14:37] VITALS: BP 89/64
[2019-08-10] MEDS: SIMVASTATIN 5 MG TABLET PO SCH (18:00)
[2019-08-10] MEDS: MELATONIN 5 MG TABLET PO SCH (18:04)
== END 2019-08-10 19:37 | disposition home or self-care (01) | DRG 140 ==
LOC: ED 11:40 → EDIP 15:08 → 5SO 16:17
PROVIDERS: ADMIT Internal Medicine; ATTEND Internal Medicine
DX: J44.1 Chronic obstructive pulmonary disease with (acute) exacerbation (principal); J96.91 Respiratory failure, unspecified with hypoxia; I50.9 Heart failure, unspecified; E03.9 Hypothyroidism, unspecified; I11.0 Hypertensive heart disease with heart failure; E11.65 Type 2 diabetes mellitus with hyperglycemia; F17.200 Nicotine dependence, unspecified, uncomplicated; F31.9 Bipolar disorder, unspecified; I25.2 Old myocardial infarction; I48.0 Paroxysmal atrial fibrillation; Z86.711 Personal history of pulmonary embolism; Z86.73 Personal history of transient ischemic attack (TIA), and cerebral infarction without residual deficits; Z91.14 Patient's other noncompliance with medication regimen
CPT/HCPCS: 36415; 71045; 80048; 80053; 83735; 85025; 85610; 85730; 93005; 94640; 96360; G0378; J7613; J7620; J7626; J1160; J2930; J7030; Q0177

== ENCOUNTER 2019-08-25 08:45 | Observation (INO) | payer MEDICAID ==
[~2019-08-25] VITALS: Ht 182.9 cm; Wt 103.7 kg
[~2019-08-25 08:45] MED LIST changes: +ALBU2.5V NPPB; +GUAI5SYR PO; +ONDA4TAB13 PO; +POLY17PO5 PO; +TIOT18CA INH
--- NOTE | 2019-08-25 08:59 | NUR ---
BIB EMS FOR C/O SOB STARTED WHEN HE AWOKE THIS AM AT 0730. HX CHF, COPD, ASTHMA. PT STATES HE DID 1 PUFF ALBULTEROL INHALER AND RECV'D 1 ALBUTEROL TX FROM EMS SATING 95-98%. FEELINGS OF MALAISE AND GEN WEAKNESS. PT SPEAKING IN FULL SENTENCES. PT PLACED ON 2L NC BASELINE RA. PT RESTING ON GURNEY. NADN. MONITORS APPLIED. REPORT GIVEN TO CHRIS Ayala. RN.
--- NOTE | 2019-08-25 09:01 | NUR ---
REPORT FROM SHONA. PT RESTING, MONITORED. NO NEEDS AT THIS TIME.
[2019-08-25] MEDS ORDERED: ASPIRIN 81 MG TABLET CHEW PO ONE (09:30)
[2019-08-25] MEDS ORDERED: ASPIRIN 81 MG TABLET CHEW ONE (09:51)
[2019-08-25 09:54] LABS: BASOPHILS # (AUTO) 0.03 x10^3/uL (0-0.1); BASOPHILS % (AUTO) 1 % (0-1); EOSINOPHILS % (AUTO) 2 % (1-7); LYMPHOCYTES # (AUTO) 1.43 x10^3/uL (1-3.4); LYMPHOCYTES % (AUTO) 25 % (22-44); MD NO; MEAN CORPUSCULAR HEMOGLOBIN 30.3 pg (27.5-34.5); MEAN CORPUSCULAR HGB CONC 32.4 g/dL (33.2-36.2); MEAN CORPUSCULAR VOLUME 93.6 fL (81-97); MEAN PLATELET VOLUME 8.9 fL (7.4-10.4); MONOCYTES % (AUTO) 9 % (2-9); NEUTROPHILS # (AUTO) 3.64 x10^3/uL (1.8-6.8); NEUTROPHILS % (AUTO) 64 % (42-75); PLATELET COUNT 144 x10^3/uL (130-400); RED BLOOD COUNT 4.87 x10^6/uL (4.38-5.82); RED CELL DISTRIBUTION WIDTH 14.4 % (9.4-14.8)
[2019-08-25 10:02] LABS: ALANINE AMINOTRANSFERASE 32 U/L (12-78); ALBUMIN 3.6 g/dL (3.4-5.0); ANION GAP 6 mmol/L (5-15); CHLORIDE 110 mmol/L (98-107); CREATININE 1.02 mg/dL (0.7-1.3)
[2019-08-25 10:06] LABS: ALKALINE PHOSPHATASE 63 U/L (45-117); BILIRUBIN,TOTAL 0.4 mg/dL (0.2-1.0); TOTAL PROTEIN 6.5 g/dL (6.4-8.2); TROPONIN I < 0.015 ng/mL (0.000-0.045)
--- NOTE | 2019-08-25 11:00 | NUR ---
GIVEN WARM BLANKET AND WATER. IV IN PROCESS. POC FOR ADMIT. NO FUTHER NEEDS AT THIS TIME. VS STABLE
[2019-08-25] MEDS ORDERED: GUAIFENESIN/DM 100-10MG, 5ML UDC PO PRN (12:00)
[2019-08-25] MEDS ORDERED: LOPERAMIDE 2 MG CAPSULE PO PRN (12:00)
[2019-08-25] MEDS ORDERED: ALBUTEROL SULFATE 2.5 MG/3 ML NPPB PRN (12:00)
[2019-08-25] MEDS ORDERED: ACETAMINOPHEN 325 MG TABLET PO PRN (12:00)
[2019-08-25] MEDS ORDERED: ONDANSETRON ODT 4 MG PO PRN (12:00)
--- NOTE | 2019-08-25 12:15 | NUR ---
REPORT TO CARMELO
[2019-08-25 12:59] VITALS: BP 107/68
[2019-08-25] MEDS: NICOTINE 14MG/24 HR PATCH.TD24 TD SCH (13:43)
[2019-08-25] MEDS: DOXYCYCLINE 100MG TABLET PO SCH ×2 (13:44→19:59)
[2019-08-25] MEDS: BUSPIRONE 5 MG TABLET PO SCH ×3 (13:44→20:00)
[2019-08-25] MEDS: methylPREDNISolone SOD SUCC 40 MG/ML IV SCH ×2 (13:44→19:59)
[2019-08-25] MEDS ORDERED: ALBUTEROL/IPRATROPIUM 2.5MG/0.5MG, 3 ML ONE (14:02)
[2019-08-25] MEDS: ALBUTEROL/IPRATROPIUM 2.5MG/0.5MG, 3 ML HHN SCH (14:09)
[2019-08-25 15:29] VITALS: BP 90/66
[2019-08-25 15:50] LABS: TROPONIN I < 0.015 ng/mL (0.000-0.045)
[2019-08-25] MEDS: LACTOBACILLUS CHEW TABLET PO SCH ×2 (17:20→19:59)
[2019-08-25] MEDS: CARVEDILOL 3.125 MG TABLET PO SCH ×2 (17:21→17:28)
[2019-08-25 19:27] VITALS: BP 108/69
[2019-08-25] MEDS ORDERED: SIMVASTATIN 10 MG TABLET ONE (19:50)
[2019-08-25] MEDS: APIXABAN 5 MG TABLET PO SCH (20:00)
[2019-08-25] MEDS: DIVALPROEX 250 MG TAB.ER.24H PO SCH (20:02)
[2019-08-25] MEDS ORDERED: SIMVASTATIN 5 MG TABLET PO SCH (21:00)
[2019-08-25] MEDS ORDERED: TRAZODONE 150MG TABLET PO SCH (21:00)
[2019-08-25] MEDS ORDERED: MELATONIN 5 MG TABLET PO SCH (21:00)
[2019-08-26 00:23] VITALS: BP 98/62
[2019-08-26] MEDS: ALBUTEROL/IPRATROPIUM 2.5MG/0.5MG, 3 ML HHN SCH ×3 (03:12→14:03)
[2019-08-26] MEDS: BUDESONIDE 0.5 MG/2 ML INHA NPPB SCH ×2 (03:12→06:51)
[2019-08-26] MEDS: methylPREDNISolone SOD SUCC 40 MG/ML IV SCH (03:45)
[2019-08-26 05:17] VITALS: BP 95/60
[2019-08-26] MEDS: CARVEDILOL 3.125 MG TABLET PO SCH (05:17)
[2019-08-26 05:31] LABS: CHLORIDE 106 mmol/L (98-107)
[2019-08-26 05:35] LABS: ANION GAP 8 mmol/L (5-15); CALCIUM 8.8 mg/dL (8.5-10.1); CREATININE 1.23 mg/dL (0.7-1.3)
[2019-08-26 05:42] LABS: BASOPHILS # (AUTO) 0.01 x10^3/uL (0-0.1); BASOPHILS % (AUTO) 0 % (0-1); EOSINOPHILS % (AUTO) 0 % (1-7); LYMPHOCYTES # (AUTO) 0.89 x10^3/uL (1-3.4); LYMPHOCYTES % (AUTO) 11 % (22-44); MD NO; MEAN CORPUSCULAR HEMOGLOBIN 30.6 pg (27.5-34.5); MEAN CORPUSCULAR HGB CONC 32.9 g/dL (33.2-36.2); MEAN CORPUSCULAR VOLUME 93.2 fL (81-97); MEAN PLATELET VOLUME 9.3 fL (7.4-10.4); MONOCYTES # (AUTO) 0.23 x10^3/uL (0.2-0.8); MONOCYTES % (AUTO) 3 % (2-9); NEUTROPHILS # (AUTO) 7.08 x10^3/uL (1.8-6.8); NEUTROPHILS % (AUTO) 86 % (42-75); PLATELET COUNT 152 x10^3/uL (130-400); RED BLOOD COUNT 4.18 x10^6/uL (4.38-5.82); RED CELL DISTRIBUTION WIDTH 14.2 % (9.4-14.8)
[2019-08-26] MEDS ORDERED: ASPIRIN 81 MG TABLET EC PO SCH (06:00)
[2019-08-26] MEDS ORDERED: LEVOTHYROXINE 100 MCG TABLET PO SCH (06:00)
[2019-08-26] MEDS ORDERED: LISINOPRIL 5 MG TABLET PO SCH (09:00)
[2019-08-26] MEDS ORDERED: SERTRALINE 50MG TABLET PO SCH (09:00)
[2019-08-26] MEDS ORDERED: ALLOPURINOL 300 MG TABLET PO SCH (09:00)
[2019-08-26] MEDS ORDERED: DIGOXIN 0.125 MG TABLET PO SCH (09:00)
[2019-08-26] MEDS ORDERED: TEMPLATE NON-FORMULARY MED. (Fluticasone/Salmeterol** (Advair 250-50 Diskus**) 1 PUFF) INH SCH (09:00)
[2019-08-26] MEDS ORDERED: ARIPIPRAZOLE 10 MG TABLET PO SCH (09:00)
[2019-08-26] MEDS ORDERED: TEMPLATE NON-FORMULARY MED. (Tiotropium Bromide** (Spiriva**) 18 MCG) INH SCH (09:00)
[2019-08-26 10:01] VITALS: BP 103/70
[2019-08-26] MEDS: LACTOBACILLUS CHEW TABLET PO SCH ×2 (10:06→16:00)
[2019-08-26] MEDS: DOXYCYCLINE 100MG TABLET PO SCH (10:06)
[2019-08-26] MEDS: APIXABAN 5 MG TABLET PO SCH (10:06)
[2019-08-26] MEDS: DIVALPROEX 250 MG TAB.ER.24H PO SCH (10:06)
[2019-08-26] MEDS: BUSPIRONE 5 MG TABLET PO SCH ×2 (10:07→16:00)
[2019-08-26] MEDS ORDERED: BUSP5TAB2 PO (10:23)
[2019-08-26] MEDS ORDERED: PRED20TA PO (10:23)
[2019-08-26] MEDS ORDERED: DOXY100T PO (10:23)
[2019-08-26] MEDS: NICOTINE 14MG/24 HR PATCH.TD24 TD SCH (12:59)
[2019-08-26] MEDS ORDERED: SIMVASTATIN 10 MG TABLET PO SCH (21:00)
== END 2019-08-26 17:58 | disposition home or self-care (01) ==
LOC: ED 10:48 → UNDOADMOB 11:02 → EDIP 11:02 → INTOOBSV 11:02 → SUATTDRO 11:08 → EDIP 11:33 → 3N 12:35
PROVIDERS: ADMIT Hospitalist; ATTEND Hospitalist
DX: J96.01 Acute respiratory failure with hypoxia (principal); J44.1 Chronic obstructive pulmonary disease with (acute) exacerbation; I25.10 Atherosclerotic heart disease of native coronary artery without angina pectoris; I11.0 Hypertensive heart disease with heart failure; I50.22 Chronic systolic (congestive) heart failure; E03.9 Hypothyroidism, unspecified; I48.20 Chronic atrial fibrillation, unspecified; F41.1 Generalized anxiety disorder; F31.9 Bipolar disorder, unspecified; I26.99 Other pulmonary embolism without acute cor pulmonale; G31.84 Mild cognitive impairment of uncertain or unknown etiology; E11.9 Type 2 diabetes mellitus without complications; I25.2 Old myocardial infarction; M10.9 Gout, unspecified; Z86.718 Personal history of other venous thrombosis and embolism; Z79.01 Long term (current) use of anticoagulants; Z86.73 Personal history of transient ischemic attack (TIA), and cerebral infarction without residual deficits
CPT/HCPCS: 36415; 71045; 80048; 80053; 80162; 83735; 83880; 84100; 84484; 85025; 93005; 94640; 96374; 96376; 99284; G0378; J2920; J7620; J7626; Q0177

== ENCOUNTER 2019-09-21 07:16 | Emergency (ER) | payer MEDICAID ==
[~2019-09-21] VITALS: Ht 182.9 cm; Wt 113.0 kg
[~2019-09-21 07:16] MED LIST changes: +BUSP5TAB2 PO; -DIGO125T PO; +DIGO125T85 PO; +PRED20TA PO; -TRAZ-137 PO; +TRAZ-175 PO
[2019-09-21] MEDS ORDERED: MAALOX/HYOSCYAMINE/LIDOCAINE 45 ML BTL PO ONE (07:30)
[2019-09-21] MEDS ORDERED: MAALOX/HYOSCYAMINE/LIDOCAINE 45 ML BTL ONE (07:32)
--- NOTE | 2019-09-21 07:46 | NUR ---
PT BIB [facility], PT WITH C/O CP SUBSTERNAL BEGINNING AFTER HE WOKE THIS AM, PT STATES PAIN 5/10 AT THIS TIME, PT MEDICATED WITH [facility] HYDROGRAPHICAL TECHNICAL OFFICER. PER EMS REPORT PT WAS NOT WEARING HOME O2 WHEN THEY ARRIVED, PT PLACED ON HOME DOSE OF 2L NC AND NOW SATING 96%, PREVIOUSLY 88% ON RA. PT WITH HX OF AFIB/PE, ON ELIQUIS. PT PLACED ON CARD MONITOR, BP, CONT PULSE OX.
[2019-09-21 08:04] LABS: ALANINE AMINOTRANSFERASE 24 U/L (12-78); ALBUMIN 3.1 g/dL (3.4-5.0); ANION GAP 8 mmol/L (5-15); CALCIUM 8.6 mg/dL (8.5-10.1); CHLORIDE 110 mmol/L (98-107); CREATININE 0.92 mg/dL (0.7-1.3)
[2019-09-21 08:09] LABS: ALKALINE PHOSPHATASE 78 U/L (45-117); BASOPHILS # (AUTO) 0.03 x10^3/uL (0-0.1); BASOPHILS % (AUTO) 1 % (0-1); BILIRUBIN,TOTAL 0.5 mg/dL (0.2-1.0); EOSINOPHILS # (AUTO) 0.15 x10^3/uL (0-0.4); EOSINOPHILS % (AUTO) 3 % (1-7); LYMPHOCYTES % (AUTO) 25 % (22-44); MD NO; MEAN CORPUSCULAR HEMOGLOBIN 30.1 pg (27.5-34.5); MEAN CORPUSCULAR HGB CONC 32.7 g/dL (33.2-36.2); MEAN CORPUSCULAR VOLUME 92.1 fL (81-97); MEAN PLATELET VOLUME 8.8 fL (7.4-10.4); MONOCYTES # (AUTO) 0.43 x10^3/uL (0.2-0.8); MONOCYTES % (AUTO) 8 % (2-9); NEUTROPHILS # (AUTO) 3.64 x10^3/uL (1.8-6.8); NEUTROPHILS % (AUTO) 65 % (42-75); PLATELET COUNT 151 x10^3/uL (130-400); RED BLOOD COUNT 4.37 x10^6/uL (4.38-5.82); TROPONIN I < 0.015 ng/mL (0.000-0.045)
--- NOTE | 2019-09-21 08:51 | NUR ---
PT RESTING ON GURNEY AT THIS TIME, MEDICATED PER MAR WITH STATED RELEIF FROM PT, PT PAIN 3/10 DOWN FROM 5/10 AT THIS TIME, ERMD IN TO UPDATE PT ON POC, VSS AT THIS TIME. PLAN FOR REPEAT TROP AT 1030
--- NOTE | 2019-09-21 09:39 | NUR ---
PT RESTING ON BED, UPDATED ON POC AGAIN. AMBULATED TO BR WITH STEADY GAIT. PT WITH BM. PT NOW BACK TO [facility]. VSS, NAD NOTED
--- NOTE | 2019-09-21 10:00 | NUR ---
REPORT RC'VD FROM HERBER ABRAHAM AND CARE OF PT ASSUMED. PT RESTING IN GURNEY, AWAKENS EASILY. UNDERSTANDS POC. PT DENIES NEEDS AT THIS TIME, NO S/S OF DISTRESS.
[2019-09-21 10:37] VITALS: BP 115/80
--- NOTE | 2019-09-21 10:45 | NUR ---
REPEAT TROP BEING DRAWN BY LAB.
--- NOTE | 2019-09-21 11:05 | NUR ---
REPEAT EKG BEING DONE BY TOUCH UP PAINTER HAND.
[2019-09-21 11:20] LABS: TROPONIN I < 0.015 ng/mL (0.000-0.045)
--- NOTE | 2019-09-21 11:50 | NUR ---
D/C INSTRUCTIONS, MEDS & F/U APPT WITH CARDIOLOGY RV'WD WITH PT, HE VERBALIZES UNDERSTANDING. EMPHASIZED TO PT THE IMPORTANCE OF TAKING HIS HOME MEDS PRESCRIBED, SINCE GIS SCIENTIST HAD CALLED AND REPORTED THAT PT HASN'T TAKEN HIS MEDS IN 2 DAYS. PT AMBULATED OUT OF ED WITHOUT DIFFICULTY, STATES HE WILL TAKE THE BUS HOME.
== END 2019-09-21 11:58 | disposition home or self-care (01) ==
LOC: ED 08:00
DX: R07.89 Other chest pain (principal); I44.4 Left anterior fascicular block; I48.91 Unspecified atrial fibrillation; I11.0 Hypertensive heart disease with heart failure; I50.9 Heart failure, unspecified; E11.9 Type 2 diabetes mellitus without complications; J44.9 Chronic obstructive pulmonary disease, unspecified; I25.2 Old myocardial infarction; E03.9 Hypothyroidism, unspecified; F17.200 Nicotine dependence, unspecified, uncomplicated; Z86.73 Personal history of transient ischemic attack (TIA), and cerebral infarction without residual deficits
CPT/HCPCS: 36415; 71045; 80053; 83690; 84484; 85025; 93005; 99285

== ENCOUNTER 2019-10-03 08:34 | Inpatient (IN) | payer MEDICAID ==
[~2019-10-03] VITALS: Ht 182.9 cm; Wt 109.7 kg
--- NOTE | 2019-10-03 08:44 | NUR ---
FARM MACHINE TENDER: EKG COMPLETED IN TRIAGE
--- NOTE | 2019-10-03 09:03 | NUR ---
PT PRESENTS TO ED WITH C/O SOB WITH EXERTION X 1 MONTH, SWELLING TO BILATERAL LE AND HANDS X 2 DAYS. PT AMBULATORY TO ROOM WITH SLOW BUT STEADY GAIT. PT BROUGHT BY CROWD CONTROLLER FROM [facility]. PT STATES HE WAS DX WITH A PE "ABOUT TWO MONTHS AGO", ELIQUIS WAS ALREADY A HOME MED FOR THE PT AT THAT TIME. WHEN ASKED IF PT MISSED ANY DOSES OF ELIQUIS PRIOR TO LAST PE, PT STATES "I DON'T THINK SO" PT IS A&O, RESPS EVEN AND UNLABORED. PT ABLE TO SPEAK IN FULL SENTENCES WITHOUT DIFFICULTY. PT DENIES PAIN. PT ATTACHED TO ALL MONITORS, PLACED IN GOWN, PROVIDED WITH BLANKET. AWAITING MD AND ORDERS AT THIS TIME.
[2019-10-03 09:55] LABS: BASOPHILS # (AUTO) 0.02 x10^3/uL (0-0.1); BASOPHILS % (AUTO) 0 % (0-1); EOSINOPHILS % (AUTO) 2 % (1-7); LYMPHOCYTES # (AUTO) 1.35 x10^3/uL (1-3.4); LYMPHOCYTES % (AUTO) 27 % (22-44); MD NO; MEAN CORPUSCULAR HEMOGLOBIN 30.1 pg (27.5-34.5); MEAN CORPUSCULAR HGB CONC 32.7 g/dL (33.2-36.2); MEAN CORPUSCULAR VOLUME 92.1 fL (81-97); MEAN PLATELET VOLUME 8.4 fL (7.4-10.4); MONOCYTES # (AUTO) 0.46 x10^3/uL (0.2-0.8); MONOCYTES % (AUTO) 9 % (2-9); NEUTROPHILS # (AUTO) 3.09 x10^3/uL (1.8-6.8); NEUTROPHILS % (AUTO) 62 % (42-75); PLATELET COUNT 119 x10^3/uL (130-400); RED BLOOD COUNT 4.34 x10^6/uL (4.38-5.82); RED CELL DISTRIBUTION WIDTH 14.8 % (9.4-14.8)
--- NOTE | 2019-10-03 10:00 | NUR ---
pt sleeping, resps even and unlabored, nadn. awwiting lab results and dispo.
[2019-10-03 10:04] LABS: ALBUMIN 3.1 g/dL (3.4-5.0); ANION GAP 9 mmol/L (5-15); CALCIUM 8.2 mg/dL (8.5-10.1); CHLORIDE 112 mmol/L (98-107)
[2019-10-03] MEDS ORDERED: FUROSEMIDE 20 MG TABLET PO ONE (10:44)
--- NOTE | 2019-10-03 11:00 | NUR ---
pt resting on gurney, pt a&o, resps even and unlabored. vss. all results back, chart up for recheck, awaiting MD and dispo.
--- NOTE | 2019-10-03 11:20 | NUR ---
ADILSON RN: PHARM REQUEST SENT FOR MIGUEL
[2019-10-03] MEDS ORDERED: FUROSEMIDE 10 MG/ML ORAL SOL PO ONE (12:00)
--- NOTE | 2019-10-03 12:55 | NUR ---
PIV attempted x 2 by this RN without success, EDTA at bedside for US PIV placement. pt a&ox4, resps even and unlabored, nadn. pt denies pain, pt has voided x 2 since lasix admin.
--- NOTE | 2019-10-03 13:14 | NUR ---
edta unsuccessful with PIV placement. LEIGH Chapman at bedside for US PIV attempt.
--- NOTE | 2019-10-03 13:15 | NUR ---
pt unable to recall home meds/doseages for med rec, pt states his pharmacy is [facility] in [place].
--- NOTE | 2019-10-03 13:24 | NUR ---
US PIV ESTABLISHED BY LEIGH MNIA, 18 G LEFT FOREARM. PT TOLERATED WELL.
[2019-10-03 13:34] LABS: ALANINE AMINOTRANSFERASE 21 U/L (12-78); ALBUMIN 3.2 g/dL (3.4-5.0)
[2019-10-03 13:38] LABS: ALKALINE PHOSPHATASE 66 U/L (45-117); BILIRUBIN,TOTAL 0.3 mg/dL (0.2-1.0); TOTAL PROTEIN 5.8 g/dL (6.4-8.2); TROPONIN I < 0.015 ng/mL (0.000-0.045)
[2019-10-03 13:41] LABS: BILIRUBIN, DIRECT < 0.1 mg/dL (0.1-0.2); BILIRUBIN,INDIRECT 0.2 mg/dL (0.0-2.0)
--- NOTE | 2019-10-03 14:00 | NUR ---
US IN PROGRESS AT BEDSIDE.
[2019-10-03] MEDS ORDERED: ALBUTEROL SULFATE 2.5 MG/3 ML ONE (14:05)
[2019-10-03] MEDS: ALBUTEROL SULFATE 2.5 MG/3 ML NPPB SCH ×2 (14:07→20:30)
--- NOTE | 2019-10-03 14:24 | NUR ---
PT UP TO BATHROOM TO VOID, GAIT STEADY. PT NOW BACK IN BED, ALL MONTORS REATTACHED. PT A&O, RESPS EVEN AND UNALBORED. PT DENIES PAIN. PT IN AFIB, RATE 110'S WITH NO ECTOPY. AWAITING CARDIAC TELE BED ASSIGNMENT AND TRANSPORT.
--- NOTE | 2019-10-03 14:56 | NUR ---
AFTER RETURN FROM BATHROOM, PT'S HR IS MOSTLY 110'S (AFIB) BUT HAS GONE HIGH 160 (NON-SUSTAINED), RARE PVC. POP NOTIFIED. INSTRUCTED RN TO ORDER STAT CTA CHEST PULMONARY ARTERY TO RULE OUT PE. REPORT GIVEN TO LEIGH CAM WHO IS TO ASSUME CARE AT THIS TIME.
--- NOTE | 2019-10-03 15:14 | NUR ---
this rn attempted to call pt's home pharmacy, was on hold for a prolonged period. med rec has not been updated this visit. LEIGH Cornelius notified, MD Gamez notified. MD Gamez reviewed lower extremity ultrasound, instructed RN to initiate strict bedrest and anticipate orders for anticoagulant. Pt to have CTA and await results prior to transport to floor per MD Gamez. LEIGH Cornelius notified.
[2019-10-03] MEDS ORDERED: Enoxaparin 1 mg/kg protocol SQ SCH (15:30)
--- NOTE | 2019-10-03 15:32 | NUR ---
PT INFORMED HE NEEDS TO MAINTAIN STRICT BEDREST, CALL LIGHT IN REACH. PT DENIES PAIN. PT A&OX4, RESPS EVEN AND UNLABORED, PT IS AFIB RATE 120'S ON CAN WASHER WITH NO ECTOPY. PT SPEAKING IN FULL SENTENCES, SPEECH CLEAR. NEURO ASSESSMENT COMPELTED, PT HAS WEAKER GRASP AND LEG STRENGTH TO LEFT SIDE, PT STATES THIS IS BASELINE. PUPILS EQUAL, ROUND AND REACTIVE. FACE SYMMETRICAL. MD FLEMING NOTIFIED. ORDERED STAT HEAD CT, INSTRUCTED RN TO HOLD ANTICOAGS UNTIL HEAD CT RESULTS REVIEWED BY MD FLEMING. DORINA ABRAHAM NOTIFIED.
[2019-10-03] MEDS ORDERED: ENOXAPARIN 120MG/0.8ML SQ SCH (16:00)
[2019-10-03] MEDS ORDERED: LORazepam 2 MG/ML, 1ML ONE ×2 (16:09→16:36)
--- NOTE | 2019-10-03 16:15 | NUR ---
Unable to tolerate CT due to anxiety. Spoke w/ Dr. Gamez & order for ativan IV 1mg pre CT received. Will also accompany pt to CT. Remains with sitter outside doorway to prevent getting OOB/falls.
--- NOTE | 2019-10-03 16:29 | NUR ---
Explained to pt again need to stay in bed. Compromised with on SR down & sitter at doorway for comfort & anxiety. Pt aware that he will receive ativan prior to CT this time & pt is willing to attempt CT chest & head again
[2019-10-03] MEDS ORDERED: POTASSIUM CHLORIDE 20 MEQ PACKET PO SCH (17:00)
--- NOTE | 2019-10-03 17:01 | NUR ---
able to complete CT head & chest. Holding anticoagulants until results back.
[2019-10-03] MEDS ORDERED: OMNIPAQUE 350 MG/ML, 100ML BOTTLE ONE (17:04)
--- NOTE | 2019-10-03 17:27 | NUR ---
Call to cards placed by Dr. Gamez due to +PE seen on CT chest.
--- NOTE | 2019-10-03 18:00 | NUR ---
Called pt's case worker Shila Yung [phone] to find out if someone has POA for pt. Told that no one does & that pt decides when he is "sick enough to go to hospital". she is the one who drove pt to hospital today because of leg swelling. Updated on pt's dx & admit plan.
[2019-10-03] MEDS ORDERED: HEPARIN 5,000 UNITS/ML, 1ML ONE ×2 (18:18→18:43)
[2019-10-03] MEDS ORDERED: HEPARIN 25,000 UNITS/250ML PMX 250 ML ONE (18:19)
--- NOTE | 2019-10-03 18:32 | NUR ---
POC after consult done by Dr. Karimi not to go to cardiac catheterization technician today. Will start pt on heparin then transfer to CCU. Report given to LEIGH Ye. 2nd IV est. Waiting on Heparin order from Dr. Gamez. Anti x-a ordered. Pt pato, bert @ BS.
[2019-10-03] MEDS: HEPARIN 25,000 UNITS/250ML PMX 250 ML IV PRN (18:49)
[2019-10-03 18:59] LABS: TROPONIN I < 0.015 ng/mL (0.000-0.045)
[2019-10-03] MEDS ORDERED: HEPARIN 5,000 UNITS/ML, 1ML IV ONE (19:00)
[2019-10-03] MEDS ORDERED: HEPARIN 5,000 UNITS/ML, 1ML IV PRN (19:00)
[2019-10-03] MEDS ORDERED: LORazepam 2 MG/ML, 1ML IVPush ONE (19:30)
[2019-10-03 20:00] VITALS: BP 115/72
[2019-10-03] MEDS: CARVEDILOL 3.125 MG TABLET PO SCH (20:28)
[2019-10-03] MEDS: BUSPIRONE 5 MG TABLET PO SCH (20:28)
[2019-10-03] MEDS: DIVALPROEX 250 MG TABLET.DR PO SCH (20:28)
[2019-10-03] MEDS: FUROSEMIDE 20 MG/2 ML IV SCH (20:28)
[2019-10-03] MEDS: SIMVASTATIN 10 MG TABLET PO SCH (20:28)
[2019-10-03] MEDS: BUDESONIDE 0.5 MG/2 ML INHA INH SCH (20:36)
[2019-10-03] MEDS ORDERED: APIXABAN 5 MG TABLET PO SCH (21:00)
[2019-10-04 01:08] LABS: TROPONIN I < 0.015 ng/mL (0.000-0.045)
[2019-10-04] MEDS: ALBUTEROL SULFATE 2.5 MG/3 ML NPPB SCH ×4 (02:00→19:48)
[2019-10-04 04:30] VITALS: BP 98/71
[2019-10-04 04:33] LABS: BASOPHILS # (AUTO) 0.03 x10^3/uL (0-0.1); BASOPHILS % (AUTO) 1 % (0-1); EOSINOPHILS % (AUTO) 2 % (1-7); LYMPHOCYTES # (AUTO) 1.79 x10^3/uL (1-3.4); LYMPHOCYTES % (AUTO) 33 % (22-44); MD NO; MEAN CORPUSCULAR HEMOGLOBIN 30.2 pg (27.5-34.5); MEAN CORPUSCULAR HGB CONC 32.4 g/dL (33.2-36.2); MEAN CORPUSCULAR VOLUME 93.1 fL (81-97); MEAN PLATELET VOLUME 8.4 fL (7.4-10.4); MONOCYTES # (AUTO) 0.56 x10^3/uL (0.2-0.8); MONOCYTES % (AUTO) 10 % (2-9); NEUTROPHILS # (AUTO) 2.92 x10^3/uL (1.8-6.8); NEUTROPHILS % (AUTO) 54 % (42-75); PLATELET COUNT 116 x10^3/uL (130-400); RED BLOOD COUNT 4.33 x10^6/uL (4.38-5.82); RED CELL DISTRIBUTION WIDTH 14.8 % (9.4-14.8)
[2019-10-04 04:45] LABS: ANION GAP 8 mmol/L (5-15); CALCIUM 8.2 mg/dL (8.5-10.1); CHLORIDE 109 mmol/L (98-107)
[2019-10-04 04:58] LABS: ALANINE AMINOTRANSFERASE 21 U/L (12-78); ALBUMIN 3.1 g/dL (3.4-5.0); ALKALINE PHOSPHATASE 62 U/L (45-117); BILIRUBIN,TOTAL 0.5 mg/dL (0.2-1.0); CREATININE 1.04 mg/dL (0.7-1.3); TOTAL PROTEIN 5.6 g/dL (6.4-8.2)
[2019-10-04] MEDS: LEVOTHYROXINE 100 MCG TABLET PO SCH (05:43)
[2019-10-04] MEDS ORDERED: POTASSIUM CHLORIDE 20 MEQ TAB.ER.PRT PO ONE (07:00)
[2019-10-04] MEDS: BUDESONIDE 0.5 MG/2 ML INHA INH SCH ×2 (07:09→19:49)
[2019-10-04] MEDS: CARVEDILOL 3.125 MG TABLET PO SCH ×2 (09:40→17:43)
[2019-10-04] MEDS: DIVALPROEX 250 MG TABLET.DR PO SCH ×2 (09:40→19:50)
[2019-10-04] MEDS: FLUDROCORTISONE 0.1 MG TABLET PO SCH (09:40)
[2019-10-04] MEDS: ASPIRIN 81 MG TABLET EC PO SCH (09:40)
[2019-10-04] MEDS: FUROSEMIDE 20 MG/2 ML IV SCH ×2 (09:40→17:43)
[2019-10-04] MEDS: ALLOPURINOL 300 MG TABLET PO SCH (09:40)
[2019-10-04] MEDS: BUSPIRONE 5 MG TABLET PO SCH ×3 (09:41→19:50)
[2019-10-04] MEDS: LISINOPRIL 5 MG TABLET PO SCH (09:41)
[2019-10-04] MEDS: DIGOXIN 0.125 MG TABLET PO SCH (09:41)
[2019-10-04] MEDS: SERTRALINE 50MG TABLET PO SCH (09:41)
[2019-10-04] MEDS ORDERED: DIGOXIN 0.25 MG/ML, 2ML IVPush ONE (12:00)
[2019-10-04] MEDS ORDERED: FENTANYL PF 100 MCG/2ML ONE ×2 (13:42)
[2019-10-04] MEDS ORDERED: MIDAZOLAM 1 MG/ML, 5ML ONE ×2 (13:42→13:43)
[2019-10-04] MEDS ORDERED: NALOXONE 1 MG/ML, 2ML ONE (13:43)
[2019-10-04] MEDS ORDERED: FLUMAZENIL 0.1 MG/1 ML, 5ML ONE (13:43)
[2019-10-04] MEDS: HEPARIN 25,000 UNITS/250ML PMX 250 ML IV PRN (15:02)
[2019-10-04 17:13] LABS: CLOSTRIDIUM DIFFICILE ANTIGEN NEGATIVE; CLOSTRIDIUM DIFFICILE TOXIN NEGATIVE (Negative)
[2019-10-04] MEDS: SIMVASTATIN 10 MG TABLET PO SCH (19:50)
[2019-10-04 19:54] VITALS: BP 105/81
[2019-10-04 23:52] VITALS: BP 107/83
[2019-10-05] VITALS (7 sets, daily range): BP systolic 89–116; BP diastolic 62–79
[2019-10-05] MEDS: ALBUTEROL SULFATE 2.5 MG/3 ML NPPB SCH ×4 (02:30→20:30)
[2019-10-05] MEDS: CARVEDILOL 3.125 MG TABLET PO SCH ×2 (05:45→16:54)
[2019-10-05] MEDS: ASPIRIN 81 MG TABLET EC PO SCH (05:45)
[2019-10-05] MEDS: LEVOTHYROXINE 100 MCG TABLET PO SCH (05:46)
[2019-10-05] MEDS: DIGOXIN 0.125 MG TABLET PO SCH (08:44)
[2019-10-05] MEDS: SERTRALINE 50MG TABLET PO SCH (08:44)
[2019-10-05] MEDS: FLUDROCORTISONE 0.1 MG TABLET PO SCH (08:44)
[2019-10-05] MEDS: LISINOPRIL 5 MG TABLET PO SCH (08:45)
[2019-10-05] MEDS: DIVALPROEX 250 MG TABLET.DR PO SCH ×2 (08:45→20:54)
[2019-10-05] MEDS: ALLOPURINOL 300 MG TABLET PO SCH (08:45)
[2019-10-05] MEDS: BUSPIRONE 5 MG TABLET PO SCH ×3 (08:45→20:54)
[2019-10-05] MEDS: RIVAROXABAN 15 MG TABLET PO SCH ×2 (08:46→16:54)
[2019-10-05] MEDS: FUROSEMIDE 20 MG/2 ML IV SCH ×2 (08:46→16:54)
[2019-10-05] MEDS: ENOXAPARIN 100 MG/ML SQ SCH ×2 (09:04→20:58)
[2019-10-05] MEDS: BUDESONIDE 0.5 MG/2 ML INHA INH SCH ×2 (10:16→21:00)
[2019-10-05] MEDS: SIMVASTATIN 10 MG TABLET PO SCH (20:55)
[2019-10-06] MEDS: ALBUTEROL SULFATE 2.5 MG/3 ML NPPB SCH ×2 (02:30→18:33)
[2019-10-06 04:08] VITALS: BP 88/58
[2019-10-06] MEDS: LEVOTHYROXINE 100 MCG TABLET PO SCH (05:42)
[2019-10-06] MEDS: ASPIRIN 81 MG TABLET EC PO SCH (05:42)
[2019-10-06] MEDS: CARVEDILOL 3.125 MG TABLET PO SCH ×2 (05:42→18:09)
[2019-10-06 06:50] VITALS: BP 98/65
[2019-10-06] MEDS: DIVALPROEX 250 MG TABLET.DR PO SCH ×2 (08:37→20:07)
[2019-10-06] MEDS: ENOXAPARIN 100 MG/ML SQ SCH (08:37)
[2019-10-06] MEDS: FLUDROCORTISONE 0.1 MG TABLET PO SCH (08:37)
[2019-10-06] MEDS: FUROSEMIDE 20 MG/2 ML IV SCH ×2 (08:37→16:57)
[2019-10-06] MEDS: ALLOPURINOL 300 MG TABLET PO SCH (08:38)
[2019-10-06] MEDS: RIVAROXABAN 15 MG TABLET PO SCH ×2 (08:38→16:58)
[2019-10-06] MEDS: SERTRALINE 50MG TABLET PO SCH (08:38)
[2019-10-06] MEDS: DIGOXIN 0.125 MG TABLET PO SCH (08:38)
[2019-10-06] MEDS: LISINOPRIL 5 MG TABLET PO SCH (08:38)
[2019-10-06] MEDS: BUSPIRONE 5 MG TABLET PO SCH ×3 (08:38→21:14)
[2019-10-06] MEDS: BUDESONIDE 0.5 MG/2 ML INHA INH SCH ×2 (09:00→18:33)
[2019-10-06 15:00] VITALS: BP 124/76
[2019-10-06 16:59] VITALS: BP 95/69
[2019-10-06 19:03] VITALS: BP 93/60
[2019-10-06] MEDS: SIMVASTATIN 10 MG TABLET PO SCH (20:07)
[2019-10-07 01:50] VITALS: BP 100/66
[2019-10-07] MEDS: LEVOTHYROXINE 100 MCG TABLET PO SCH (05:40)
[2019-10-07] MEDS: CARVEDILOL 3.125 MG TABLET PO SCH ×2 (05:40→17:44)
[2019-10-07] MEDS: ASPIRIN 81 MG TABLET EC PO SCH (05:41)
[2019-10-07 07:24] VITALS: BP 106/73
[2019-10-07] MEDS: DIGOXIN 0.125 MG TABLET PO SCH (09:19)
[2019-10-07] MEDS: BUSPIRONE 5 MG TABLET PO SCH ×3 (09:19→20:27)
[2019-10-07] MEDS: ALLOPURINOL 300 MG TABLET PO SCH (09:19)
[2019-10-07] MEDS: FLUDROCORTISONE 0.1 MG TABLET PO SCH (09:19)
[2019-10-07] MEDS: SERTRALINE 50MG TABLET PO SCH (09:19)
[2019-10-07] MEDS: RIVAROXABAN 15 MG TABLET PO SCH ×2 (09:19→17:44)
[2019-10-07] MEDS: FUROSEMIDE 20 MG/2 ML IV SCH ×2 (09:20→17:01)
[2019-10-07] MEDS: LISINOPRIL 5 MG TABLET PO SCH (09:20)
[2019-10-07] MEDS: DIVALPROEX 250 MG TABLET.DR PO SCH ×2 (09:20→20:27)
[2019-10-07] MEDS: BUDESONIDE 0.5 MG/2 ML INHA INH SCH ×2 (09:58→18:53)
[2019-10-07] MEDS: ALBUTEROL SULFATE 2.5 MG/3 ML NPPB SCH ×2 (09:58→18:53)
[2019-10-07 13:19] VITALS: BP 93/69
[2019-10-07] MEDS ORDERED: LOSA50TA14 PO (13:52)
[2019-10-07 17:46] VITALS: BP 93/64
[2019-10-07] MEDS: SIMVASTATIN 10 MG TABLET PO SCH (20:27)
[2019-10-07 20:36] VITALS: BP 92/62
[2019-10-08 02:12] VITALS: BP 91/61
[2019-10-08] MEDS: ACETAMINOPHEN 325 MG TABLET PO PRN ×2 (04:53→13:13)
[2019-10-08] MEDS: ASPIRIN 81 MG TABLET EC PO SCH (05:53)
[2019-10-08] MEDS: CARVEDILOL 3.125 MG TABLET PO SCH ×2 (05:53→17:52)
[2019-10-08] MEDS: LEVOTHYROXINE 100 MCG TABLET PO SCH (05:54)
[2019-10-08] MEDS: LISINOPRIL 5 MG TABLET PO SCH (07:43)
[2019-10-08] MEDS: SERTRALINE 50MG TABLET PO SCH (07:44)
[2019-10-08] MEDS: DIGOXIN 0.125 MG TABLET PO SCH (07:44)
[2019-10-08] MEDS: ALLOPURINOL 300 MG TABLET PO SCH (07:44)
[2019-10-08] MEDS: FLUDROCORTISONE 0.1 MG TABLET PO SCH (07:44)
[2019-10-08] MEDS: FUROSEMIDE 20 MG TABLET PO SCH (07:44)
[2019-10-08] MEDS: DIVALPROEX 250 MG TABLET.DR PO SCH ×2 (07:44→20:17)
[2019-10-08] MEDS: RIVAROXABAN 15 MG TABLET PO SCH ×2 (07:44→17:52)
[2019-10-08 08:09] VITALS: BP 100/68
[2019-10-08 08:13] LABS: BASOPHILS # (AUTO) 0.03 x10^3/uL (0-0.1); BASOPHILS % (AUTO) 0 % (0-1); EOSINOPHILS # (AUTO) 0.07 x10^3/uL (0-0.4); EOSINOPHILS % (AUTO) 1 % (1-7); LYMPHOCYTES # (AUTO) 1.31 x10^3/uL (1-3.4); LYMPHOCYTES % (AUTO) 20 % (22-44); MD NO; MEAN CORPUSCULAR HEMOGLOBIN 30.5 pg (27.5-34.5); MEAN CORPUSCULAR VOLUME 92.2 fL (81-97); MEAN PLATELET VOLUME 8.7 fL (7.4-10.4); MONOCYTES # (AUTO) 0.73 x10^3/uL (0.2-0.8); MONOCYTES % (AUTO) 11 % (2-9); NEUTROPHILS # (AUTO) 4.31 x10^3/uL (1.8-6.8); NEUTROPHILS % (AUTO) 67 % (42-75); PLATELET COUNT 127 x10^3/uL (130-400); RED CELL DISTRIBUTION WIDTH 14.7 % (9.4-14.8)
[2019-10-08 08:24] LABS: ALBUMIN 3.3 g/dL (3.4-5.0); ANION GAP 5 mmol/L (5-15); CALCIUM 8.8 mg/dL (8.5-10.1); CHLORIDE 102 mmol/L (98-107)
[2019-10-08 08:30] LABS: ALANINE AMINOTRANSFERASE 43 U/L (12-78); ALKALINE PHOSPHATASE 63 U/L (45-117); BILIRUBIN,TOTAL 0.5 mg/dL (0.2-1.0); CREATININE 0.98 mg/dL (0.7-1.3); TOTAL PROTEIN 5.9 g/dL (6.4-8.2)
[2019-10-08] MEDS ORDERED: ARIPIPRAZOLE 10 MG TABLET PO SCH (09:00)
[2019-10-08] MEDS ORDERED: COLCHICINE 0.6 MG CAPSULE PO ONE (09:30)
[2019-10-08] MEDS ORDERED: POTASSIUM CHLORIDE 10% 40 MEQ/30 ML UDC PO ONE (09:30)
[2019-10-08 09:37] LABS: HCT (SEDRATE) 38.7 % (39.2-51.8)
[2019-10-08] MEDS: BUDESONIDE 0.5 MG/2 ML INHA INH SCH ×2 (10:20→20:31)
[2019-10-08] MEDS: ALBUTEROL SULFATE 2.5 MG/3 ML NPPB SCH ×2 (10:20→20:31)
[2019-10-08 13:55] VITALS: BP 95/66
[2019-10-08 19:16] VITALS: BP 102/64
[2019-10-08] MEDS: SIMVASTATIN 10 MG TABLET PO SCH (20:17)
[2019-10-09 02:15] VITALS: BP 95/63
[2019-10-09 05:23] VITALS: BP 98/57
[2019-10-09] MEDS: ASPIRIN 81 MG TABLET EC PO SCH (05:36)
[2019-10-09] MEDS: LEVOTHYROXINE 100 MCG TABLET PO SCH ×2 (05:37→10:05)
[2019-10-09] MEDS: CARVEDILOL 3.125 MG TABLET PO SCH ×2 (05:37→10:07)
[2019-10-09 07:53] VITALS: BP 96/67
[2019-10-09] MEDS: ALBUTEROL SULFATE 2.5 MG/3 ML NPPB SCH ×2 (09:00→21:00)
[2019-10-09] MEDS: BUDESONIDE 0.5 MG/2 ML INHA INH SCH ×2 (09:00→21:00)
[2019-10-09] MEDS: DIGOXIN 0.125 MG TABLET PO SCH (10:06)
[2019-10-09] MEDS: RIVAROXABAN 15 MG TABLET PO SCH ×2 (10:06→18:15)
[2019-10-09] MEDS: FLUDROCORTISONE 0.1 MG TABLET PO SCH (10:06)
[2019-10-09] MEDS: ALLOPURINOL 300 MG TABLET PO SCH (10:06)
[2019-10-09] MEDS: SERTRALINE 50MG TABLET PO SCH (10:07)
[2019-10-09] MEDS: FUROSEMIDE 20 MG TABLET PO SCH (10:07)
[2019-10-09] MEDS: LISINOPRIL 5 MG TABLET PO SCH (10:09)
[2019-10-09] MEDS: DIVALPROEX 250 MG TABLET.DR PO SCH ×2 (10:09→21:55)
[2019-10-09 10:12] VITALS: BP 116/82
[2019-10-09 12:47] VITALS: BP 112/77
[2019-10-09 19:52] VITALS: BP 104/69
[2019-10-09] MEDS: SIMVASTATIN 10 MG TABLET PO SCH (21:55)
[2019-10-10 01:54] VITALS: BP 108/73
[2019-10-10 04:35] LABS: ANION GAP 7 mmol/L (5-15); CALCIUM 8.9 mg/dL (8.5-10.1); CHLORIDE 105 mmol/L (98-107); CREATININE 0.91 mg/dL (0.7-1.3)
[2019-10-10 05:17] VITALS: BP 113/78
[2019-10-10] MEDS: CARVEDILOL 3.125 MG TABLET PO SCH ×2 (05:18→18:24)
[2019-10-10] MEDS: ASPIRIN 81 MG TABLET EC PO SCH (05:18)
[2019-10-10] MEDS: BUDESONIDE 0.5 MG/2 ML INHA INH SCH ×2 (07:40→20:24)
[2019-10-10] MEDS: ALBUTEROL SULFATE 2.5 MG/3 ML NPPB SCH ×2 (07:40→20:24)
[2019-10-10 08:02] VITALS: BP 103/70
[2019-10-10 08:25] LABS: BASOPHILS # (AUTO) 0.03 x10^3/uL (0-0.1); BASOPHILS % (AUTO) 1 % (0-1); EOSINOPHILS % (AUTO) 2 % (1-7); LYMPHOCYTES # (AUTO) 1.63 x10^3/uL (1-3.4); LYMPHOCYTES % (AUTO) 37 % (22-44); MD NO; MEAN CORPUSCULAR HEMOGLOBIN 30.6 pg (27.5-34.5); MEAN CORPUSCULAR HGB CONC 33.5 g/dL (33.2-36.2); MEAN CORPUSCULAR VOLUME 91.5 fL (81-97); MEAN PLATELET VOLUME 8.6 fL (7.4-10.4); MONOCYTES # (AUTO) 0.43 x10^3/uL (0.2-0.8); MONOCYTES % (AUTO) 10 % (2-9); NEUTROPHILS % (AUTO) 50 % (42-75); PLATELET COUNT 156 x10^3/uL (130-400); RED CELL DISTRIBUTION WIDTH 14.6 % (9.4-14.8)
[2019-10-10] MEDS: ALLOPURINOL 300 MG TABLET PO SCH (10:00)
[2019-10-10] MEDS: LISINOPRIL 5 MG TABLET PO SCH (10:01)
[2019-10-10] MEDS: DIGOXIN 0.125 MG TABLET PO SCH (10:01)
[2019-10-10] MEDS: RIVAROXABAN 15 MG TABLET PO SCH ×2 (10:01→18:24)
[2019-10-10] MEDS: FUROSEMIDE 20 MG TABLET PO SCH (10:01)
[2019-10-10] MEDS: DIVALPROEX 250 MG TABLET.DR PO SCH ×2 (10:01→19:58)
[2019-10-10] MEDS: FLUDROCORTISONE 0.1 MG TABLET PO SCH (10:02)
[2019-10-10] MEDS: SERTRALINE 50MG TABLET PO SCH (10:02)
[2019-10-10 10:08] VITALS: BP 111/80
[2019-10-10 13:53] VITALS: BP 119/88
--- NOTE | 2019-10-10 15:10 | NUR ---
Pt ambulating with SBA using FWW and is safe to DC back to [facility] Addendum: 10/10/19 at 1511 by Pasquale Staton PT Amended: Links added.
[2019-10-10 19:17] VITALS: BP 113/74
[2019-10-10] MEDS: SIMVASTATIN 10 MG TABLET PO SCH (19:58)
[2019-10-11 01:37] VITALS: BP 111/75
[2019-10-11 06:17] VITALS: BP 114/79
[2019-10-11] MEDS: CARVEDILOL 3.125 MG TABLET PO SCH ×2 (06:19→17:52)
[2019-10-11] MEDS: ASPIRIN 81 MG TABLET EC PO SCH (06:19)
[2019-10-11] MEDS: LEVOTHYROXINE 100 MCG TABLET PO SCH (06:19)
[2019-10-11] MEDS: BUDESONIDE 0.5 MG/2 ML INHA INH SCH ×2 (07:13→20:16)
[2019-10-11] MEDS: ALBUTEROL SULFATE 2.5 MG/3 ML NPPB SCH ×2 (07:13→20:16)
[2019-10-11 08:22] VITALS: BP 109/76
[2019-10-11] MEDS: DIGOXIN 0.125 MG TABLET PO SCH (08:37)
[2019-10-11] MEDS: RIVAROXABAN 15 MG TABLET PO SCH ×2 (08:37→17:52)
[2019-10-11] MEDS: DIVALPROEX 250 MG TABLET.DR PO SCH ×2 (08:37→20:52)
[2019-10-11] MEDS: FUROSEMIDE 20 MG TABLET PO SCH (08:37)
[2019-10-11] MEDS: ALLOPURINOL 300 MG TABLET PO SCH (08:37)
[2019-10-11] MEDS: FLUDROCORTISONE 0.1 MG TABLET PO SCH (08:38)
[2019-10-11] MEDS: LISINOPRIL 5 MG TABLET PO SCH (08:38)
[2019-10-11] MEDS: SERTRALINE 50MG TABLET PO SCH (08:38)
[2019-10-11 14:39] VITALS: BP 100/69
[2019-10-11 19:14] VITALS: BP 118/77
[2019-10-11] MEDS: SIMVASTATIN 10 MG TABLET PO SCH (20:52)
[2019-10-12 00:09] VITALS: BP 110/73
[2019-10-12 06:25] VITALS: BP 107/74
[2019-10-12] MEDS: CARVEDILOL 3.125 MG TABLET PO SCH ×2 (06:27→16:42)
[2019-10-12] MEDS: LEVOTHYROXINE 100 MCG TABLET PO SCH (06:27)
[2019-10-12] MEDS: ASPIRIN 81 MG TABLET EC PO SCH (06:27)
[2019-10-12] MEDS: ALBUTEROL SULFATE 2.5 MG/3 ML NPPB SCH ×2 (09:15→21:00)
[2019-10-12] MEDS: BUDESONIDE 0.5 MG/2 ML INHA INH SCH ×2 (09:17→21:00)
[2019-10-12] MEDS ORDERED: RIVAROXABAN 10 MG TABLET ONE (10:01)
[2019-10-12] MEDS: DIVALPROEX 250 MG TABLET.DR PO SCH ×2 (10:06→20:36)
[2019-10-12] MEDS: SERTRALINE 50MG TABLET PO SCH (10:06)
[2019-10-12] MEDS: ALLOPURINOL 300 MG TABLET PO SCH (10:06)
[2019-10-12] MEDS: FUROSEMIDE 20 MG TABLET PO SCH (10:07)
[2019-10-12] MEDS: LISINOPRIL 5 MG TABLET PO SCH (10:07)
[2019-10-12] MEDS: FLUDROCORTISONE 0.1 MG TABLET PO SCH (10:07)
[2019-10-12 10:10] VITALS: BP 106/74
[2019-10-12] MEDS: DIGOXIN 0.125 MG TABLET PO SCH (10:32)
[2019-10-12] MEDS: RIVAROXABAN 15 MG TABLET PO SCH ×2 (10:32→16:42)
[2019-10-12] MEDS: ACETAMINOPHEN 325 MG TABLET PO PRN (11:09)
[2019-10-12] MEDS ORDERED: NICOTINE 21 MG/24 HR PATCH.TD24 TD ONE (11:30)
[2019-10-12 12:17] VITALS: BP 120/78
[2019-10-12 19:06] VITALS: BP 110/68
[2019-10-12] MEDS: SIMVASTATIN 10 MG TABLET PO SCH (20:36)
[2019-10-13 00:26] VITALS: BP 118/82
[2019-10-13] MEDS: LEVOTHYROXINE 100 MCG TABLET PO SCH (05:57)
[2019-10-13] MEDS: CARVEDILOL 3.125 MG TABLET PO SCH ×2 (05:57→17:24)
[2019-10-13] MEDS: ASPIRIN 81 MG TABLET EC PO SCH (05:57)
[2019-10-13] MEDS: ALLOPURINOL 300 MG TABLET PO SCH (07:16)
[2019-10-13] MEDS: DIVALPROEX 250 MG TABLET.DR PO SCH ×2 (07:16→19:45)
[2019-10-13] MEDS: FUROSEMIDE 20 MG TABLET PO SCH (07:16)
[2019-10-13] MEDS: RIVAROXABAN 15 MG TABLET PO SCH ×2 (07:16→17:24)
[2019-10-13] MEDS: FLUDROCORTISONE 0.1 MG TABLET PO SCH (07:16)
[2019-10-13] MEDS: DIGOXIN 0.125 MG TABLET PO SCH (07:16)
[2019-10-13] MEDS: SERTRALINE 50MG TABLET PO SCH (07:17)
[2019-10-13] MEDS: LISINOPRIL 5 MG TABLET PO SCH (07:17)
[2019-10-13 08:10] VITALS: BP 112/76
[2019-10-13] MEDS: BUDESONIDE 0.5 MG/2 ML INHA INH SCH ×2 (09:25→20:33)
[2019-10-13] MEDS: ALBUTEROL SULFATE 2.5 MG/3 ML NPPB SCH ×2 (09:25→20:33)
[2019-10-13] MEDS: NICOTINE 21 MG/24 HR PATCH.TD24 TD SCH (10:23)
[2019-10-13 13:12] VITALS: BP 115/79
[2019-10-13] MEDS: SIMVASTATIN 10 MG TABLET PO SCH (19:45)
[2019-10-13 19:56] VITALS: BP 117/77
[2019-10-13] MEDS: ACETAMINOPHEN 325 MG TABLET PO PRN (20:48)
[2019-10-14 01:42] VITALS: BP 103/69
[2019-10-14 05:02] VITALS: BP 94/67
[2019-10-14] MEDS: LEVOTHYROXINE 100 MCG TABLET PO SCH (05:11)
[2019-10-14] MEDS: ASPIRIN 81 MG TABLET EC PO SCH (05:11)
[2019-10-14] MEDS: CARVEDILOL 3.125 MG TABLET PO SCH ×2 (08:44→16:58)
[2019-10-14] MEDS: FLUDROCORTISONE 0.1 MG TABLET PO SCH (08:44)
[2019-10-14] MEDS: DIVALPROEX 250 MG TABLET.DR PO SCH ×2 (08:44→20:13)
[2019-10-14] MEDS: FUROSEMIDE 20 MG TABLET PO SCH (08:44)
[2019-10-14] MEDS: ALLOPURINOL 300 MG TABLET PO SCH (08:45)
[2019-10-14] MEDS: LISINOPRIL 5 MG TABLET PO SCH (08:45)
[2019-10-14] MEDS: DIGOXIN 0.125 MG TABLET PO SCH (08:45)
[2019-10-14] MEDS: NICOTINE 21 MG/24 HR PATCH.TD24 TD SCH (08:45)
[2019-10-14] MEDS: SERTRALINE 50MG TABLET PO SCH (08:45)
[2019-10-14] MEDS: RIVAROXABAN 15 MG TABLET PO SCH ×2 (08:45→16:58)
[2019-10-14 08:55] VITALS: BP 108/77
[2019-10-14] MEDS: ALBUTEROL SULFATE 2.5 MG/3 ML NPPB SCH ×2 (09:35→20:21)
[2019-10-14] MEDS: BUDESONIDE 0.5 MG/2 ML INHA INH SCH ×2 (09:51→20:21)
[2019-10-14 14:52] VITALS: BP 114/77
[2019-10-14] MEDS: ACETAMINOPHEN 325 MG TABLET PO PRN ×2 (15:35→21:37)
[2019-10-14 19:21] VITALS: BP 112/76
[2019-10-14] MEDS: SIMVASTATIN 10 MG TABLET PO SCH (20:13)
[2019-10-15 00:27] VITALS: BP 109/70
[2019-10-15] MEDS: ACETAMINOPHEN 325 MG TABLET PO PRN ×3 (03:14→20:32)
[2019-10-15 04:48] VITALS: BP 102/69
[2019-10-15] MEDS: CARVEDILOL 3.125 MG TABLET PO SCH ×2 (05:10→17:35)
[2019-10-15] MEDS: LEVOTHYROXINE 100 MCG TABLET PO SCH (05:10)
[2019-10-15] MEDS: ASPIRIN 81 MG TABLET EC PO SCH (05:11)
[2019-10-15 07:24] VITALS: BP 136/67
[2019-10-15] MEDS: BUDESONIDE 0.5 MG/2 ML INHA INH SCH ×2 (08:45→20:56)
[2019-10-15] MEDS: ALBUTEROL SULFATE 2.5 MG/3 ML NPPB SCH ×2 (08:45→20:56)
[2019-10-15] MEDS: FLUDROCORTISONE 0.1 MG TABLET PO SCH (09:20)
[2019-10-15] MEDS: FUROSEMIDE 20 MG TABLET PO SCH (09:21)
[2019-10-15] MEDS: RIVAROXABAN 15 MG TABLET PO SCH ×2 (09:21→16:37)
[2019-10-15] MEDS: DIGOXIN 0.125 MG TABLET PO SCH (09:22)
[2019-10-15] MEDS: DIVALPROEX 250 MG TABLET.DR PO SCH ×2 (09:23→19:56)
[2019-10-15] MEDS: ALLOPURINOL 300 MG TABLET PO SCH (09:23)
[2019-10-15] MEDS: LISINOPRIL 5 MG TABLET PO SCH (09:24)
[2019-10-15] MEDS: SERTRALINE 50MG TABLET PO SCH (09:24)
[2019-10-15] MEDS: NICOTINE 21 MG/24 HR PATCH.TD24 TD SCH (09:26)
[2019-10-15 12:56] VITALS: BP 101/68
[2019-10-15 19:26] VITALS: BP 96/65
[2019-10-15] MEDS: SIMVASTATIN 10 MG TABLET PO SCH (19:56)
[2019-10-16 01:21] VITALS: BP 98/67
[2019-10-16 05:30] VITALS: BP 119/87
[2019-10-16] MEDS: CARVEDILOL 3.125 MG TABLET PO SCH ×2 (05:31→16:45)
[2019-10-16] MEDS: LEVOTHYROXINE 100 MCG TABLET PO SCH (05:31)
[2019-10-16] MEDS: ASPIRIN 81 MG TABLET EC PO SCH (05:31)
[2019-10-16 07:54] VITALS: BP 121/81
[2019-10-16] MEDS: ALLOPURINOL 300 MG TABLET PO SCH (08:11)
[2019-10-16] MEDS: ALBUTEROL SULFATE 2.5 MG/3 ML NPPB SCH ×2 (08:11→21:00)
[2019-10-16] MEDS: FUROSEMIDE 20 MG TABLET PO SCH (08:11)
[2019-10-16] MEDS: FLUDROCORTISONE 0.1 MG TABLET PO SCH (08:12)
[2019-10-16] MEDS: LISINOPRIL 5 MG TABLET PO SCH (08:12)
[2019-10-16] MEDS: SERTRALINE 50MG TABLET PO SCH (08:12)
[2019-10-16] MEDS: NICOTINE 21 MG/24 HR PATCH.TD24 TD SCH (08:12)
[2019-10-16] MEDS: DIGOXIN 0.125 MG TABLET PO SCH (08:12)
[2019-10-16] MEDS: DIVALPROEX 250 MG TABLET.DR PO SCH ×2 (08:12→21:42)
[2019-10-16] MEDS: BUDESONIDE 0.5 MG/2 ML INHA INH SCH ×2 (08:12→21:00)
[2019-10-16] MEDS: RIVAROXABAN 15 MG TABLET PO SCH ×2 (08:12→16:45)
[2019-10-16] MEDS: ACETAMINOPHEN 325 MG TABLET PO PRN ×2 (08:17→21:16)
[2019-10-16 12:48] VITALS: BP 116/79
[2019-10-16 19:51] VITALS: BP 115/77
[2019-10-16] MEDS: SIMVASTATIN 10 MG TABLET PO SCH (21:43)
[2019-10-17 01:48] VITALS: BP 128/75
[2019-10-17] MEDS: LEVOTHYROXINE 100 MCG TABLET PO SCH (05:51)
[2019-10-17] MEDS: CARVEDILOL 3.125 MG TABLET PO SCH ×2 (05:52→16:47)
[2019-10-17] MEDS: ASPIRIN 81 MG TABLET EC PO SCH (05:52)
[2019-10-17 06:26] LABS: CREATININE 0.85 mg/dL (0.7-1.3)
[2019-10-17 07:14] VITALS: BP 106/68
[2019-10-17 08:41] VITALS: BP 119/83
[2019-10-17] MEDS: SERTRALINE 50MG TABLET PO SCH (08:42)
[2019-10-17] MEDS: NICOTINE 21 MG/24 HR PATCH.TD24 TD SCH (08:42)
[2019-10-17] MEDS: FLUDROCORTISONE 0.1 MG TABLET PO SCH (08:42)
[2019-10-17] MEDS: FUROSEMIDE 20 MG TABLET PO SCH (08:42)
[2019-10-17] MEDS: ALLOPURINOL 300 MG TABLET PO SCH (08:42)
[2019-10-17] MEDS: DIVALPROEX 250 MG TABLET.DR PO SCH ×2 (08:42→21:16)
[2019-10-17] MEDS: LISINOPRIL 5 MG TABLET PO SCH (08:43)
[2019-10-17] MEDS: RIVAROXABAN 15 MG TABLET PO SCH ×2 (08:43→16:49)
[2019-10-17] MEDS: DIGOXIN 0.125 MG TABLET PO SCH (08:43)
[2019-10-17] MEDS: ALBUTEROL SULFATE 2.5 MG/3 ML NPPB SCH ×2 (09:00→21:20)
[2019-10-17] MEDS: BUDESONIDE 0.5 MG/2 ML INHA INH SCH ×2 (09:00→21:20)
[2019-10-17 13:24] VITALS: BP 117/76
[2019-10-17 20:34] VITALS: BP 123/84
[2019-10-17] MEDS: ACETAMINOPHEN 325 MG TABLET PO PRN (21:16)
[2019-10-17] MEDS: SIMVASTATIN 10 MG TABLET PO SCH (21:16)
[2019-10-18] MEDS: ACETAMINOPHEN 325 MG TABLET PO PRN ×2 (01:06→05:19)
[2019-10-18 03:30] VITALS: BP 124/83
[2019-10-18] MEDS: CARVEDILOL 3.125 MG TABLET PO SCH ×2 (05:19→18:16)
[2019-10-18] MEDS: LEVOTHYROXINE 100 MCG TABLET PO SCH (05:19)
[2019-10-18] MEDS: ASPIRIN 81 MG TABLET EC PO SCH (05:19)
[2019-10-18 08:05] VITALS: BP 93/60
[2019-10-18] MEDS: BUDESONIDE 0.5 MG/2 ML INHA INH SCH ×2 (09:00→21:00)
[2019-10-18] MEDS: ALBUTEROL SULFATE 2.5 MG/3 ML NPPB SCH ×2 (09:00→21:00)
[2019-10-18] MEDS: DIGOXIN 0.125 MG TABLET PO SCH (11:49)
[2019-10-18] MEDS: DIVALPROEX 250 MG TABLET.DR PO SCH ×2 (11:49→20:29)
[2019-10-18] MEDS: ALLOPURINOL 300 MG TABLET PO SCH (11:49)
[2019-10-18] MEDS: FLUDROCORTISONE 0.1 MG TABLET PO SCH (11:49)
[2019-10-18] MEDS: NICOTINE 21 MG/24 HR PATCH.TD24 TD SCH (11:50)
[2019-10-18] MEDS: RIVAROXABAN 15 MG TABLET PO SCH ×2 (11:50→18:16)
[2019-10-18] MEDS: LISINOPRIL 5 MG TABLET PO SCH (11:50)
[2019-10-18] MEDS: SERTRALINE 50MG TABLET PO SCH (11:53)
[2019-10-18] MEDS: FUROSEMIDE 20 MG TABLET PO SCH (11:54)
[2019-10-18 13:17] VITALS: BP 91/58
[2019-10-18 20:23] VITALS: BP 101/66
[2019-10-18] MEDS: SIMVASTATIN 10 MG TABLET PO SCH (20:29)
[2019-10-19 00:10] VITALS: BP 120/83
[2019-10-19] MEDS: ACETAMINOPHEN 325 MG TABLET PO PRN (00:17)
[2019-10-19] MEDS: ASPIRIN 81 MG TABLET EC PO SCH (06:18)
[2019-10-19] MEDS: LEVOTHYROXINE 100 MCG TABLET PO SCH (06:18)
[2019-10-19] MEDS: CARVEDILOL 3.125 MG TABLET PO SCH ×2 (06:19→18:01)
[2019-10-19 09:22] VITALS: BP 124/85
[2019-10-19] MEDS: ALBUTEROL SULFATE 2.5 MG/3 ML NPPB SCH (10:28)
[2019-10-19] MEDS: LISINOPRIL 5 MG TABLET PO SCH (10:28)
[2019-10-19] MEDS: BUDESONIDE 0.5 MG/2 ML INHA INH SCH (10:28)
[2019-10-19] MEDS: RIVAROXABAN 15 MG TABLET PO SCH ×2 (10:29→18:01)
[2019-10-19] MEDS: DIGOXIN 0.125 MG TABLET PO SCH (10:30)
[2019-10-19] MEDS: FLUDROCORTISONE 0.1 MG TABLET PO SCH (10:30)
[2019-10-19] MEDS: FUROSEMIDE 20 MG TABLET PO SCH (10:30)
[2019-10-19] MEDS: NICOTINE 21 MG/24 HR PATCH.TD24 TD SCH (10:30)
[2019-10-19] MEDS: SERTRALINE 50MG TABLET PO SCH (10:30)
[2019-10-19] MEDS: ALLOPURINOL 300 MG TABLET PO SCH (10:30)
[2019-10-19] MEDS: DIVALPROEX 250 MG TABLET.DR PO SCH (10:36)
[2019-10-19] MEDS ORDERED: ASPI81TA45 PO (11:21)
[2019-10-19] MEDS ORDERED: FURO20TA3 PO (11:21)
[2019-10-19] MEDS ORDERED: RIVA20TA PO (11:21)
[2019-10-19] MEDS ORDERED: LISI5TAB7 PO (11:21)
[2019-10-19] MEDS ORDERED: RIVA15TA PO (11:21)
[2019-10-19] MEDS ORDERED: FLUD0.1T PO (11:21)
[2019-10-19] MEDS ORDERED: ALLO300T PO (11:21)
[2019-10-19 15:33] VITALS: BP 126/87
[2019-10-27] MEDS ORDERED: RIVAROXABAN 20 MG TABLET PO SCH (17:00)
== END 2019-10-19 19:57 | disposition home health service (06) | DRG 134 ==
LOC: ED 10:04 → EDIP 11:40 → CCU 19:06 → 5SO 10-05 17:44 → 3N 10-08 10:56
PROVIDERS: ADMIT Internal Medicine; ATTEND Internal Medicine
PROC: 06H03DZ Insertion of Intraluminal Device into Inferior Vena Cava, Percutaneous Approach (ICD-10-PCS; principal; 2019-10-04)
PROC: B5191ZA Fluoroscopy of Inferior Vena Cava using Low Osmolar Contrast, Guidance (ICD-10-PCS; 2019-10-04)
DX: I26.99 Other pulmonary embolism without acute cor pulmonale (principal); J96.10 Chronic respiratory failure, unspecified whether with hypoxia or hypercapnia; D68.59 Other primary thrombophilia; I11.0 Hypertensive heart disease with heart failure; I50.22 Chronic systolic (congestive) heart failure; E27.40 Unspecified adrenocortical insufficiency; I42.9 Cardiomyopathy, unspecified; I82.413 Acute embolism and thrombosis of femoral vein, bilateral; E03.9 Hypothyroidism, unspecified; E78.5 Hyperlipidemia, unspecified; F10.21 Alcohol dependence, in remission; F17.200 Nicotine dependence, unspecified, uncomplicated; F31.9 Bipolar disorder, unspecified; G47.33 Obstructive sleep apnea (adult) (pediatric); I25.10 Atherosclerotic heart disease of native coronary artery without angina pectoris; I48.0 Paroxysmal atrial fibrillation; J44.9 Chronic obstructive pulmonary disease, unspecified; J98.11 Atelectasis; M10.9 Gout, unspecified; Z53.9 Procedure and treatment not carried out, unspecified reason; Z79.01 Long term (current) use of anticoagulants; Z86.718 Personal history of other venous thrombosis and embolism; Z91.14 Patient's other noncompliance with medication regimen; Z91.19 Patient's noncompliance with other medical treatment and regimen; Z95.828 Presence of other vascular implants and grafts; Z99.81 Dependence on supplemental oxygen; Z79.899 Other long term (current) drug therapy
CPT/HCPCS: 36415; 37191; 70450; 71045; 71275; 80048; 80053; 80076; 80162; 80164; 82040; 82565; 83880; 84443; 84484; 84550; 85025; 85520; 85651; 86140; 87081; 87324; 93005; 93306; 93970; 94640; 99285; C1880; G0378; J1644; J1650; J2250; J3010; J7613; J7626; Q9967; 92523-GN; C1769; J1160; J1940; J2060; J2310

== ENCOUNTER 2019-12-26 07:39 | Inpatient (IN) | payer MEDICAID ==
[~2019-12-26] VITALS: Ht 180.3 cm; Wt 117.5 kg
[~2019-12-26 07:39] MED LIST changes: +FLUD0.1T PO; +LOSA50TA14 PO; +RIVA15TA PO; +RIVA20TA PO
[2019-12-26] MEDS ORDERED: SODIUM CHLORIDE FLUSH 10ML SYR IVF ONE (08:00)
[2019-12-26] MEDS ORDERED: ONDANSETRON 2MG/ML, 2ML IVPush ONE (08:00)
[2019-12-26 08:39] LABS: BASOPHILS # (AUTO) 0.02 x10^3/uL (0-0.1); BASOPHILS % (AUTO) 0 % (0-1); EOSINOPHILS # (AUTO) 0.07 x10^3/uL (0-0.4); EOSINOPHILS % (AUTO) 1 % (1-7); LYMPHOCYTES # (AUTO) 1.33 x10^3/uL (1-3.4); LYMPHOCYTES % (AUTO) 11 % (22-44); MD NO; MEAN CORPUSCULAR HEMOGLOBIN 30.2 pg (27.5-34.5); MEAN CORPUSCULAR HGB CONC 32.6 g/dL (33.2-36.2); MEAN CORPUSCULAR VOLUME 92.6 fL (81-97); MEAN PLATELET VOLUME 8.1 fL (7.4-10.4); MONOCYTES # (AUTO) 0.77 x10^3/uL (0.2-0.8); MONOCYTES % (AUTO) 6 % (2-9); NEUTROPHILS # (AUTO) 10.54 x10^3/uL (1.8-6.8); NEUTROPHILS % (AUTO) 83 % (42-75); PLATELET COUNT 167 x10^3/uL (130-400); RED BLOOD COUNT 5.01 x10^6/uL (4.38-5.82); RED CELL DISTRIBUTION WIDTH 16.3 % (9.4-14.8)
[2019-12-26 08:46] LABS: INTERNATIONAL NORMALIZED RATIO 0.95 (0.93-1.1); PROTHROMBIN TIME 10.1 Seconds (9.6-11.5)
[2019-12-26 08:50] LABS: ALANINE AMINOTRANSFERASE 23 U/L (12-78); ALBUMIN 3.2 g/dL (3.4-5.0); ANION GAP 7 mmol/L (5-15); CALCIUM 8.8 mg/dL (8.5-10.1); CHLORIDE 110 mmol/L (98-107)
[2019-12-26 08:52] LABS: ALKALINE PHOSPHATASE 78 U/L (45-117); BILIRUBIN,TOTAL 0.5 mg/dL (0.2-1.0); TOTAL PROTEIN 6.3 g/dL (6.4-8.2)
--- NOTE | 2019-12-26 09:00 | NUR ---
THIS PT WAS BIB [facility] FOR ABD PAIN AND NAUSEA. PT IS NOT COMPLAINING OF NAUSEA AT THIS TIME. WILL MEDICATE TO MAR WHEN IV IS ESTABLISHED. PT HAS A HX OF CHF, MULTIPLE PEOPLE TO THE BEDSIDE TO TRY TO ESTABLISH IV ACCESS. EJ TO BE ATTEMPTED. VSS. WILL CONTINUE TO MONITOR.
[2019-12-26] MEDS ORDERED: ONDANSETRON 2MG/ML, 2ML ONE (09:24)
[2019-12-26] MEDS ORDERED: MORPHINE SULFATE 4 MG/ML, 1ML ONE ×2 (09:25→11:19)
[2019-12-26] MEDS: MORPHINE SULFATE 4 MG/ML, 1ML IVPush PRN ×2 (09:27→11:22)
--- NOTE | 2019-12-26 10:19 | NUR ---
PT TO CT AND BACK. SITTING IN BED, NO SIGNS OF DISTRESS.
[2019-12-26] MEDS ORDERED: METRONIDAZOLE PMX 500MG/100ML 100 ML IV ONE (11:00)
[2019-12-26] MEDS ORDERED: CEFOTETAN PMX 1GM/50ML 50 ML IV ONE (11:00)
[2019-12-26 11:08] LABS: MICROSCOPIC INDICATED
[2019-12-26] MEDS ORDERED: CEFOTETAN PMX 1GM/50ML 50 ML ONE (11:17)
--- NOTE | 2019-12-26 11:58 | NUR ---
PT SITTING IN BED, NO SIGNS OF DISTRESS, CALL LIGHT WITHIN REACH.
--- NOTE | 2019-12-26 11:58 | NUR ---
assist RN: report given to ramya march
[2019-12-26] MEDS ORDERED: hydrALAzine 20 MG/ML, 1ML IVPush PRN (12:00)
[2019-12-26] MEDS ORDERED: ONDANSETRON 2MG/ML, 2ML IVPush PRN (12:00)
[2019-12-26] MEDS ORDERED: NICOTINE 14MG/24 HR PATCH.TD24 TD PRN (12:00)
[2019-12-26] MEDS ORDERED: ACETAMINOPHEN 325 MG TABLET PO PRN (12:00)
[2019-12-26] MEDS ORDERED: HEPARIN 5,000 UNITS/ML, 1ML IV ONE (12:30)
[2019-12-26] MEDS ORDERED: IPRATROPIUM 0.5 MG/2.5 ML INHA NPPB SCH (12:30)
[2019-12-26] MEDS: METRONIDAZOLE PMX 500MG/100ML 100 ML IV SCH ×2 (12:55→20:08)
[2019-12-26] MEDS: SODIUM CHLORIDE 0.9% 1,000 ML IV SCH (12:55)
[2019-12-26 13:08] VITALS: BP 130/83
[2019-12-26 13:39] VITALS: BP 120/75
[2019-12-26] MEDS: HEPARIN 25,000 UNITS/250ML PMX 250 ML IV PRN (14:28)
[2019-12-26] MEDS: IPRATROPIUM 0.5 MG/2.5 ML INHA NPPB SCH ×2 (15:55→20:37)
[2019-12-26] MEDS: morphine SULFATE 10 MG/ML, 1ML IVPush PRN ×2 (16:51→20:08)
[2019-12-26] MEDS: CARVEDILOL 3.125 MG TABLET PO SCH (16:52)
[2019-12-26 19:47] VITALS: BP 101/69
[2019-12-26] MEDS: DIVALPROEX 250 MG TAB.ER.24H PO SCH (20:09)
[2019-12-26] MEDS: SIMVASTATIN 10 MG TABLET PO SCH (20:09)
[2019-12-26] MEDS: HEPARIN 5,000 UNITS/ML, 1ML IV PRN (21:37)
[2019-12-26] MEDS: CEFOTETAN PMX 2GM/50ML 50 ML IV SCH (23:17)
[2019-12-27 01:40] VITALS: BP 101/66
[2019-12-27] MEDS: IPRATROPIUM 0.5 MG/2.5 ML INHA NPPB SCH ×4 (02:45→20:02)
[2019-12-27 04:13] LABS: BASOPHILS # (AUTO) 0.02 x10^3/uL (0-0.1); BASOPHILS % (AUTO) 0 % (0-1); EOSINOPHILS # (AUTO) 0.02 x10^3/uL (0-0.4); EOSINOPHILS % (AUTO) 0 % (1-7); LYMPHOCYTES # (AUTO) 1.22 x10^3/uL (1-3.4); LYMPHOCYTES % (AUTO) 11 % (22-44); MD NO; MEAN CORPUSCULAR HEMOGLOBIN 29.9 pg (27.5-34.5); MEAN CORPUSCULAR VOLUME 93.7 fL (81-97); MEAN PLATELET VOLUME 8.5 fL (7.4-10.4); MONOCYTES % (AUTO) 10 % (2-9); NEUTROPHILS # (AUTO) 8.91 x10^3/uL (1.8-6.8); NEUTROPHILS % (AUTO) 79 % (42-75); PLATELET COUNT 173 x10^3/uL (130-400); RED BLOOD COUNT 4.54 x10^6/uL (4.38-5.82); RED CELL DISTRIBUTION WIDTH 16.4 % (9.4-14.8)
[2019-12-27] MEDS: morphine SULFATE 10 MG/ML, 1ML IVPush PRN ×4 (04:15→20:06)
[2019-12-27] MEDS: METRONIDAZOLE PMX 500MG/100ML 100 ML IV SCH ×3 (04:15→20:05)
[2019-12-27 04:24] LABS: ANION GAP 4 mmol/L (5-15); CALCIUM 8.5 mg/dL (8.5-10.1); CHLORIDE 107 mmol/L (98-107); CREATININE 1.51 mg/dL (0.7-1.3)
[2019-12-27] MEDS: ASPIRIN 81 MG TABLET EC PO SCH (05:26)
[2019-12-27] MEDS: OXYcodone IR 5MG TABLET PO PRN ×4 (05:27→22:49)
[2019-12-27] MEDS: LEVOTHYROXINE 100 MCG TABLET PO SCH (05:27)
[2019-12-27] MEDS: CARVEDILOL 3.125 MG TABLET PO SCH ×2 (05:27→18:03)
[2019-12-27] MEDS: SODIUM CHLORIDE 0.9% 1,000 ML IV SCH (05:28)
[2019-12-27] MEDS: HEPARIN 25,000 UNITS/250ML PMX 250 ML IV PRN (08:21)
[2019-12-27] MEDS: DIGOXIN 0.125 MG TABLET PO SCH (08:54)
[2019-12-27] MEDS: DIVALPROEX 250 MG TAB.ER.24H PO SCH ×2 (08:54→20:06)
[2019-12-27] MEDS: LISINOPRIL 5 MG TABLET PO SCH (08:54)
[2019-12-27] MEDS: ARIPIPRAZOLE 10 MG TABLET PO SCH (08:55)
[2019-12-27] MEDS: FLUDROCORTISONE 0.1 MG TABLET PO SCH (08:55)
[2019-12-27] MEDS: FUROSEMIDE 20 MG TABLET PO SCH (08:55)
[2019-12-27] MEDS: ALLOPURINOL 300 MG TABLET PO SCH (08:58)
[2019-12-27] MEDS: SERTRALINE 50MG TABLET PO SCH (08:58)
[2019-12-27] MEDS ORDERED: LORazepam 1MG TABLET PO ONE (11:40)
[2019-12-27 17:03] VITALS: BP 104/73
[2019-12-27 19:49] VITALS: BP 105/67
[2019-12-27] MEDS: SIMVASTATIN 10 MG TABLET PO SCH (20:06)
[2019-12-27] MEDS: CEFOTETAN PMX 2GM/50ML 50 ML IV SCH (22:49)
[2019-12-28] MEDS: morphine SULFATE 10 MG/ML, 1ML IVPush PRN ×4 (01:03→18:19)
[2019-12-28] MEDS: SODIUM CHLORIDE 0.9% 1,000 ML IV SCH (01:03)
[2019-12-28 02:11] VITALS: BP 107/75
[2019-12-28] MEDS: IPRATROPIUM 0.5 MG/2.5 ML INHA NPPB SCH ×4 (03:00→17:05)
[2019-12-28] MEDS: METRONIDAZOLE PMX 500MG/100ML 100 ML IV SCH ×3 (04:06→20:26)
[2019-12-28] MEDS: LEVOTHYROXINE 100 MCG TABLET PO SCH (05:49)
[2019-12-28 05:50] LABS: BASOPHILS # (AUTO) 0.03 x10^3/uL (0-0.1); BASOPHILS % (AUTO) 0 % (0-1); EOSINOPHILS # (AUTO) 0.06 x10^3/uL (0-0.4); EOSINOPHILS % (AUTO) 1 % (1-7); LYMPHOCYTES # (AUTO) 1.25 x10^3/uL (1-3.4); LYMPHOCYTES % (AUTO) 14 % (22-44); MD NO; MEAN CORPUSCULAR HEMOGLOBIN 30.3 pg (27.5-34.5); MEAN CORPUSCULAR HGB CONC 32.7 g/dL (33.2-36.2); MEAN CORPUSCULAR VOLUME 92.7 fL (81-97); MEAN PLATELET VOLUME 8.1 fL (7.4-10.4); MONOCYTES # (AUTO) 1.11 x10^3/uL (0.2-0.8); MONOCYTES % (AUTO) 12 % (2-9); NEUTROPHILS # (AUTO) 6.65 x10^3/uL (1.8-6.8); NEUTROPHILS % (AUTO) 73 % (42-75); PLATELET COUNT 133 x10^3/uL (130-400); RED BLOOD COUNT 4.04 x10^6/uL (4.38-5.82); RED CELL DISTRIBUTION WIDTH 16.3 % (9.4-14.8)
[2019-12-28] MEDS: ASPIRIN 81 MG TABLET EC PO SCH (05:50)
[2019-12-28] MEDS: CARVEDILOL 3.125 MG TABLET PO SCH ×2 (05:50→18:22)
[2019-12-28 05:55] LABS: ANION GAP 4 mmol/L (5-15); CALCIUM 8.3 mg/dL (8.5-10.1); CHLORIDE 107 mmol/L (98-107); CREATININE 1.26 mg/dL (0.7-1.3)
[2019-12-28] MEDS ORDERED: CHLORHEXIDINE 15 ML UDC MM STA (06:31)
[2019-12-28] MEDS ORDERED: BUPIVACAINE/PF-EPI 0.25% 1:200K ONE (06:32)
[2019-12-28] MEDS ORDERED: BUPIVACAINE/PF-EPI 0.5% 1:200K ONE (06:33)
[2019-12-28] MEDS ORDERED: FENTANYL PF 100 MCG/2ML ONE ×2 (06:40→08:02)
[2019-12-28] MEDS ORDERED: EPINEPHRINE 1 MG/ML, 1ML ONE (06:55)
[2019-12-28] MEDS ORDERED: PHENYLEPHRINE 10 MG/ML ONE (06:55)
[2019-12-28] MEDS ORDERED: FENTANYL PF 100 MCG/2ML IV PRN (07:00)
[2019-12-28] MEDS ORDERED: OXYcodone 5 MG/5 ML ORAL.SOL UDC PO PRN (07:00)
[2019-12-28] MEDS ORDERED: HALOPERIDOL 5 MG/ML IV PRN (07:00)
[2019-12-28] MEDS ORDERED: PROMETHAZINE 25 MG/ML, 1ML IVPush PRN (07:00)
[2019-12-28] MEDS ORDERED: MEPERIDINE/PF 25MG/0.5ML IVPush PRN (07:00)
[2019-12-28] MEDS ORDERED: HYDROmorphone 1 MG/ML, 1ML INJ IVPush PRN (07:00)
[2019-12-28] MEDS ORDERED: hydrALAzine 20 MG/ML, 1ML IV PRN (07:00)
[2019-12-28] MEDS ORDERED: LABETALOL 5MG/ML, 20ML IV PRN (07:00)
[2019-12-28] MEDS ORDERED: CEFAZOLIN 1,000 MG ONE (07:31)
[2019-12-28] MEDS ORDERED: ONDANSETRON 2MG/ML, 2ML ONE (07:31)
[2019-12-28] MEDS ORDERED: NEOSTIGMINE 1 MG/ML, 10ML ONE (07:31)
[2019-12-28] MEDS ORDERED: SUGAMMADEX 200 MG/2 ML IVPush ONE ×2 (07:31)
[2019-12-28] MEDS ORDERED: SUCCINYLCHOLINE 20 MG/ML, 10ML ONE (07:31)
[2019-12-28] MEDS ORDERED: GLYCOPYRROLATE 0.2MG/1ML, 5ML ONE (07:31)
[2019-12-28] MEDS ORDERED: ROCURONIUM 10MG/ML,5ML ONE (07:31)
[2019-12-28] MEDS ORDERED: PROPOFOL 10 MG/ML, 20ML ONE (07:31)
[2019-12-28] MEDS ORDERED: DEXAMETHASONE 4 MG/ML, 1ML ONE (07:31)
[2019-12-28 09:38] VITALS: BP 122/81
[2019-12-28] MEDS ORDERED: LACTATED RINGERS 1,000 ML IV SCH (10:30)
[2019-12-28] MEDS: SERTRALINE 50MG TABLET PO SCH (10:32)
[2019-12-28] MEDS: ARIPIPRAZOLE 10 MG TABLET PO SCH (10:32)
[2019-12-28] MEDS: FUROSEMIDE 20 MG TABLET PO SCH (10:32)
[2019-12-28] MEDS: ALLOPURINOL 300 MG TABLET PO SCH (10:32)
[2019-12-28] MEDS: LISINOPRIL 5 MG TABLET PO SCH (10:33)
[2019-12-28] MEDS: DIVALPROEX 250 MG TAB.ER.24H PO SCH ×2 (10:33→20:35)
[2019-12-28] MEDS: DIGOXIN 0.125 MG TABLET PO SCH (10:33)
[2019-12-28] MEDS: FLUDROCORTISONE 0.1 MG TABLET PO SCH (10:33)
[2019-12-28 14:26] VITALS: BP 111/73
[2019-12-28] MEDS: HEPARIN 25,000 UNITS/250ML PMX 250 ML IV PRN (15:19)
[2019-12-28 17:00] VITALS: BP 124/74
[2019-12-28] MEDS: SIMVASTATIN 10 MG TABLET PO SCH (20:35)
[2019-12-28 20:46] VITALS: BP 112/77
[2019-12-28] MEDS: CEFOTETAN PMX 2GM/50ML 50 ML IV SCH (23:09)
[2019-12-28] MEDS: HEPARIN 5,000 UNITS/ML, 1ML IV PRN (23:25)
[2019-12-29] MEDS: morphine SULFATE 10 MG/ML, 1ML IVPush PRN ×2 (01:16→08:57)
[2019-12-29 01:24] VITALS: BP 113/77
[2019-12-29] MEDS: OXYcodone IR 5MG TABLET PO PRN ×2 (02:12→19:21)
[2019-12-29] MEDS: IPRATROPIUM 0.5 MG/2.5 ML INHA NPPB SCH ×4 (03:00→21:00)
[2019-12-29] MEDS: METRONIDAZOLE PMX 500MG/100ML 100 ML IV SCH (04:00)
[2019-12-29] MEDS: LEVOTHYROXINE 100 MCG TABLET PO SCH (06:09)
[2019-12-29] MEDS: ASPIRIN 81 MG TABLET EC PO SCH (06:09)
[2019-12-29] MEDS: CARVEDILOL 3.125 MG TABLET PO SCH ×2 (06:09→18:35)
[2019-12-29 07:10] VITALS: BP 140/76
[2019-12-29] MEDS ORDERED: BISACODYL 10 MG SUPP PR PRN (07:30)
[2019-12-29 08:47] LABS: BASOPHILS # (AUTO) 0.02 x10^3/uL (0-0.1); BASOPHILS % (AUTO) 0 % (0-1); EOSINOPHILS # (AUTO) 0.09 x10^3/uL (0-0.4); EOSINOPHILS % (AUTO) 1 % (1-7); LYMPHOCYTES # (AUTO) 0.97 x10^3/uL (1-3.4); LYMPHOCYTES % (AUTO) 14 % (22-44); MD NO; MEAN CORPUSCULAR HEMOGLOBIN 30.1 pg (27.5-34.5); MEAN CORPUSCULAR HGB CONC 32.4 g/dL (33.2-36.2); MEAN CORPUSCULAR VOLUME 92.9 fL (81-97); MEAN PLATELET VOLUME 8.4 fL (7.4-10.4); MONOCYTES % (AUTO) 12 % (2-9); NEUTROPHILS % (AUTO) 73 % (42-75); PLATELET COUNT 128 x10^3/uL (130-400); RED BLOOD COUNT 4.12 x10^6/uL (4.38-5.82); RED CELL DISTRIBUTION WIDTH 16.1 % (9.4-14.8)
[2019-12-29 08:58] LABS: ALANINE AMINOTRANSFERASE 11 U/L (12-78); ALBUMIN 2.9 g/dL (3.4-5.0); ANION GAP 6 mmol/L (5-15); CALCIUM 8.4 mg/dL (8.5-10.1); CHLORIDE 103 mmol/L (98-107); CREATININE 1.14 mg/dL (0.7-1.3)
[2019-12-29 09:00] LABS: ALKALINE PHOSPHATASE 60 U/L (45-117); BILIRUBIN,TOTAL 0.3 mg/dL (0.2-1.0); TOTAL PROTEIN 5.7 g/dL (6.4-8.2)
[2019-12-29] MEDS: SENNA/DOCUSATE TABLET PO SCH (09:00)
[2019-12-29] MEDS: LISINOPRIL 5 MG TABLET PO SCH (09:00)
[2019-12-29] MEDS: ALLOPURINOL 300 MG TABLET PO SCH (09:01)
[2019-12-29] MEDS: DIGOXIN 0.125 MG TABLET PO SCH (09:01)
[2019-12-29] MEDS: SERTRALINE 50MG TABLET PO SCH (09:01)
[2019-12-29] MEDS: ARIPIPRAZOLE 10 MG TABLET PO SCH (09:01)
[2019-12-29] MEDS: FLUDROCORTISONE 0.1 MG TABLET PO SCH (09:02)
[2019-12-29] MEDS: DIVALPROEX 250 MG TAB.ER.24H PO SCH ×2 (09:38→20:32)
[2019-12-29] MEDS: POLYETHYLENE GLYCOL 17 GM PACKET PO SCH (09:38)
[2019-12-29] MEDS: HEPARIN 5,000 UNITS/ML, 1ML IV PRN ×2 (10:11→19:19)
[2019-12-29] MEDS: HEPARIN 25,000 UNITS/250ML PMX 250 ML IV PRN (10:55)
[2019-12-29 13:25] VITALS: BP 123/81
[2019-12-29 20:00] VITALS: BP 119/81
[2019-12-29] MEDS: SIMVASTATIN 10 MG TABLET PO SCH (20:32)
[2019-12-30] MEDS: OXYcodone IR 5MG TABLET PO PRN (01:44)
[2019-12-30] MEDS: HEPARIN 25,000 UNITS/250ML PMX 250 ML IV PRN (01:53)
[2019-12-30] MEDS: IPRATROPIUM 0.5 MG/2.5 ML INHA NPPB SCH ×3 (02:24→15:00)
[2019-12-30 03:00] VITALS: BP 103/72
[2019-12-30] MEDS: ASPIRIN 81 MG TABLET EC PO SCH (06:04)
[2019-12-30] MEDS: CARVEDILOL 3.125 MG TABLET PO SCH (06:04)
[2019-12-30] MEDS: LEVOTHYROXINE 100 MCG TABLET PO SCH (06:04)
[2019-12-30 07:33] VITALS: BP 116/86
[2019-12-30] MEDS: SENNA/DOCUSATE TABLET PO SCH (09:00)
[2019-12-30] MEDS: ARIPIPRAZOLE 10 MG TABLET PO SCH (09:59)
[2019-12-30] MEDS: DIGOXIN 0.125 MG TABLET PO SCH (09:59)
[2019-12-30] MEDS: FLUDROCORTISONE 0.1 MG TABLET PO SCH (10:00)
[2019-12-30] MEDS: SERTRALINE 50MG TABLET PO SCH (10:00)
[2019-12-30] MEDS: POLYETHYLENE GLYCOL 17 GM PACKET PO SCH (10:01)
[2019-12-30] MEDS: DIVALPROEX 250 MG TAB.ER.24H PO SCH (10:01)
[2019-12-30] MEDS: ALLOPURINOL 300 MG TABLET PO SCH (10:01)
[2019-12-30] MEDS: LISINOPRIL 5 MG TABLET PO SCH (10:01)
[2019-12-30] MEDS ORDERED: OXYC5TAB3 PO (11:29)
[2019-12-30] MEDS ORDERED: RIVA15TA PO (11:29)
[2019-12-30] MEDS ORDERED: RIVA20TA PO (11:29)
[2019-12-30 13:26] VITALS: BP 136/97
[2019-12-30] MEDS ORDERED: RIVAROXABAN 15 MG TABLET PO SCH (17:00)
[2020-01-21] MEDS ORDERED: RIVAROXABAN 20 MG TABLET PO SCH (17:00)
== END 2019-12-30 15:54 | disposition home health service (06) | DRG 234 ==
LOC: ED 08:16 → EDIP 11:02 → 3N 12:10
PROVIDERS: ADMIT Hospitalist; ATTEND Hospitalist
PROC: 02HV33Z Insertion of Infusion Device into Superior Vena Cava, Percutaneous Approach (ICD-10-PCS; 2019-12-27)
PROC: B548ZZA Ultrasonography of Superior Vena Cava, Guidance (ICD-10-PCS; 2019-12-27)
PROC: B5181ZA Fluoroscopy of Superior Vena Cava using Low Osmolar Contrast, Guidance (ICD-10-PCS; 2019-12-27)
PROC: 0DTJ4ZZ Resection of Appendix, Percutaneous Endoscopic Approach (ICD-10-PCS; principal; 2019-12-28 07:00)
DX: K35.80 Unspecified acute appendicitis (principal); I26.99 Other pulmonary embolism without acute cor pulmonale; N17.0 Acute kidney failure with tubular necrosis; J96.11 Chronic respiratory failure with hypoxia; I82.409 Acute embolism and thrombosis of unspecified deep veins of unspecified lower extremity; D68.69 Other thrombophilia; E27.40 Unspecified adrenocortical insufficiency; E11.9 Type 2 diabetes mellitus without complications; I50.22 Chronic systolic (congestive) heart failure; I11.0 Hypertensive heart disease with heart failure; I48.20 Chronic atrial fibrillation, unspecified; E78.5 Hyperlipidemia, unspecified; F31.9 Bipolar disorder, unspecified; G47.33 Obstructive sleep apnea (adult) (pediatric); F17.200 Nicotine dependence, unspecified, uncomplicated; I25.10 Atherosclerotic heart disease of native coronary artery without angina pectoris; J44.9 Chronic obstructive pulmonary disease, unspecified; M10.9 Gout, unspecified; Z79.01 Long term (current) use of anticoagulants; I25.2 Old myocardial infarction; Z86.711 Personal history of pulmonary embolism; Z86.718 Personal history of other venous thrombosis and embolism; Z86.73 Personal history of transient ischemic attack (TIA), and cerebral infarction without residual deficits; Z91.19 Patient's noncompliance with other medical treatment and regimen; Z99.81 Dependence on supplemental oxygen
CPT/HCPCS: 36415; 36573; 74177; 80048; 80053; 81001; 83690; 83735; 84100; 85025; 85520; 85610; 88304; 94640; 99285; G0378; J0171; J0690; J1100; J1644; J2405; J2704; J2710; J3010; J7644; C1751; J0330; J2270; J2370; J3490; J7030; J7120

== ENCOUNTER 2020-07-24 16:19 | Emergency (ER) | payer MEDICAID ==
[~2020-07-24] VITALS: Ht 182.9 cm; Wt 110.0 kg
[~2020-07-24 16:19] MED LIST changes: +MULT-449 PO; -MULT1TAB60 PO; +OXYC5TAB3 PO
[2020-07-24 16:23] VITALS: BP 112/87
[2020-07-24] MEDS ORDERED: SODIUM CHLORIDE FLUSH 10ML SYR IVF ONE (16:30)
== END 2020-07-24 18:25 | disposition left against medical advice (07) ==
LOC: ED 16:49
DX: R10.9 Unspecified abdominal pain (principal); J44.9 Chronic obstructive pulmonary disease, unspecified; Z90.89 Acquired absence of other organs
CPT/HCPCS: 99283